=== PATIENT | female | born 1945 | race Caucasian/White ===

== ENCOUNTER → 2017-10-19 09:49 | Outpatient (CLI) | payer MEDICARE, OTHER, SELFPAY ==
[2017-10-19 11:45] LABS: COMMENT (LAB VIEW ONLY) 196.26 mg/dL; Microalb ug/mg Crea 8.5 ug/mg Cr
[2017-10-19 11:48] LABS: Hemoglobin A1C 5.9 % (4.5-6.2)
[2017-10-19 11:54] LABS: ALT 26 U/L (12-78); AST 19 U/L (15-37); Albumin 3.5 g/dL (3.4-5.0); Alkaline Phosphatase 117 U/L (46-116); Anion Gap 9.9 mmol/L (3-11); BUN 23 mg/dL (7-18); Bilirubin, Total 0.4 mg/dL (0.2-1.0); CO2 26.1 mmol/L (21.0-32.0); CREATININE 1.14 mg/dL (0.55-1.02); Calcium 9.2 mg/dL (8.5-10.1); Chloride 104 mmol/L (98-107); Estimated GFR 46.99 (mL/min/1.73m2); Glucose 94 mg/dL (70-100); Potassium 4.2 mmol/L (3.5-5.1); Sodium 140 mmol/L (136-145); TSH (W/Ref FT4) 2.23 uIU/mL (0.358-3.74); Uric Acid 4.9 mg/dL (2.6-6.0)
[2017-10-19 12:07] LABS: Cholesterol 174 mg/dL (50-200); HDL Cholesterol 64 mg/dL (40-60); LDL CHOLESTEROL 94 mg/dL (<100); Triglyceride 137 mg/dL (30-150)
== END ==
PROVIDERS: PCP Family Medicine; Visit Provider Family Medicine
DX: E11.9 Type 2 diabetes mellitus without complications (principal); E78.5 Hyperlipidemia, unspecified; I10 Essential (primary) hypertension; R73.09 Other abnormal glucose; G47.30 Sleep apnea, unspecified; R94.6 Abnormal results of thyroid function studies
CPT/HCPCS: 36415; 80053; 80061; 83721; 82043; 82570; 83036; 84443; 84550

== ENCOUNTER → 2017-10-20 01:53 | Outpatient (CLI) | payer MEDICARE, OTHER, SELFPAY ==
--- NOTE | 2017-10-20 12:43 | DI.REPORT_ITS ---
SYMPTOM/DIAGNOSIS: ABNORMAL CAROTID ON CT, R93.9, ABNORMAL CAROTID US, COUGH, FEELING OF UNABLE TO CLEAR THROAT CAROTID ULTRASOUND: Comparison is made with CT of the neck dated 09/07/17. The internal carotid arteries are quite tortuous. Foci of calcific plaque are seen in the common carotid bulbs and proximal internal carotid arteries. The velocities measurements obtained were within the normal range. No significant stenosis is visualized. There is shadowing in the proximal left internal carotid artery which is suboptimally evaluated. Both vertebral arteries show antegrade flow. IMPRESSION: Mild calcific plaque. No significant internal carotid artery stenosis. Tortuous internal carotid arteries.
== END ==
PROVIDERS: PCP Family Medicine; Visit Provider Family Medicine
DX: R93.8 Abnormal findings on diagnostic imaging of other specified body structures (principal); I65.23 Occlusion and stenosis of bilateral carotid arteries; I77.1 Stricture of artery; R05 Cough
CPT/HCPCS: 93880

== ENCOUNTER 2017-12-26 17:24 | Emergency (ER) | payer MEDICARE, OTHER, SELFPAY ==
[2017-12-26 17:31] VITALS: BP 167/94; PULSE 107; RESP 20; TEMP 36.4; O2SAT 94
--- NOTE | 2017-12-26 18:18 | DI.RAD_ITS ---
SYMPTOM/DIAGNOSIS: COUGH,SOB, H/O BRONCHIECTASIS PA AND LATERAL CHEST: Comparison is made with 04/07/16. Heart size and pulmonary vasculature are stable and within normal limits. There is plate atelectasis in the left lung base. The lungs are otherwise clear. No effusions or pneumothoraces are identified. The bones are intact. IMPRESSION: Plate atelectasis in the left lung base.
[2017-12-26 18:31] LABS: BE (Venous) 0.5 mmol/L (-3-3); HCO3 (Venous) 25 mmol/L (22-28); O2 Sat (Venous) 91 % (70-80); TCO2 (Venous) 22 mmol/L (22-29); pCO2 (Venous) 35 mm/Hg (34-47); pH (Venous) 7.45 (7.32-7.43); pO2 (Venous) 56 mm/Hg (28-44)
[2017-12-26] MEDS: Albuterol/Ipratropium 3 ML UPD VIAL UPD (18:39)
[2017-12-26 18:41] LABS: Abs Immature Grans 0.02 k/cumm (0.0-0.09); Absolute Eosinophil Count 0.25 k/cumm (0.0-0.7); Absolute Lymphocyte Count 1.42 k/cumm (1.2-3.4); Absolute Monocyte Count 1.15 k/cumm (0.11-0.7); Basophils % 0.3; Eosinophils % 2.1; HCT 42.4 % (36.0-46.0); HGB 13.7 g/dL (12.0-15.5); Immature Grans % 0.2; Mean Corp. HGB Concentration 32.3 g/dL (32.0-36.0); Mean Corpuscular Hemoglobin 28.2 pg (27.0-33.0); Mean Corpuscular Volume 87.2 fL (80-95); Mean Platelet Volume 10.6 fL (8.0-11.0); Monocytes % 9.7; Neutrophils % 75.7; Platelet Count 292 x1000/uL (130-400); RBC 4.86 m/cumm (4.00-5.20); RBC Distribution Width 15.2 % (11.7-14.6); White Blood Cell Count 11.85 k/cumm (4.4-10.8)
[2017-12-26 18:46] LABS: Absolute Basophil Count 0.04 k/cumm (0.0-0.2); Absolute Neutrophil Count 8.97 k/cumm (1.2-6.7)
[2017-12-26 18:53] LABS: ALT 32 U/L (12-78); AST 20 U/L (15-37); Albumin 3.2 g/dL (3.4-5.0); Alkaline Phosphatase 122 U/L (46-116); Anion Gap 13.3 mmol/L (3-11); BUN 15 mg/dL (7-18); Bilirubin, Total 0.5 mg/dL (0.2-1.0); CO2 23.7 mmol/L (21.0-32.0); CREATININE 1.05 mg/dL (0.55-1.02); Calcium 9.4 mg/dL (8.5-10.1); Chloride 99 mmol/L (98-107); Estimated GFR 51.66 (mL/min/1.73m2); Glucose 120 mg/dL (70-100); Potassium 3.8 mmol/L (3.5-5.1); Sodium 136 mmol/L (136-145); Total Protein 7.7 g/dL (6.4-8.2)
[2017-12-26 18:54] LABS: Troponin I < 0.02 ng/mL (0.00-0.06)
--- NOTE | 2017-12-26 19:24 | W.ED.GENAD ---
Discharge Plan Disposition Patient Disposition: HOME Condition: Good Discharge Details Chief Complaint: RespSymp Clinical Impression: Pneumonia Primary Care Provider: Khalida Cole ED Provider: Danilo Garcia Home Meds and New Rx's Prescriptions: New azithromycin 250 mg tablet 250 mg PO DAILY 4 Days Qty: 4 RF: 0 prednisone 50 MG tablet 50 mg PO DAILY Qty: 5 RF: 0 ipratropium-albuterol 0.5 mg-3 mg(2.5 mg base)/3 mL solution for nebulization 3 ml IH Q6H Qty: 90 RF: 0 No Action adjuvant AS01B (PF)vial 1 of 2 [Shingrix Adjuvant Component-PF] suspension 0.5 ml IM ONCE Qty: 0.5 RF: 1 lysine [L-Lysine] 500 MG capsule 500 mg PO DAILY RF: 0 ascorbic acid (vitamin C) [Vitamin C] 500 MG tablet 1,000 mg PO DAILY RF: 0 cholecalciferol (vitamin D3) 1,000 UNIT capsule 2 cap PO DAILY RF: 0 calcium-vitamin D3-vitamin K [Viactiv] 1 EACH tablet,chewable 1 ea PO DAILY RF: 0 inhaler,assist devices,access [EasiVent Mask Large] 1 EACH device 1 ea Miscellaneous DIRECTED RF: 0 CENTRUM TABLET 1 EACH tablet 1 tab PO DAILY RF: 0 magnesium oxide 400 MG tablet 400 mg PO BID Qty: 180 RF: 12 albuterol sulfate [ProAir HFA] 8.5 GM HFA aerosol inhaler 2 puff Inhalation Q4H PRN Qty: 3 RF: 4 triamcinolone acetonide 80 GM ointment 5 gm Topical BID PRNQty: 80 RF: 2 simvastatin [Zocor] 20 MG tablet 20 mg PO HS Qty: 90 RF: 4 fluticasone furoate [Flonase Sensimist] 9.9 ML spray,suspension 9.9 ml NS BID RF: 0 esomeprazole magnesium [Nexium] 40 MG capsule,delayed release(DR/EC) 40 mg PO BID Qty: 180 RF: 4 fluticasone-salmeterol [Advair Diskus] 1 EACH blister with device 1 puff Inhalation BID Qty: 3 RF: 11 hydroxyzine pamoate [Vistaril] 25 MG capsule 25 mg PO TID PRNQty: 270 RF: 4 duloxetine [Cymbalta] 30 MG capsule,delayed release(DR/EC) 1 cap PO DAILY Qty: 90 RF: 4 duloxetine [Cymbalta] 60 MG capsule,delayed release(DR/EC) 60 mg PO DAILY Qty: 90 RF: 12 tiotropium bromide [Spiriva with HandiHaler] 18 MCG capsule, w/inhalation device 1 puff Inhalation DAILY Qty: 3 RF: 11 levothyroxine 25 MCG tablet 25 mcg PO DAILY Qty: 90 RF: 11 meloxicam 15 MG tablet 15 mg PO DAILY Qty: 90 RF: 12 losartan 25 MG tablet 25 mg PO DAILY Qty: 90 RF: 12 Varicella-Zoster Ge/As01b/Pf [Shingrix Vial Kit] 50 MCG INJ 50 mcg IM ONCE Qty: 1 RF: 1 acyclovir 15 GM ointment 1 gm Topical TID Qty: 1 RF: 11 mirabegron [Myrbetriq] 25 MG tablet extended release 24 hr 25 mg PO DAILY Qty: 90 RF: 11 metoprolol succinate 100 mg Tablet Extended Release 24 Hr 100 mg PO DAILY RF: 0 cetirizine 10 mg Tablet,Chewable 1 tab PO BID RF: 0 Discharge Instructions Instructions: Pneumonia (ED) Additional Instructions: Please take the antibiotic, steroid, and breathing treatments as directed. If you notice any worsening of your symptoms, or any new symptoms such as vomiting, diarrhea, fever, chills, shortness of breath, chest pain, numbness, weakness, or fainting , please return immediately to the emergency department for reevaluation. Please follow up with your primary care provider as soon as possible for reassessment and reevaluation. As always, it was a pleasure participating in your medical care today. Referrals: Khalida Cole MD, [place] [Primary Care Provider] - Medical Decision Making This is a pleasant 72-year-old female with past medical history of bronchiectasis, COPD, hypertension and high cholesterol. She presents today for 4 days of cough with productive green sputum, subjective temperature at home which she states was roughly 100, some mild shortness of breath. She denies any red flags for pulmonary embolism. Physical exam demonstrates notable wheezes and mild crackles in her lung bases. With a productive green sputum, I am concerned for pneumonia versus bronchitis. We will get a chest x-ray, perform a cardiac workup secondary to the mild chest pain that she has. I feel that it is most likely secondary to a cough and potential bronchitis versus pneumonia, and less likely cardiac in etiology. EKG 18: 33 Rate 92, intervals normal, normal sinus rhythm, no ST elevations or depressions, questionable Q waves in lead III, inverted T wave in V1. No other significant abnormalities. 8 PM Patient's laboratory workup demonstrates mildly elevated white count at 11.8, no bandemia. VBG demonstrates no signs of CO2 retention. Renal function is at her baseline, no other significant abnormalities, troponin is normal. EKG is benign. The patient has notable improvement of her symptoms after her updraft treatment. Chest x-ray is negative for any acute process however I do feel that the patient is certainly suffering from clinical pneumonia with fever, reductive cough, and breath sounds. We will give the patient a first dose of azithromycin here, steroids for home use, and duo nebs for home use with her home nebulizer. We discussed red flags which to return the patient understands. I have extensively reviewed the treatment plan and discharge instructions with the patient and their family. I have addressed all patient concerns at this time. The patient and family was made aware of what symptoms to monitor for that would warrant a return to the emergency department. Discussed the plan with the patient and family, they demonstrate verbal understanding and agreement with our assessment and plan at this time. HPI General Date/Time Provider Initiated Documentation: 12/26/17 18:17. HPI Narrative: This is a 72-year-old female with a past medical history of COPD, bronchiectasis, hypertension, high cholesterol, and 5 weeks of a hoarse throat for which she is getting GI follow-up for evaluation. She and her both present today for symptoms of cough with productive sputum. They state that 4 days ago there exposed to a family member who had symptoms of an upper respiratory infection cough, since then they have had symptoms of cough, with productive sputum. The patient states that she has had a very mild chest pain, but only associated with cough, nonpleuritic, no heavy weight on her chest, no arm or neck pain. She denies any history of cardiac disease. Her sputum has been green in color. She had a temperature at home of 100 ?F today. She was previously on 5 days of steroids by her PCP for her hoarse throat, and had a prescription for azithromycin but threw it away, and is requesting a new one. The patient denies any severe shortness of breath, significant wheeze. She does take her breathing treatments at home and she states that these significantly improve her symptoms. Denies PE risk factors such as recent long car rides, immobilization, recent surgery, prior history of DVT or PE, family history of PE or DVT, morbid obesity, exogenous estrogen and smoking, hemoptysis, history of cancer. Patient denies any other complaints, or any other modifying factors at this time. She denies any recent surgeries, she denies any pertinent family history Related Data Home Medications Medication Instructions Recorded Confirmed Centrum Tablet 1 tab PO DAILY 05/14/12 11/19/17 ascorbic acid (vitamin C) [Vitamin 1,000 mg PO DAILY 05/14/12 12/26/17 C] calcium-vitamin D3-vitamin K 1 ea PO DAILY tab.chew 05/14/12 12/26/17 [Viactiv] cholecalciferol (vitamin D3) 2 cap PO DAILY 05/14/12 12/26/17 inhaler,assist devices,access ea 05/14/12 11/19/17 [EasiVent Mask Large] lysine [L-Lysine] 500 mg PO DAILY 05/14/12 12/26/17 albuterol sulfate [ProAir HFA] 2 puff INHALATION Q4H PRN #3 06/06/13 12/26/17 inhaler magnesium oxide 400 mg PO BID #180 tab 06/06/13 12/26/17 triamcinolone acetonide 5 gm TOPICAL BID PRN #80 ml 06/02/16 12/26/17 simvastatin [Zocor] 20 mg PO HS #90 tab 04/06/17 12/26/17 duloxetine [Cymbalta] 1 cap PO DAILY #90 cap 04/23/17 12/26/17 duloxetine [Cymbalta] 60 mg PO DAILY #90 tab-cap 04/23/17 12/26/17 esomeprazole magnesium [Nexium] 40 mg PO BID #180 tab-cap 04/23/17 12/26/17 fluticasone furoate [Flonase 9.9 ml NS BID 04/23/17 12/26/17 Sensimist] fluticasone-salmeterol [Advair 1 puff INHALATION BID #3 disk 04/23/17 12/26/17 500/50 Diskus] hydroxyzine pamoate [Vistaril] 25 mg PO TID PRN #270 cap 04/23/17 12/26/17 tiotropium bromide [Spiriva 1 puff INHALATION DAILY #3 canister 04/23/17 12/26/17 Handihaler] levothyroxine 25 mcg PO DAILY #90 tab-cap 05/26/17 12/26/17 losartan 25 mg PO DAILY #90 tab-cap 07/20/17 12/26/17 meloxicam 15 mg PO DAILY #90 tab-cap 07/20/17 12/26/17 acyclovir 1 gm TOPICAL TID #1 tube 08/01/17 12/26/17 mirabegron [Myrbetriq] 25 mg PO DAILY #90 tab-cap 10/19/17 12/26/17 adjuvant AS01B (PF), component 0.5 ml IM ONCE #0.5 ml 11/19/17 12/26/17 vial 1 of 2 intramuscular suspension azithromycin 250 mg PO DAILY 4 Days #4 tab 12/26/17 cetirizine 1 tab PO BID 12/26/17 12/26/17 ipratropium-albuterol 3 ml IH Q6H #90 ml 12/26/17 metoprolol succinate 100 mg PO DAILY 12/26/17 12/26/17 prednisone 50 mg PO DAILY #5 tab 12/26/17 Previous Rx's Medication Instructions Recorded simvastatin [Zocor] 20 mg PO HS #90 tab 04/06/17 duloxetine [Cymbalta] 1 cap PO DAILY #90 cap 04/23/17 duloxetine [Cymbalta] 60 mg PO DAILY #90 tab-cap 04/23/17 esomeprazole magnesium [Nexium] 40 mg PO BID #180 tab-cap 04/23/17 fluticasone-salmeterol [Advair 1 puff INHALATION BID #3 disk 04/23/17 500/50 Diskus] tiotropium bromide [Spiriva 1 puff INHALATION DAILY #3 canister 04/23/17 Handihaler] levothyroxine 25 mcg PO DAILY #90 tab-cap 05/26/17 losartan 25 mg PO DAILY #90 tab-cap 07/20/17 meloxicam 15 mg PO DAILY #90 tab-cap 07/20/17 acyclovir 1 gm TOPICAL TID #1 tube 08/01/17 mirabegron [Myrbetriq] 25 mg PO DAILY #90 tab-cap 10/19/17 adjuvant AS01B (PF), component 0.5 ml IM ONCE #0.5 ml 11/19/17 vial 1 of 2 intramuscular suspension azithromycin 250 mg PO DAILY 4 Days #4 tab 12/26/17 ipratropium-albuterol 3 ml IH Q6H #90 ml 12/26/17 prednisone 50 mg PO DAILY #5 tab 12/26/17 Allergies Allergy/AdvReac Type Severity Reaction Status Date / Time enalapril Allergy Unknown SKIN RASH Unverified 12/26/17 17:37 hydrochlorothiazide Allergy Unknown Unverified 12/26/17 17:37 pneumococcal vaccine Allergy Unknown Unverified 12/26/17 17:37 nitrofurantoin Allergy SKIN RASH Unverified 12/26/17 17:37 Sulfa (Sulfonamide Allergy RASH Unverified 12/26/17 17:37 Antibiotics) oxycodone AdvReac Intermediate VOMITING Unverified 12/26/17 17:37 General Stated Complaint: RespSymp CARLOS: 3 Review of Systems Review of Systems All systems reviewed & are unremarkable except as noted in HPI and below PFSH Family History Mother Heart disease Father Substance abuse Alcohol abuse Heart disease Neoplasm Asthma Sister Diabetes Alcohol abuse Heart disease Grandfather No problems noted. Grandfather No problems noted. Grandmother Diabetes Grandmother Heart disease Sister Diabetes Son Substance abuse Alcohol abuse Essential hypertension Asthma Daughter Depression Social History household members: other details: 2 current occupational status: retired frequency: 3-4 times per week duration: < 15 minutes/day Smoking/Tobacco Use Status: Former Tobacco Use alcohol intake: current alcohol intake frequency: a few times a month substance use type: does not use sera/jew: c agree to transfusion: No Surgical History Bladder Surgery Cholecystectomy (~1994) Colonoscopy - MAC (~2003) Extraction of cataract (09/07/12) Ligation of fallopian tube (~1976) Reduction mammoplasty (~2013) Rotator Cuff Repair back surgery (~04/2006) Exam Narrative Exam Narrative: 1.Const: Well-nourished, Well-developed, appearing stated age 2.Eyes: PERRL, no conjunctival injection, and symmetrical lids. 3.ENT: Atraumatic external nose and ears. Moist MM. Neck: Symmetric, trachea midline, No thyromegaly. 4.CVS: +S1/S2, No murmurs or gallops. Peripheral pulses 2+ and equal in all extremities. Brisk capillary refill in all extremities. 5.RESP: Unlabored respiratory effort. Mild wheezes, minimal crackles. No rhonchi. 6.GI: Soft, Nontender/Nondistended, No hepatosplenomegaly. No guarding or rebound. 7.MSK: Normocephalic/Atraumatic, Extremities w/o deformity or ttp No cyanosis or clubbing, Normal movement of all extremities. No calf tenderness. Negative Homans sign. 8.Skin: Warm, Dry. No rashes or lesions. 9.Neuro: bat person II-XII grossly intact. Sensation grossly intact, no focal neurologic deficits. 10.Psych: (AAO) x3. Appropriate mood and affect Course Vital Signs Temperature 36.4 C L 12/26/17 17:31 Pulse 107 H 12/26/17 17:31 Respiratory Rate 20 12/26/17 17:31 Blood Pressure 167/94 H 12/26/17 17:31 Pulse Oximetry 94 L 12/26/17 17:31 Temperature 36.4 C L 12/26/17 17:31 Pulse 107 H 12/26/17 17:31 Respiratory Rate 20 12/26/17 17:31 Respiratory Effort 12/26/17 17:55 Blood Pressure 167/94 H 12/26/17 17:31 Pulse Oximetry 94 L 12/26/17 17:31 Pain Level 8 12/26/17 17:31 Lab/Test Results Lab/Test Results: Laboratory Tests Range/Units 12/26/17 12/26/17 12/26/17 18:22 18:22 18:22 WBC (4.4-10.8) k/cumm 11.85 H RBC (4.00-5.20) m/cumm 4.86 Hgb (12.0-15.5) g/dL 13.7 Hct (36.0-46.0) % 42.4 MCV (80-95) fL 87.2 MCH (27.0-33.0) pg 28.2 MCHC (32.0-36.0) g/dL 32.3 RDW (11.7-14.6) % 15.2 H Plt Count (130-400) x1000/uL 292 MPV (8.0-11.0) fL 10.6 Immature Gran % 0.2 Neutrophils % 75.7 Lymphocytes % 12.0 Monocytes % 9.7 Eosinophils % 2.1 Basophils % 0.3 Absolute Neutrophils (1.2-6.7) k/cumm 8.97 H Absolute Lymphocytes (1.2-3.4) k/cumm 1.42 Absolute Monocytes (0.11-0.7) k/cumm 1.15 H Absolute Eosinophils (0.0-0.7) k/cumm 0.25 Absolute Basophils (0.0-0.2) k/cumm 0.04 VBG pH (7.32-7.43) 7.45 H VBG pCO2 (34-47) mm/Hg 35 VBG pO2 (28-44) mm/Hg 56 H VBG HCO3 (22-28) mmol/L 25 VBG Total CO2 (22-29) mmol/L 22 VBG O2 Saturation (70-80) % 91 H VBG Base Excess (-3-3) mmol/L 0.5 Sodium (136-145) mmol/L 136 Potassium (3.5-5.1) mmol/L 3.8 Chloride (98-107) mmol/L 99 Carbon Dioxide (21.0-32.0) mmol/L 23.7 Anion Gap (3-11) mmol/L 13.3 H BUN (7-18) mg/dL 15 Creatinine (0.55-1.02) mg/dL 1.05 H Estimated GFR/1.73 m2 (mL/min/1.73m2) 51.66 Glucose (70-100) mg/dL 120 H Calcium (8.5-10.1) mg/dL 9.4 Total Bilirubin (0.2-1.0) mg/dL 0.5 AST (15-37) U/L 20 ALT (12-78) U/L 32 Alkaline Phosphatase (46-116) U/L 122 H Troponin I (0.00-0.06) ng/mL < 0.02 Total Protein (6.4-8.2) g/dL 7.7 Albumin (3.4-5.0) g/dL 3.2 L
--- NOTE | 2017-12-26 19:34 | DI.VRAD_ITS ---
EXAM: XR Chest, 2 Views CLINICAL HISTORY: 72 years old, female; Signs and symptoms; Cough TECHNIQUE: Frontal and lateral views of the chest. COMPARISON: CR CHEST 2 VIEWS PA,LAT 04/07/2016 10:55 AM FINDINGS: Lungs: The base atelectasis no acute pulmonary infiltrate. No consolidation. Pleural space: Unremarkable. No pneumothorax. Heart: Unremarkable. No cardiomegaly. Mediastinum: Possible hiatal hernia. Bones/joints: Degenerative change of the spine. Vasculature: Uncoiled aorta. IMPRESSION: No acute findings. Dictated and Authenticated by: Heath Calvillo MD. Ordering:IRA DAWN MD
[2017-12-26] MEDS: Azithromycin 250 MG TAB 500 MG PO (19:50)
[2017-12-26 20:19] VITALS: BP 123/65; PULSE 110; RESP 18; TEMP 37.2; O2SAT 95
== END 2017-12-26 20:34 | disposition home or self-care (01) ==
PROVIDERS: Emergency Provider Student in an Organized Health Care Education/Training Program; PCP Family Medicine
DX: J18.9 Pneumonia, unspecified organism (principal); I12.9 Hypertensive chronic kidney disease with stage 1 through stage 4 chronic kidney disease, or unspecified chronic kidney disease; N18.9 Chronic kidney disease, unspecified; J44.9 Chronic obstructive pulmonary disease, unspecified; Z87.891 Personal history of nicotine dependence
CPT/HCPCS: 36415; 80053; 82805; 93005; 99285; 71046; 84484; 85025; 93010; J7620

== ENCOUNTER 2018-01-22 14:43 | Outpatient (REF) | payer MEDICARE, OTHER, SELFPAY | END 2018-01-22 15:03 | LOC: LBN 14:43 | PROVIDERS: PCP Family Medicine; Visit Provider Nurse Practitioner | DX: J47.9 Bronchiectasis, uncomplicated (principal) | CPT/HCPCS: 87077; 87070; 87205 ==

== ENCOUNTER 2018-06-04 16:41 | Outpatient (REF) | payer MEDICARE, OTHER, SELFPAY | END 2018-06-04 17:01 | LOC: LBN 16:41 | PROVIDERS: PCP Family Medicine; Visit Provider Family Medicine | DX: N39.0 Urinary tract infection, site not specified (principal) | CPT/HCPCS: 87077; 87086; 87186 ==

== ENCOUNTER 2018-07-06 13:12 | Outpatient (REF) | payer MEDICARE, OTHER, SELFPAY ==
[2018-07-06 13:58] LABS: Bilirubin Negative (Negative); Blood Moderate (Negative); Clarity Cloudy; Glucose Negative (Negative); Ketones Negative (Negative); Leukocyte Esterase Small (Negative); Nitrite Negative (Negative); Specific Gravity 1.025 (1.005-1.025); Urobilinogen 0.2 EU/dL (Up TO 0.2)
[2018-07-06 14:10] LABS: WBC 20-50 HPF (0-5)
[2018-07-06 14:11] LABS: Bacteria Few HPF (Negative); C & S Indicated? Yes; Casts Negative LPF (Negative); Crystals Negative HPF (Negative); Epithelial Cells Few HPF (Negative); Mucus Negative (Negative); RBC >50 (0-2)
== END 2018-07-06 13:32 ==
LOC: LBN 13:12
PROVIDERS: PCP Family Medicine; Visit Provider Family Medicine
DX: R35.0 Frequency of micturition (principal)
CPT/HCPCS: 81003; 81015; 87086

== ENCOUNTER 2018-07-10 10:43 | Outpatient (REF) | payer MEDICARE, OTHER, SELFPAY ==
[2018-07-10 11:44] LABS: Bilirubin Negative (Negative); Blood Negative (Negative); Clarity Clear; Glucose Negative (Negative); Ketones Negative (Negative); Leukocyte Esterase Trace (Negative); Nitrite Negative (Negative); Urobilinogen 0.2 EU/dL (Up TO 0.2)
[2018-07-10 11:55] LABS: C & S Indicated? C&S Done As Ordered
== END 2018-07-10 11:03 ==
LOC: LBN 10:43
PROVIDERS: PCP Family Medicine; Visit Provider Family Medicine
DX: R35.0 Frequency of micturition (principal)
CPT/HCPCS: 81003; 81015; 87086

== ENCOUNTER 2018-08-26 00:46 | Outpatient (CLI) | payer MEDICARE, OTHER, SELFPAY ==
--- NOTE | 2018-08-26 12:02 | DI.MAMMO_ITS ---
SYMPTOM/DIAGNOSIS: SCREENING Z12.31 MAMMOGRAM: 08/26 Mammograms were interpreted according to the usual protocol including computer analysis with CAD system, tomosynthesis and C view imaging. The breasts are of moderate density with fairly symmetrical distribution of fibroglandular tissue. The patient has reportedly had previous reduction mammoplasty and there are apparent bilateral oil cysts of the breasts unchanged in appearance in comparison with examination of July 2016, No new mass or clumped microcalcification seen. CONCLUSION: No specific evidence of malignancy at this time. Routine screening examinations are suggested at yearly intervals in this age group according to the ACS/ACR guidelines. Category 1, breast density category B MQSA ASSESSMENT OF FINDINGS: Negative. Category 1. Patient will receive a letter notifying them of these results. BI-RADS category B. There are scattered areas of fibroglandular density.
== END 2018-08-26 01:06 ==
PROVIDERS: PCP Family Medicine; Visit Provider Family Medicine
DX: Z12.31 Encounter for screening mammogram for malignant neoplasm of breast (principal)
CPT/HCPCS: 77063; 77067

== ENCOUNTER 2018-09-03 13:54 | Outpatient (REF) | payer MEDICARE, OTHER, SELFPAY | END 2018-09-03 14:14 | LOC: LBN 13:54 | PROVIDERS: PCP Family Medicine; Visit Provider Internal Medicine | DX: J47.9 Bronchiectasis, uncomplicated (principal) | CPT/HCPCS: 87077; 87070; 87205 ==

== ENCOUNTER 2018-10-21 02:25 | Outpatient (CLI) | payer MEDICARE, OTHER, SELFPAY ==
[2018-10-21 12:14] LABS: ALT 23 U/L (12-78); AST 18 U/L (15-37); Albumin 3.3 g/dL (3.4-5.0); Alkaline Phosphatase 124 U/L (46-116); Anion Gap 11.7 mmol/L (3-11); BUN 18 mg/dL (7-18); Bilirubin, Total 0.4 mg/dL (0.2-1.0); CO2 23.3 mmol/L (21.0-32.0); CREATININE 1.04 mg/dL (0.55-1.02); Calcium 9.1 mg/dL (8.5-10.1); Calculated LDL 93 mg/dL; Chloride 106 mmol/L (98-107); Cholesterol 177 mg/dL (50-200); Estimated GFR 52.09 (mL/min/1.73m2); Glucose 125 mg/dL (70-100); HDL Cholesterol 59 mg/dL (40-60); Potassium 3.9 mmol/L (3.5-5.1); Sodium 141 mmol/L (136-145); TSH (W/Ref FT4) 6.62 uIU/mL (0.36-3.74); Total Protein 6.5 g/dL (6.4-8.2); Triglyceride 125 mg/dL (30-150)
[2018-10-21 12:38] LABS: FREE T4 0.98 ng/dL (0.76-1.46)
== END 2018-10-21 02:45 ==
PROVIDERS: PCP Family Medicine; Visit Provider Family Medicine
DX: E03.9 Hypothyroidism, unspecified (principal); I10 Essential (primary) hypertension; E78.5 Hyperlipidemia, unspecified; J47.9 Bronchiectasis, uncomplicated; E11.9 Type 2 diabetes mellitus without complications
CPT/HCPCS: 36415; 80053; 80061; 83721; 83036; 84439; 84443

== ENCOUNTER 2018-10-28 23:00 | Outpatient (REF) | payer MEDICARE, OTHER, SELFPAY ==
[2018-10-28 19:16] LABS: Bilirubin Negative (Negative); Blood Trace-intact (Negative); Clarity Cloudy (Clear); Glucose Negative (Negative); Ketones Negative (Negative); Leukocyte Esterase Large (Negative); Nitrite Negative (Negative); Urobilinogen 0.2 EU/dL (Up TO 0.2)
[2018-10-28 19:50] LABS: Bacteria Packed HPF (Negative); C & S Indicated? Yes; WBC >50 HPF (0-5)
== END 2018-10-28 23:20 ==
LOC: LBN 23:00
PROVIDERS: PCP Family Medicine; Visit Provider Family Medicine
DX: N39.0 Urinary tract infection, site not specified (principal)
CPT/HCPCS: 87077; 81003; 81015; 87086; 87186

== ENCOUNTER 2018-10-29 00:25 | Outpatient (CLI) | payer MEDICARE, OTHER, SELFPAY ==
--- NOTE | 2018-10-29 10:14 | DI.RAD_ITS ---
SYMPTOM/DIAGNOSIS: LEFT SHOULDER PAIN M25.512, G89.29 LEFT SHOULDER: There is some spurring at the AC joint undersurface of the acromion. Spurring is also noted at the glenoid and inferior humeral head. The humeral head is normally positioned. The glenohumeral joint is well maintained. No tendon or joint space calcifications are seen. IMPRESSION: Mild to moderate degenerative changes.
== END 2018-10-29 00:45 ==
PROVIDERS: PCP Family Medicine; Visit Provider Family Medicine
DX: G89.29 Other chronic pain (principal); M25.512 Pain in left shoulder; M19.012 Primary osteoarthritis, left shoulder
CPT/HCPCS: 73030

== ENCOUNTER 2018-12-09 08:24 | Emergency (ER) | payer MEDICARE, OTHER, SELFPAY ==
[2018-12-09 08:28] VITALS: BP 168/89; PULSE 75; RESP 20; TEMP 36.1; O2SAT 96
--- NOTE | 2018-12-09 08:39 | ED.GENADUL_ITS ---
Discharge Plan Disposition Patient Disposition: HOME Condition: Stable Discharge Details Chief Complaint: Abd Prob Clinical Impression: Complex ovarian cyst, Abdominal pain Primary Care Provider: Khalida Cole ED Provider: Mary Fritz Home Meds and New Rx's Prescriptions: New hydrocodone-acetaminophen [Supply] 5-325 mg tablet 1 tab PO Q6H PRN (Reason: pain) Qty: 7 RF: 0 ondansetron 4 mg tablet,disintegrating 4 mg PO Q6H PRN (Reason: nausea and vomiting) Qty: 10 RF: 0 Continued Dexilant 60 mg capsule,biphase delayed releas 60 mg PO DAILY Qty: 90 RF: 5 Flonase Sensimist 27.5 mcg/actuation spray,suspension 1 spray NS BID Qty: 47.4 RF: 5 nystatin 100,000 unit/mL suspension 2 ml PO QID Qty: 250 RF: 3 albuterol sulfate [Proventil HFA] 90 mcg/actuation HFA aerosol inhaler 2 puff IH Q6H PRN (Reason: shortness of breath or wheezing) Qty: 18 RF: 4 meloxicam 15 mg tablet 15 mg PO DAILY Qty: 90 RF: 12 levothyroxine 25 mcg tablet 25 mcg PO DAILY RF: 0 Shingrix Adjuvant Component-PF suspension 1 ml IM ONCE Qty: 0.5 RF: 1 L-Lysine 500 MG capsule 500 mg PO DAILY RF: 0 cholecalciferol (vitamin D3) 1,000 UNIT capsule 2 cap PO DAILY RF: 0 calcium-vitamin D3-vitamin K [Viactiv] 1 EACH tablet,chewable 1 ea PO DAILY RF: 0 (DME) EasiVent Mask Large 1 EACH device 1 ea Miscellaneous DIRECTED RF: 0 CENTRUM TABLET 1 EACH tablet 1 tab PO DAILY RF: 0 magnesium oxide 400 MG tablet 400 mg PO BID Qty: 180 RF: 12 triamcinolone acetonide 80 GM ointment 5 gm Topical BID PRNQty: 80 RF: 2 acyclovir 15 GM ointment 1 gm Topical TID Qty: 1 RF: 11 duloxetine [Cymbalta] 60 mg capsule,delayed release(DR/EC) 60 mg PO DAILY Qty: 90 RF: 12 duloxetine [Cymbalta] 30 mg capsule,delayed release(DR/EC) 30 mg PO DAILY Qty: 90 RF: 4 fluticasone propion-salmeterol [Advair Diskus] 500-50 mcg/dose blister with device 1 inh Inhalation BID Qty: 3 RF: 11 metoprolol succinate 100 mg tablet extended release 24 hr 100 mg PO DAILY Qty: 90 RF: 4 Spiriva with HandiHaler 18 mcg capsule, w/inhalation device 1 cap Inhalation DAILY Qty: 90 RF: 11 simvastatin [Zocor] 20 mg tablet 20 mg PO HS Qty: 90 RF: 4 losartan 25 mg tablet 25 mg PO DAILY Qty: 90 RF: 12 hydroxyzine pamoate [Vistaril] 25 mg capsule 25 mg PO TID PRN (Reason: nausea and vomiting) Qty: 270 RF: 0 metoclopramide HCl 5 mg tablet 5 mg PO BID Qty: 180 RF: 4 cetirizine 10 mg Tablet,Chewable 1 tab PO BID RF: 0 ipratropium-albuterol 0.5 mg-3 mg(2.5 mg base)/3 mL solution for nebulization 3 ml IH Q6H Qty: 90 RF: 0 Discharge Instructions Instructions: Ovarian Cyst (ED) Additional Instructions: Encourage hydration. Please begin a stool softener such as MiraLAX to help prevent constipation while you are taking the opiate pain medications. You have a large 18 cm ovarian mass that will need further evaluation with gynecology. You have an appointment tomorrow at 3:[address] Siddiqi and women's wellness. You may use the hydrocodone as prescribed to help with discomfort. Take care of that this artery contains 325 mg of Tylenol and you should not exceed your daily total of Tylenol by 3000 mg. You may use the Zofran as prescribed if your nausea vomiting recurs. If you develop new or worsening symptoms please seek care urgently once again. Referrals: Sandra Siddiqi [ [facility] STAFF PHYSICIAN] - 12/10/18 3:20 pm Discharge Data Discharge Date/Time-TO BE ENTERED AT DEPARTURE: 12/09/18 13:27 Medical Decision Making Patient 73-year-old female presenting today accompanied by her , with chief complaint of abdominal pain. She reports that she is been having some diffuse abdominal pain for the past several weeks. Has been seen by her primary care for this. Patient was assisting with some mild constipation. She reports that she continues to have bowel movements daily but they have been more firm and she has had to strain more than typical. Denies any blood in her stool. States that she has increased fiber. Has minimal water intake throughout the course the day at her report. She reports that yesterday, she noted new onset of severe discomfort in the left flank. States this pain radiates down towards the left lower quadrant. She denies any dysuria, hematuria, increased frequency urgency. No vaginal discharge. States she also has some discomfort in the low central abdomen. Past surgical history pertinent for tubal ligation, lap scopic cholecystectomy. Patient has history of anxiety, PTSD, gastritis, diabetes, nephropathy, hemorrhoids, Giardia, hypokalemia, irritable colon, fibromyalgia, reflux esophagitis, hyperlipidemia, hypothyroidism, hypertension. Her last colonoscopy was in 2015. At that time, no acute abnormalities were noted on the colonoscopy. Patient also underwent an EGD at that time. She reports that with the new onset of left flank pain yesterday, she also had nausea and dry heaves. At that point, had not been expensing any nausea has no change in her appetite.. Is not currently nauseated. Was able to have ruth tea this morning with no increase or change in his symptoms. Had 3 bowel movements last night which is atypical for her. States that they were softer than her typical. No blood in her stool. No vaginal symptoms. On exam, patient is an obese 73-year-old female. She is resting comfortably. She does seem to have pain particular with movement and laying supine. She reports laying supine or on her sides because the pain to increase. She has no CVA tenderness but does indicate this area is area of maximal discomfort. No rashes noted over this area. Abdomen is significant for tenderness in the left upper and left lower quadrant with no guarding, rebound tenderness or peritoneal findings. Hypoactive bowel sounds noted. She does report that she had multiple bowel movements last night, states that the stools were slightly softer last night. Passing flatus today. Labs reviewed. Patient has no leukocytosis, she is not anemic. Mild anion gap of 13. constulted with Dr. Siddiqi who will see the patient as soon as possible in clinic. I do not feel that hte patient has an emergent issue with this as her pain has been increasing over several weeks and that she has no peritoneal findings. I did advise that with her pain she should be evaluated sooner than later, Dr. Siddiqi hoping to get her in for evaluation within the next 24 hours. Requested transvaginal US. Will obtain prior to discharge. Transvaginal ultrasound was obtained and reviewed by radiologist: FINDINGS: Pelvic ultrasound was performed transabdominally and transvaginally. There is a large pelvic abdominal mass as identified on CT. Uterus is retroflexed and unremarkable in appearance with 1-2 millimeter thick homogeneous endometrial stripe. The ovaries are not specifically visualized. The mass measures 17 cm in greatest diameter and is for dominantly cyst cystic with some thickened septations and thickened wall as identified CT. No gross abnormality identified on Doppler evaluation. IMPRESSION: Large probable abdominal mass, presumably ovarian origin, but not specifically identified as originating from right or left ovary. Findings highly suspicious for ovarian carcinoma in this age group. Patient is an appointment tomorrow with gynecology. She will be prescribed a short of Supply to help with her discomfort was found. She has no recurrent nausea. She is given strict return precautions. All other questions and concer ns were addressed and she is in agreement this plan. [facility] General Mode of arrival: ambulatory . Date/Time Provider Initiated Documentation: 12/09/18 08:39 . Limitations to Documentation: no limitations . Information obtained by: patient, family () and RN notes reviewed . History of Present Illness 73 year old F presents to the emergency department with the chief complaint of abdominal pain, described as severe, with intensity rated at 10. Quality is described as aching, and is localized to the abdomen. Patient reports radiation to back (indicates left flank as area of maximal tenderness). Patient started experiencing this week(s) (generalized pain began several weeks ago, left flank pain began yesterday) and it has been constant. other things that improve symptom(s), (upright position) Other factors that worsen symptoms (laying supine) . Patient notes denies chest pain, cough, diaphoresis, fever/chills, headaches, loss of appetite, malaise, nausea/vomiting, rash, shortness of breath and weakness. Patient did receive the following treatments prior to arrival, none Related Data Home Medications Medication Instructions Recorded Confirmed Centrum Tablet 1 tab PO DAILY 05/14/12 12/10/18 EasiVent Mask Large ea 05/14/12 12/10/18 L-Lysine 500 mg PO DAILY 05/14/12 12/10/18 calcium-vitamin D3-vitamin K 1 ea PO DAILY tab.chew 05/14/12 12/10/18 [Viactiv] cholecalciferol (vitamin D3) 2 cap PO DAILY 05/14/12 12/10/18 magnesium oxide 400 mg PO BID #180 tab 06/06/13 12/10/18 triamcinolone acetonide 5 gm TOPICAL BID PRN #80 ml 06/02/16 12/10/18 acyclovir 1 gm TOPICAL TID #1 tube 08/01/17 12/10/18 cetirizine 1 tab PO BID 12/26/17 12/10/18 ipratropium-albuterol 3 ml IH Q6H #90 ml 12/26/17 12/10/18 dexlansoprazole 60 mg 60 mg PO DAILY #90 cap 01/26/18 12/10/18 capsule,biphase delayed release fluticasone furoate 27.5 1 spray NS BID #47.4 ml 01/26/18 12/10/18 mcg/actuation nasal spray,suspension nystatin 100,000 unit/mL oral 2 ml PO QID #250 ml 01/26/18 12/10/18 suspension duloxetine 30 mg capsule,delayed 30 mg PO DAILY #90 cap 05/04/18 12/10/18 release duloxetine 60 mg capsule,delayed 60 mg PO DAILY #90 tab-cap 05/04/18 12/10/18 release fluticasone 500 mcg-salmeterol 50 1 inh INHALATION BID #3 each 05/04/18 12/09/18 mcg/dose blistr powdr for inhalation metoprolol succinate 100 mg 100 mg PO DAILY #90 tab 05/04/18 12/10/18 tablet,extended release 24 hr tiotropium bromide 18 mcg capsule 1 cap INHALATION DAILY #90 inh 05/04/18 12/10/18 with inhalation device simvastatin 20 mg tablet 20 mg PO HS #90 tab 07/05/18 12/10/18 losartan 25 mg tablet 25 mg PO DAILY #90 tab-cap 08/23/18 12/10/18 adjuvant AS01B (PF)vial 1 of 2 1 ml IM ONCE #0.5 ml 08/26/18 12/09/18 levothyroxine 25 mcg tablet 25 mcg PO DAILY tab-cap 08/26/18 12/10/18 hydroxyzine pamoate 25 mg capsule 25 mg PO TID PRN #270 cap 09/22/18 12/10/18 metoclopramide HCl 5 mg tablet 5 mg PO BID #180 tab 09/26/18 12/10/18 albuterol sulfate 90 mcg/actuation 2 puff IH Q6H PRN #18 gm 10/26/18 12/10/18 aerosol inhaler meloxicam 15 mg tablet 15 mg PO DAILY #90 tab-cap 10/26/18 12/10/18 hydrocodone-acetaminophen [Supply] 1 tab PO Q6H PRN #7 tab 12/09/18 12/10/18 ondansetron 4 mg PO Q6H PRN #10 tab 12/09/18 12/10/18 Previous Rx's Medication Instructions Recorded acyclovir 1 gm TOPICAL TID #1 tube 08/01/17 ipratropium-albuterol 3 ml IH Q6H #90 ml 12/26/17 dexlansoprazole 60 mg 60 mg PO DAILY #90 cap 01/26/18 capsule,biphase delayed release fluticasone furoate 27.5 1 spray NS BID #47.4 ml 01/26/18 mcg/actuation nasal spray,suspension nystatin 100,000 unit/mL oral 2 ml PO QID #250 ml 01/26/18 suspension duloxetine 30 mg capsule,delayed 30 mg PO DAILY #90 cap 05/04/18 release duloxetine 60 mg capsule,delayed 60 mg PO DAILY #90 tab-cap 05/04/18 release fluticasone 500 mcg-salmeterol 50 1 inh INHALATION BID #3 each 05/04/18 mcg/dose blistr powdr for inhalation metoprolol succinate 100 mg 100 mg PO DAILY #90 tab 05/04/18 tablet,extended release 24 hr tiotropium bromide 18 mcg capsule 1 cap INHALATION DAILY #90 inh 05/04/18 with inhalation device simvastatin 20 mg tablet 20 mg PO HS #90 tab 07/05/18 losartan 25 mg tablet 25 mg PO DAILY #90 tab-cap 08/23/18 adjuvant AS01B (PF)vial 1 of 2 1 ml IM ONCE #0.5 ml 08/26/18 hydroxyzine pamoate 25 mg capsule 25 mg PO TID PRN #270 cap 09/22/18 metoclopramide HCl 5 mg tablet 5 mg PO BID #180 tab 09/26/18 albuterol sulfate 90 mcg/actuation 2 puff IH Q6H PRN #18 gm 10/26/18 aerosol inhaler meloxicam 15 mg tablet 15 mg PO DAILY #90 tab-cap 10/26/18 hydrocodone-acetaminophen [Supply] 1 tab PO Q6H PRN #7 tab 12/09/18 ondansetron 4 mg PO Q6H PRN #10 tab 12/09/18 Allergies Allergy/AdvReac Type Severity Reaction Status Date / Time enalapril Allergy Unknown SKIN RASH Verified 12/10/18 15:33 hydrochlorothiazide Allergy Unknown Verified 12/10/18 15:33 pneumococcal vaccine Allergy Unknown Verified 12/10/18 15:33 nitrofurantoin Allergy SKIN RASH Verified 12/10/18 15:33 Sulfa (Sulfonamide Allergy RASH Verified 12/10/18 15:33 Antibiotics) oxycodone AdvReac Intermediate VOMITING Verified 12/10/18 15:33 General Stated Complaint: Abd Prob CARLOS: 3 Review of Systems Constitutional Constitutional: Reports as per HPI, Denies chills, Denies fatigue, Denies fever(s) and Denies headache(s) ENT Ears, Nose, Mouth, and Throat: Denies headache(s) Cardiovascular Cardiovascular: Reports as per HPI, Denies chest pain and Denies dyspnea Respiratory Respiratory: Reports as per HPI, Denies cough and Denies dyspnea Gastrointestinal Gastrointestinal: Reports as per HPI Genitourinary Genitourinary: Reports as per HPI, Denies abnormal vaginal bleeding, Denies hematuria, Denies dysuria, Reports flank pain, Denies urinary incontinence, Denies urinary urgency and Denies vaginal discharge Musculoskeletal Musculoskeletal: Reports as per HPI and Denies back pain Integumentary/Breasts Skin/Breast: Reports as per HPI and Denies rash Neurologic Neurologic: Reports as per HPI and Denies headache(s) Endocrine Endocrine: Denies fatigue [facility] Medical History Acute gastritis without mention of hemorrhage (Resolved) 10/31/09 Asthma (Resolved) 05/17/12 Balance problem (Resolved 01/02/15) Bronchiolectasis (Acute) Chronic cough (Chronic 11/20/16) Cortical senile cataract (Chronic 05/11/12) 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 (Resolved) 03/28/14 DM (diabetes mellitus) (Resolved) 05/11/12 A1C 6.6 03/16 Edema (Resolved) 06/29/06 left leg; neg u/s Esophageal reflux (Chronic) GERD/gastritis/HH Essential hypertension (Chronic 11/30/12) First degree hemorrhoids (Resolved) 01/02/15 Giardiasis (Resolved) Gout (Resolved) secondary to HCTZ Hyperlipidemia (Chronic) Hypokalemia (Resolved) secondary to HCTZ Hypothyroid (Chronic) Impaired renal function disorder (Resolved) 01/29/03 Incontinence in female (Chronic 10/19/17) Increased body mass index (Chronic) Irritable colon (Resolved) 01/29/97 w/lactose intolerance Left anterior knee pain (Resolved 10/01/15) Low back pain (Resolved 11/29/05) 1 cm. ant. and lat. mass ? disc/synovial cyst; marked compression of nerve root; 07/06-Post surgery MRI=scarring left; multi level DJD/ sm. extended disc L2-3; L4-5 Multinodular goiter (Chronic 10/22/16) Neck pain (Resolved) bilateral foraminal narrowing at C5-C6; C4-C-5 s/p back surgery Nuclear sclerosis (Resolved) 05/11/12 Organic sleep apnea, unspecified (Chronic) Osteoarthritis (Resolved) 05/30/06 right thumb Primary fibromyalgia syndrome (Resolved) Rash and nonspecific skin eruption (Resolved) 02/01/15 Reflux esophagitis (Chronic 03/20/15) Shoulder pain (Resolved) MRI 05/05 NEG ROTATOR CUFF TEAR. MILD BRUSITIS-?DEGENERATION OF LABRUM S/P OPERATION rotator cuff repair x 2 Smoker (Resolved) quit 1982 Strain of gastrocnemius muscle of left lower extremity (Resolved) 12/10/15 subsequent encounter Synovial cyst of left knee (Chronic 10/23/15) 4 by 3 cm Vaginal atrophy (Chronic 01/02/15) Wheezing (Chronic 02/01/15) Surgical History back surgery (~04/2006) EXCIS SPINAL CORD LESION Bladder Surgery laparoscopic Bladder suspension Cholecystectomy (~1994) 1994 Colonoscopy - MAC (~2003) Extraction of cataract (09/07/12) DR. GARCIA; RIGHT EYE/LEFT EYE H/O bilateral breast reduction surgery (Resolved) 01/09/14 difficult healing History of back surgery (Resolved) 04/30/06 excision of spinal cord lesion History of bilateral tubal ligation (Resolved) History of bladder suspension procedure (Resolved) laproscopic History of reduction mammoplasty (Chronic 02/07/14) Ligation of fallopian tube (~1976) Reduction mammoplasty (~2013) Rotator Cuff Repair x 2 S/P cataract extraction and insertion of intraocular lens (Resolved) 08/30/12 Dr. Garcia; OD S/P cholecystectomy (Resolved) 03/02/94 Family History Mother Heart disease Father Substance abuse Alcohol abuse Heart disease Neoplasm THROAT Asthma Sister Diabetes Alcohol abuse Heart disease Grandfather No problems noted. Grandfather No problems noted. Grandmother Diabetes Grandmother Heart disease Sister Diabetes Son Substance abuse Alcohol abuse Essential hypertension Asthma Daughter Depression Social History Smoking/Tobacco Use Status: Former Tobacco Use Alcohol Intake: current Alcohol Intake frequency: a few times a month Drug use: Never Substance use type: does not use Household members: other Details: 2 Pets and animals: No What is your relationship status?: Panel score (0-1 are the most socially isolated patients): 1 Duration: < 15 minutes/day Frequency: 3-4 times per week Subha/Jehovah'S Witness: c Agree to transfusion: No Seatbelt use: always Drive intox 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 Working smoke detector in home: No Carbon monox detector in home: No Firearms in home: Yes Firearms unloaded and locked: Yes Exam Const General: cooperative, healthy appearing, comfortable, no acute distress and well developed Nutritional Appearance: well nourished and obese Orientation: alert and awake [facility] Head: normal to inspection Mouth: moist mucous membranes Resp Effort & Inspection: normal respiratory effort, able to speak in complete sentences and no respiratory distress Auscultation: clear to auscultation bilaterally, no rales, no rhonchi and no wheezes Cardio Rate: regular rate Rhythm: regular rhythm Heart Sounds: S1 normal and S2 normal GI Inspection: non-distended, obesity, scar (well healed consistent with history), no visible herniation and no visible pulsation Palpation: soft, no hepatosplenomegaly, no aortic enlargement, not firm, no guarding, no hepatosplenomegaly, no hernias, no masses, no pulsatile masses, not rigid and tender in the LLQ and in the LUQ; obturator sign negative, psoas sign negative and with no rebound tenderness Percussion: normal to percussion Auscultation: hypoactive bowel sounds Back/Spine/Pelvis Back: no CVA tenderness Skin General skin exam: no rashes or lesions noted Trauma: no lacerations or abrasions Neuro General: alert and awake Cognition: normal cognition Speech: speech normal Gait: normal gait Psych Appearance: grossly normal and well kempt Mental Status: mental status grossly normal Speech and Movement: speech and movement normal Course Vital Signs Vital signs: Vital Signs Temperature 36.1 C L 12/09/18 08:28 Pulse 75 12/09/18 08:28 Respiratory Rate 20 12/09/18 08:28 Blood Pressure 168/89 H 12/09/18 08:28 Pulse Oximetry 96 12/09/18 08:28 Temperature 36.1 C L 12/09/18 08:28 Temperature Source Tympanic 12/09/18 08:28 Pulse 75 12/09/18 08:28 Respiratory Rate 20 12/09/18 08:28 Respiratory Effort Non-Labored 12/09/18 08:32 Blood Pressure 168/89 H 12/09/18 08:28 Pulse Oximetry 96 12/09/18 08:28 Oxygen Delivery Method Room Air 12/09/18 08:28 Oxygen Flow Rate 0 12/09/18 08:28 Pain Level 10 12/09/18 08:32
[2018-12-09] MEDS: Normal Saline 1,000 ML 125 ML IV (09:10)
[2018-12-09] MEDS: Normal Saline Flush 10 ML SYR IVP (09:10)
[2018-12-09 09:22] LABS: Abs Immature Grans 0.02 k/cumm (0.0-0.09); Absolute Basophil Count 0.02 k/cumm (0.0-0.2); Absolute Eosinophil Count 0.27 k/cumm (0.0-0.7); Absolute Lymphocyte Count 1.34 k/cumm (1.2-3.4); Absolute Monocyte Count 0.69 k/cumm (0.11-0.7); Absolute Neutrophil Count 7.16 k/cumm (1.2-6.7); Basophils % 0.2; Eosinophils % 2.8; HCT 41.6 % (36.0-46.0); HGB 13.6 g/dL (12.0-15.5); Immature Grans % 0.2; Lymphocytes % 14.1; Mean Corp. HGB Concentration 32.7 g/dL (32.0-36.0); Mean Corpuscular Hemoglobin 28.6 pg (27.0-33.0); Mean Corpuscular Volume 87.6 fL (80-95); Mean Platelet Volume 10.5 fL (8.0-11.0); Monocytes % 7.3; Neutrophils % 75.4; Platelet Count 275 x1000/uL (130-400); RBC 4.75 m/cumm (4.00-5.20); RBC Distribution Width 14.9 % (11.7-14.6)
[2018-12-09] MEDS: Ondansetron 4 MG/2 ML VIAL IVP (09:22)
[2018-12-09] MEDS: MORPHine 10 MG/ML VIAL 2 MG IVP (09:23)
[2018-12-09 09:42] LABS: ALT 24 U/L (14-59); AST 22 U/L (15-37); Albumin 3.4 g/dL (3.4-5.0); Alkaline Phosphatase 130 U/L (46-116); BUN 15 mg/dL (7-18); Bilirubin, Total 0.4 mg/dL (0.2-1.0); CREATININE 1.06 mg/dL (0.55-1.02); Calcium 9.1 mg/dL (8.5-10.1); Chloride 104 mmol/L (98-107); Estimated GFR 50.96 (mL/min/1.73m2); Glucose 116 mg/dL (70-100); Lipase 137 U/L (73-393); Potassium 3.8 mmol/L (3.5-5.1); Sodium 140 mmol/L (136-145); Total Protein 7.2 g/dL (6.4-8.2)
[2018-12-09] MEDS: HYDROmorphone 2 MG/ML VIAL 1 MG IVP (10:30)
--- NOTE | 2018-12-09 10:46 | DI.CT_ITS ---
EXAM: CT ABDOMEN PELVIS W CLINICAL HISTORY: LUQ and LLQ pain. TECHNIQUE: COMPARISON: ABD PELVIS WITH CONTRAST from 07/17/2008 FINDINGS: CT examination of the pelvis was performed bolus infusion of 100 cc of Omnipaque 350 and ingestion di lute barium. There is a large retrocardiac hiatus hernia containing significant portion the stomach. Images obtained through the lung bases show areas of predominantly linear scarring or atelectasis. There are marked degenerative changes of lumbar spine. Gallbladder has been surgically removed. Co mmon bile duct mildly dilated at about 15 millimeters. No definite stone but the possibility of dist al obstruction is not excluded and correlation with MRCP is suggested. Pancreas appears intact as does the spleen. No focal hepatic abnormality seen. Abdominal aorta is o f normal diameter and no major vascular abnormality is seen. Adrenals and kidneys are unremarkable w ith the tiny bilateral renal cortical cysts noted. No gross abdominal or pelvic adenopathy seen. No significant abdominal wall hernia seen. Appendix is normal. No evidence of diverticulitis or bowel obstruction. There is a predominantly water attenuation mass of the pelvis 0 abdominal region measuring up to abou t 18 cm in diameter. This contains thick septae and nodular wall excrescences. This may arise eithe r from right or left ovary. Uterus grossly unremarkable. No free fluid identified. IMPRESSION: Large pelvic/abdominal mass presumably of ovarian origin, the findings as described are highly sugges tive of ovarian carcinoma. Biopsy suggested. Question mild extrahepatic biliary obstruction, correlation with MRCP should be considered.
[2018-12-09 11:10] LABS: Bilirubin Negative (Negative); Blood Trace-intact (Negative); Clarity Clear (Clear); Glucose Negative (Negative); Ketones Negative (Negative); Leukocyte Esterase Negative (Negative); Nitrite Negative (Negative); Urobilinogen 0.2 EU/dL (Up TO 0.2)
[2018-12-09 11:30] LABS: Bacteria Negative HPF (Negative); C & S Indicated? No; Casts Negative LPF (Negative); Crystals Negative HPF (Negative); Epithelial Cells Few HPF (Negative); Mucus Negative (Negative); WBC 0-2 HPF (0-5)
--- NOTE | 2018-12-09 11:34 | DI.US_ITS ---
EXAM: US PELVIS TRANSVAGINAL CLINICAL HISTORY: 18cm right ovarian cyst. TECHNIQUE: Ultrasound performed using standard protocol. COMPARISON: CAROTID ULTRASOUND from 10/20/2017 FINDINGS: Pelvic ultrasound was performed transabdominally and transvaginally. There is a large pelvic abdomin al mass as identified on CT. Uterus is retroflexed and unremarkable in appearance with 1-2 millimete r thick homogeneous endometrial stripe. The ovaries are not specifically visualized. The mass measu res 17 cm in greatest diameter and is for dominantly cyst cystic with some thickened septations and t hickened wall as identified CT. No gross abnormality identified on Doppler evaluation. IMPRESSION: Large probable abdominal mass, presumably ovarian origin, but not specifically identified as originat ing from right or left ovary. Findings highly suspicious for ovarian carcinoma in this age group.
--- NOTE | 2018-12-09 12:20 | NUR.NOTE ---
Nursing Note: pt returned from us, vitals obtained, denies any needs at this time. continue to monitor.
[2018-12-09 12:22] VITALS: BP 159/86; PULSE 72; RESP 16; O2SAT 98
== END 2018-12-09 13:27 | disposition home or self-care (01) ==
PROVIDERS: Emergency Provider Physician Assistant; PCP Family Medicine
DX: N83.201 Unspecified ovarian cyst, right side (principal); R10.9 Unspecified abdominal pain; E11.22 Type 2 diabetes mellitus with diabetic chronic kidney disease; I10 Essential (primary) hypertension
CPT/HCPCS: 36415; 80053; 83690; 96361; 96374; 96375; 99285; 74177; 76830; 76856; 81003; 81015; 85025; 99284; J2270; J2405

== ENCOUNTER 2019-01-26 15:23 | Emergency (ER) | payer MEDICARE, OTHER, SELFPAY ==
[2019-01-26] VITALS (21 sets, daily range): BP systolic 125–175; BP diastolic 50–80; PULSE 76–82; RESP 16; TEMP 37; O2SAT 90–99
[2019-01-26 16:00] LABS: Abs Immature Grans 0.01 k/cumm (0.0-0.09); Absolute Basophil Count 0.03 k/cumm (0.0-0.2); Absolute Eosinophil Count 0.89 k/cumm (0.0-0.7); Absolute Lymphocyte Count 1.57 k/cumm (1.2-3.4); Absolute Monocyte Count 0.89 k/cumm (0.11-0.7); Absolute Neutrophil Count 6.77 k/cumm (1.2-6.7); Basophils % 0.3; Eosinophils % 8.8; HCT 40.4 % (36.0-46.0); HGB 12.8 g/dL (12.0-15.5); Immature Grans % 0.1; Lymphocytes % 15.5; Mean Corp. HGB Concentration 31.7 g/dL (32.0-36.0); Mean Corpuscular Hemoglobin 27.6 pg (27.0-33.0); Mean Corpuscular Volume 87.3 fL (80-95); Mean Platelet Volume 10.9 fL (8.0-11.0); Monocytes % 8.8; Neutrophils % 66.5; Platelet Count 321 x1000/uL (130-400); RBC 4.63 m/cumm (4.00-5.20); RBC Distribution Width 15.9 % (11.7-14.6); White Blood Cell Count 10.16 k/cumm (4.4-10.8)
[2019-01-26 16:08] LABS: Prothrombin Time 10.5 sec (9.3-11.0)
--- NOTE | 2019-01-26 16:08 | ED.GENADUL_ITS ---
Discharge Plan Disposition Patient Disposition: [facility] Condition: Serious Discharge Details Chief Complaint: Abd Prob Clinical Impression: Dehiscence of incision Primary Care Provider: Khalida Cole ED Provider: Mary Fritz Home Meds and New Rx's Prescriptions: No Action docusate sodium 100 mg capsule 100 mg PO DAILY RF: 0 ibuprofen 600 mg tablet 600 mg PO Q8H PRNRF: 0 Dexilant 60 mg capsule,biphase delayed releas 60 mg PO DAILY Qty: 90 RF: 5 Flonase Sensimist 27.5 mcg/actuation spray,suspension 1 spray NS BID Qty: 47.4 RF: 5 albuterol sulfate [Proventil HFA] 90 mcg/actuation HFA aerosol inhaler 2 puff IH Q6H PRN (Reason: shortness of breath or wheezing) Qty: 18 RF: 4 meloxicam 15 mg tablet 15 mg PO DAILY Qty: 90 RF: 12 levothyroxine 25 mcg tablet 25 mcg PO DAILY RF: 0 Shingrix Adjuvant Component-PF suspension 1 ml IM ONCE Qty: 0.5 RF: 1 L-Lysine 500 MG capsule 500 mg PO DAILY RF: 0 cholecalciferol (vitamin D3) 1,000 UNIT capsule 2 cap PO DAILY RF: 0 calcium-vitamin D3-vitamin K [Viactiv] 1 EACH tablet,chewable 1 ea PO DAILY RF: 0 (DME) EasiVent Mask Large 1 EACH device 1 ea Miscellaneous DIRECTED RF: 0 CENTRUM TABLET 1 EACH tablet 1 tab PO DAILY RF: 0 magnesium oxide 400 MG tablet 400 mg PO BID Qty: 180 RF: 12 triamcinolone acetonide 80 GM ointment 5 gm Topical BID PRNQty: 80 RF: 2 acyclovir 15 GM ointment 1 gm Topical TID Qty: 1 RF: 11 duloxetine [Cymbalta] 60 mg capsule,delayed release(DR/EC) 60 mg PO DAILY Qty: 90 RF: 12 duloxetine [Cymbalta] 30 mg capsule,delayed release(DR/EC) 30 mg PO DAILY Qty: 90 RF: 4 fluticasone propion-salmeterol [Advair Diskus] 500-50 mcg/dose blister with device 1 inh Inhalation BID Qty: 3 RF: 11 metoprolol succinate 100 mg tablet extended release 24 hr 100 mg PO DAILY Qty: 90 RF: 4 Spiriva with HandiHaler 18 mcg capsule, w/inhalation device 1 cap Inhalation DAILY Qty: 90 RF: 11 simvastatin [Zocor] 20 mg tablet 20 mg PO HS Qty: 90 RF: 4 losartan 25 mg tablet 25 mg PO DAILY Qty: 90 RF: 12 hydroxyzine pamoate [Vistaril] 25 mg capsule 25 mg PO TID PRN (Reason: nausea and vomiting) Qty: 270 RF: 0 metoclopramide HCl 5 mg tablet 5 mg PO BID Qty: 180 RF: 4 Myrbetriq 25 mg tablet extended release 24 hr 25 mg PO DAILY Qty: 90 RF: 11 cetirizine 10 mg Tablet,Chewable 1 tab PO BID RF: 0 ipratropium-albuterol 0.5 mg-3 mg(2.5 mg base)/3 mL solution for nebulization 3 ml IH Q6H Qty: 90 RF: 0 hydrocodone-acetaminophen [Broct[place]] 5-325 mg tablet 1 tab PO Q6H PRN (Reason: pain) Qty: 7 RF: 0 ondansetron 4 mg tablet,disintegrating 4 mg PO Q6H PRN (Reason: nausea and vomiting) Qty: 10 RF: 0 Medical Decision Making Patient is a pleasant 73-year-old female presents today with chief complaint of dehisced wound to her abdomen. Patient underwent a total hysterectomy on 12/28/2018. Uneventful postoperative course. Reports her abdomen feels improved. Preoperatively. However, she notes some blood in her underwear today and has been related to wound noting dehiscence. On exam, patient has an obese abdomen with a 2 inch dehiscence of her surgical incision at the end aspect under her pannus with bowel protruding. Bowel is pink and appears to be healthy. Abdominal exam is otherwise benign. Patient denies any pain. She is afebrile. Does endorse some nausea vomiting this morning but is not actively nauseated. Is a food or fluid intake since this morning. Has been n.p.o. since being here. Consulted with Dr. Chen, patient surgeon [facility], who advised transfer of the patient from ED to ED for operative intervention of her dehisced wound. Is requested IV Zosyn given. Discussed this plan with the patient who is in agreement. All other questions and concerns were addressed. Labs reviewed. No leukocytosis. H&H is normal. Normal PT, PTT. Patient has a slight anion gap of 12.9. Creatinine is 1.2. Patient typically is around 1.04 range. Magnesium is low 1.3. Alk phos is elevated 128 over the patient. Patient transferred via EMS to [facility] for definitive care of her wound dehiscence. HPI General Mode of arrival: ambulatory . Date/Time Provider Initiated Documentation: 01/26/19 15:30 . Limitations to Documentation: no limitations . Information obtained by: patient, family () and RN notes reviewed . HPI Narrative: Patient is a 73-year-old female, accompanied by her , with chief complaint of dehiscence of abdominal wound. She reports that she underwent a total hysterectomy for a mass in her ovary on 12/28/2017. Had a uneventful postoperative. Initially. Was seen by her surgeon at [facility], Dr. Chen, 2 days ago at which time she was begun on Keflex for erythema and irritation to the inferior most aspect of the incision. Secondary to the patient's body habitus, she is not been able to evaluate this area well but has checked it today with a mirror. States today she used the restroom and noted a small drop of blood on her underwear. Denies abdominal pain. Had nausea and vomited x 1 this morning. This occurred after taking her Keflex on an empty stomach. She then evaluated this further this afternoon, noted protruding bowel prompting them to come to the ED. Denies abdominal pain. Last bowel movement was Thursday. No change in urinary habits. Denies any fevers or chills. Related Data Home Medications Medication Instructions Recorded Confirmed Centrum Tablet 1 tab PO DAILY 05/14/12 01/26/19 EasiVent Mask Large ea 05/14/12 01/26/19 L-Lysine 500 mg PO DAILY 05/14/12 01/26/19 calcium-vitamin D3-vitamin K 1 ea PO DAILY tab.chew 05/14/12 01/26/19 [Viactiv] cholecalciferol (vitamin D3) 2 cap PO DAILY 05/14/12 01/26/19 magnesium oxide 400 mg PO BID #180 tab 06/06/13 01/26/19 triamcinolone acetonide 5 gm TOPICAL BID PRN #80 ml 06/02/16 01/26/19 acyclovir 1 gm TOPICAL TID #1 tube 08/01/17 01/26/19 cetirizine 1 tab PO BID 12/26/17 01/26/19 ipratropium-albuterol 3 ml IH Q6H #90 ml 12/26/17 01/26/19 dexlansoprazole 60 mg 60 mg PO DAILY #90 cap 01/26/18 01/26/19 capsule,biphase delayed release fluticasone furoate 27.5 1 spray NS BID #47.4 ml 01/26/18 01/26/19 mcg/actuation nasal spray,suspension duloxetine 30 mg capsule,delayed 30 mg PO DAILY #90 cap 05/04/18 01/26/19 release duloxetine 60 mg capsule,delayed 60 mg PO DAILY #90 tab-cap 05/04/18 01/26/19 release fluticasone 500 mcg-salmeterol 50 1 inh INHALATION BID #3 each 05/04/18 01/26/19 mcg/dose blistr powdr for inhalation metoprolol succinate 100 mg 100 mg PO DAILY #90 tab 05/04/18 01/26/19 tablet,extended release 24 hr tiotropium bromide 18 mcg capsule 1 cap INHALATION DAILY #90 inh 05/04/18 01/26/19 with inhalation device simvastatin 20 mg tablet 20 mg PO HS #90 tab 07/05/18 01/26/19 losartan 25 mg tablet 25 mg PO DAILY #90 tab-cap 08/23/18 01/26/19 adjuvant AS01B (PF)vial 1 of 2 1 ml IM ONCE #0.5 ml 08/26/18 01/11/19 levothyroxine 25 mcg tablet 25 mcg PO DAILY tab-cap 08/26/18 01/26/19 hydroxyzine pamoate 25 mg capsule 25 mg PO TID PRN #270 cap 09/22/18 01/26/19 metoclopramide HCl 5 mg tablet 5 mg PO BID #180 tab 09/26/18 01/26/19 albuterol sulfate 90 mcg/actuation 2 puff IH Q6H PRN #18 gm 10/26/18 01/26/19 aerosol inhaler meloxicam 15 mg tablet 15 mg PO DAILY #90 tab-cap 10/26/18 01/26/19 hydrocodone-acetaminophen [Broct[place]] 1 tab PO Q6H PRN #7 tab 12/09/18 01/26/19 ondansetron 4 mg PO Q6H PRN #10 tab 12/09/18 01/26/19 docusate sodium 100 mg capsule 100 mg PO DAILY 01/11/19 01/26/19 ibuprofen 600 mg tablet 600 mg PO Q8H PRN 01/11/19 01/26/19 mirabegron 25 mg tablet,extended 25 mg PO DAILY #90 tab-cap 01/13/19 01/26/19 release 24 hr Previous Rx's Medication Instructions Recorded acyclovir 1 gm TOPICAL TID #1 tube 08/01/17 ipratropium-albuterol 3 ml IH Q6H #90 ml 12/26/17 dexlansoprazole 60 mg 60 mg PO DAILY #90 cap 01/26/18 capsule,biphase delayed release fluticasone furoate 27.5 1 spray NS BID #47.4 ml 01/26/18 mcg/actuation nasal spray,suspension duloxetine 30 mg capsule,delayed 30 mg PO DAILY #90 cap 05/04/18 release duloxetine 60 mg capsule,delayed 60 mg PO DAILY #90 tab-cap 05/04/18 release fluticasone 500 mcg-salmeterol 50 1 inh INHALATION BID #3 each 05/04/18 mcg/dose blistr powdr for inhalation metoprolol succinate 100 mg 100 mg PO DAILY #90 tab 05/04/18 tablet,extended release 24 hr tiotropium bromide 18 mcg capsule 1 cap INHALATION DAILY #90 inh 05/04/18 with inhalation device simvastatin 20 mg tablet 20 mg PO HS #90 tab 07/05/18 losartan 25 mg tablet 25 mg PO DAILY #90 tab-cap 08/23/18 adjuvant AS01B (PF)vial 1 of 2 1 ml IM ONCE #0.5 ml 08/26/18 hydroxyzine pamoate 25 mg capsule 25 mg PO TID PRN #270 cap 09/22/18 metoclopramide HCl 5 mg tablet 5 mg PO BID #180 tab 09/26/18 albuterol sulfate 90 mcg/actuation 2 puff IH Q6H PRN #18 gm 10/26/18 aerosol inhaler meloxicam 15 mg tablet 15 mg PO DAILY #90 tab-cap 10/26/18 hydrocodone-acetaminophen [[place]ct[place]] 1 tab PO Q6H PRN #7 tab 12/09/18 ondansetron 4 mg PO Q6H PRN #10 tab 12/09/18 mirabegron 25 mg tablet,extended 25 mg PO DAILY #90 tab-cap 01/13/19 release 24 hr Allergies Allergy/AdvReac Type Severity Reaction Status Date / Time enalapril Allergy Unknown SKIN RASH Verified 01/26/19 16:08 hydrochlorothiazide Allergy Unknown Verified 01/26/19 16:08 pneumococcal vaccine Allergy Unknown Verified 01/26/19 16:08 nitrofurantoin Allergy SKIN RASH Verified 01/26/19 16:08 Sulfa (Sulfonamide Allergy RASH Verified 01/26/19 16:08 Antibiotics) oxycodone AdvReac Intermediate VOMITING Verified 01/26/19 16:08 General Stated Complaint: Abd Prob CARLOS: 3 Review of Systems Constitutional Constitutional: Reports as per HPI, Denies chills, Denies fatigue, Denies fever(s) and Denies headache(s) ENT Ears, Nose, Mouth, and Throat: Denies headache(s) Cardiovascular Cardiovascular: Reports as per HPI, Denies chest pain and Denies dyspnea Respiratory Respiratory: Reports as per HPI, Denies cough and Denies dyspnea Gastrointestinal Gastrointestinal: Reports as per HPI Musculoskeletal Musculoskeletal: Reports as per HPI and Denies back pain Integumentary/Breasts Skin/Breast: Reports as per HPI and Denies rash Neurologic Neurologic: Reports as per HPI and Denies headache(s) Endocrine Endocrine: Denies fatigue PFSH Family History Mother Heart disease Father Substance abuse Alcohol abuse Heart disease Neoplasm THROAT Asthma Sister Diabetes Alcohol abuse Heart disease Grandfather No problems noted. Grandfather No problems noted. Grandmother Diabetes Grandmother Heart disease Sister Diabetes Son Substance abuse Alcohol abuse Essential hypertension Asthma Daughter Depression Social History Smoking/Tobacco Use Status: Former Tobacco Use Alcohol Intake: current Alcohol Intake frequency: a few times a month Drug use: Never Substance use type: does not use Household members: other Details: 2 Pets and animals: No What is your relationship status?: Panel score (0-1 are the most socially isolated patients): 1 Duration: < 15 minutes/day Frequency: 3-4 times per week Subha/Adventist: c Agree to transfusion: No Seatbelt use: always Drive intox or ride w/intox fuel truck driver: No Working smoke detector in home: No Carbon monox detector in home: No Firearms in home: Yes Firearms unloaded and locked: Yes Do you feel safe at home: Yes Do you feel safe in your relationship?: Yes Exam Const General: cooperative, healthy appearing, comfortable, no acute distress and well developed Nutritional Appearance: well nourished and overweight Orientation: alert and awake [facility] Head: normal to inspection Mouth: moist mucous membranes Resp Effort & Inspection: normal respiratory effort, able to speak in complete sentences and no respiratory distress Auscultation: clear to auscultation bilaterally, no rales, no rhonchi and no wheezes Cardio Rate: regular rate Rhythm: regular rhythm Heart Sounds: S1 normal and S2 normal GI Inspection: incision (Patient has a midline incision from umbilicus to pelvis. ) and other (Inferior 2 inches of incision is dehisced with bowel protruding) Palpation: soft, no hepatosplenomegaly, not firm, no guarding, not rigid and nontender Auscultation: normal bowel sounds Skin General skin exam: no rashes or lesions noted Trauma: no lacerations or abrasions Neuro General: alert and awake Cognition: normal cognition Speech: speech normal Gait: normal gait Psych Appearance: grossly normal and well kempt Mental Status: mental status grossly normal Speech and Movement: speech and movement normal Course Vital Signs Vital signs: Vital Signs Temperature 37.0 C 01/26/19 15:26 Pulse 76 01/26/19 15:26 Respiratory Rate 16 01/26/19 15:26 Blood Pressure 175/80 H 01/26/19 15:26 Pulse Oximetry 99 01/26/19 15:26 Temperature 37.0 C 01/26/19 15:26 Temperature Source Temporal Artery Scan 01/26/19 15:26 Pulse 76 01/26/19 15:26 Respiratory Rate 16 01/26/19 15:26 Respiratory Effort Non-Labored 01/26/19 15:29 Blood Pressure 175/80 H 01/26/19 15:26 Blood Pressure Position Sitting 01/26/19 15:26 Pulse Oximetry 99 01/26/19 15:26 Oxygen Delivery Method Room Air 01/26/19 15:26 Oxygen Flow Rate 0 01/26/19 15:26 Pain Level 0 01/26/19 15:26 Lab/Test Results Lab/Test Results: Laboratory Tests Range/Units 01/26/19 15:40 WBC (4.4-10.8) k/cumm 10.16 RBC (4.00-5.20) m/cumm 4.63 Hgb (12.0-15.5) g/dL 12.8 Hct (36.0-46.0) % 40.4 MCV (80-95) fL 87.3 MCH (27.0-33.0) pg 27.6 MCHC (32.0-36.0) g/dL 31.7 L RDW (11.7-14.6) % 15.9 H Plt Count (130-400) x1000/uL 321 MPV (8.0-11.0) fL 10.9 Immature Gran % 0.1 Neutrophils % 66.5 Lymphocytes % 15.5 Monocytes % 8.8 Eosinophils % 8.8 Basophils % 0.3 Absolute Neutrophils (1.2-6.7) k/cumm 6.77 H Absolute Lymphocytes (1.2-3.4) k/cumm 1.57 Absolute Monocytes (0.11-0.7) k/cumm 0.89 H Absolute Eosinophils (0.0-0.7) k/cumm 0.89 H Absolute Basophils (0.0-0.2) k/cumm 0.03
[2019-01-26 16:16] LABS: ALT 22 U/L (14-59); AST 17 U/L (15-37); Albumin 3.3 g/dL (3.4-5.0); Alkaline Phosphatase 128 U/L (46-116); Anion Gap 12.9 mmol/L (3-11); BUN 17 mg/dL (7-18); Bilirubin, Total 0.3 mg/dL (0.2-1.0); CO2 23.1 mmol/L (21.0-32.0); CREATININE 1.28 mg/dL (0.55-1.02); Chloride 107 mmol/L (98-107); Estimated GFR 40.99 (mL/min/1.73m2); Glucose 103 mg/dL (74-106); Lipase 123 U/L (73-393); Magnesium 1.3 mg/dL (1.8-2.4); Potassium 3.8 mmol/L (3.5-5.1); Sodium 143 mmol/L (136-145); Total Protein 7.3 g/dL (6.4-8.2)
[2019-01-26] MEDS: PIPERACILLIN/TAZO 3.375 GM in Normal Saline 50 ML IVPB (16:48)
[2019-01-26] MEDS: Lactated Ringers 1,000 ML 150 ML IV (17:10)
== END 2019-01-26 19:30 | disposition short-term general hospital (02) ==
PROVIDERS: Emergency Medicine; Emergency Provider Physician Assistant; PCP Family Medicine
DX: T81.32XA Disruption of internal operation (surgical) wound, not elsewhere classified, initial encounter (principal); Z98.890 Other specified postprocedural states
CPT/HCPCS: 36415; 80053; 83690; 96365; 99284; 83735; 85025; 85610; 85730; J2543

== ENCOUNTER → 2019-06-27 10:40 | Outpatient (BNVA) | payer MEDICARE, OTHER, SELFPAY | PROVIDERS: PCP Family Medicine; Referring Provider Family Medicine; Visit Provider Student in an Organized Health Care Education/Training Program | DX: M25.512 Pain in left shoulder (principal); G89.29 Other chronic pain; E11.40 Type 2 diabetes mellitus with diabetic neuropathy, unspecified; I10 Essential (primary) hypertension | CPT/HCPCS: 99203; 99214 ==

== ENCOUNTER 2019-06-28 00:18 | Outpatient (CLI) | payer MEDICARE, OTHER, SELFPAY ==
--- NOTE | 2019-06-28 07:41 | DI.MRI_ITS ---
EXAM: MR UPPER JOINT LT WO CLINICAL HISTORY: CHRONIC LT SHOULDER PAIN, M25.512, G89.29. TECHNIQUE: Multiplanar multisequence MRI was performed. MR of the left shoulder was performed accor ding to the usual protocol. COMPARISON: No exams were available for comparison FINDINGS: Bones and cartilage: There is marked loss of the articular cartilage of the glenohumeral joint. Ther e are very prominent hypertrophic marginal osteophytes of the glenoid and the humerus. There is arvind ed hypertrophic degenerative change of the acromioclavicular joint. The humeral head abuts the inferior surface of the acromion. Rotator cuff: There is marked loss of muscle mass of the supraspinatus muscle, with the remaining mus kennedi belly occupying less than half of the volume expected. Similarly, there is loss of muscle volume of the superior aspects of both infraspinatus and supraspinatus. There is also increased fat signal in superior portions of infraspinatus and to a lesser degree subscapularis. Supraspinatus shows min imally increased fat signal. There is a massive rotator cuff tear, which involves the entire supraspinatus tendon as well as the m ajority of the infraspinatus and subscapularis tendons. There is retraction of the supraspinatus by at least 4 cm. Significant retraction of subscapularis and infraspinatus tear is noted as well. Biceps tendon is nonvisualized and may be torn. IMPRESSION: Massive retracted rotator cuff tear involving supraspinatus and major portions of infraspinatus and s ubscapularis, retraction by 4 cm. Severe degenerative changes of acromioclavicular and glenohumeral joints. Significant loss of muscle volume of supraspinatus, infraspinatus, and subscapularis; although there is less than 50 percent fatty replacement of muscle, the degree of muscle wasting would be the equiva lent of a Goutallier classification grade 3. DATA REPOSITORY:
== END 2019-06-28 00:38 ==
PROVIDERS: PCP Family Medicine; Visit Provider Student in an Organized Health Care Education/Training Program
DX: M25.512 Pain in left shoulder (principal); G89.29 Other chronic pain; M75.122 Complete rotator cuff tear or rupture of left shoulder, not specified as traumatic; M19.012 Primary osteoarthritis, left shoulder
CPT/HCPCS: 73221

== ENCOUNTER → 2019-07-19 10:28 | Outpatient (BNVA) | payer MEDICARE, OTHER, SELFPAY | PROVIDERS: PCP Family Medicine; Referring Provider Family Medicine; Visit Provider Student in an Organized Health Care Education/Training Program | DX: M75.102 Unspecified rotator cuff tear or rupture of left shoulder, not specified as traumatic (principal); M75.52 Bursitis of left shoulder; M75.42 Impingement syndrome of left shoulder; S46.112D Strain of muscle, fascia and tendon of long head of biceps, left arm, subsequent encounter; X58.XXXD Exposure to other specified factors, subsequent encounter | CPT/HCPCS: 99204; 99215 ==

== ENCOUNTER 2019-08-01 02:03 | Outpatient (CLI) | payer MEDICARE, OTHER, SELFPAY ==
[2019-08-01 09:38] LABS: HCT 34.9 % (36.0-46.0); HGB 10.7 g/dL (12.0-15.5); Mean Corp. HGB Concentration 30.7 g/dL (32.0-36.0); Mean Corpuscular Hemoglobin 23.9 pg (27.0-33.0); Mean Corpuscular Volume 78.1 fL (80-95); Platelet Count 358 x1000/uL (130-400); RBC 4.47 m/cumm (4.00-5.20); RBC Distribution Width 18.1 % (11.7-14.6); White Blood Cell Count 8.74 k/cumm (4.4-10.8)
[2019-08-01 09:56] LABS: COMMENT (LAB VIEW ONLY) 197.31 mg/dL; Microalb ug/mg Crea 24.6 ug/mg Cr
[2019-08-01 10:00] LABS: ALT 27 U/L (14-59); AST 18 U/L (15-37); Albumin 3.1 g/dL (3.4-5.0); Alkaline Phosphatase 147 U/L (46-116); Anion Gap 9.7 mmol/L (3-11); BUN 16 mg/dL (7-18); Bilirubin, Total 0.3 mg/dL (0.2-1.0); CO2 26.3 mmol/L (21.0-32.0); CREATININE 1.14 mg/dL (0.55-1.02); Calculated LDL 85 mg/dL (<100); Chloride 102 mmol/L (98-107); Cholesterol 168 mg/dL (<200); Estimated GFR 46.72 (mL/min/1.73m2); Glucose 101 mg/dL (74-106); HDL Cholesterol 47 mg/dL (40-60); Potassium 3.8 mmol/L (3.5-5.1); Sodium 138 mmol/L (136-145); TSH (W/Ref FT4) 2.72 uIU/mL (0.36-3.74); Total Protein 7.1 g/dL (6.4-8.2); Triglyceride 184 mg/dL (<150)
[2019-08-01 10:02] LABS: Hemoglobin A1C 6.1 % (3.8-5.6)
--- NOTE | 2019-08-01 10:40 | DI.CT_ITS ---
EXAM: CT ABDOMEN PELVIS W CLINICAL HISTORY: ABD MASS,ABD WALL ABSCESS,L02.211 TECHNIQUE COMPARISON: CT CT ABDOMEN PELVIS W from 12/09/2018 FINDINGS: CT examination of the abdomen and pelvis was performed with a bolus infusion of 100 cc of Omnipaque 3 50 and ingestion of dilute barium. There is a large bilobed ventral hernia with widely patent appearance, multiple loops of small and la rge bowel are herniated with no evidence of obstruction or strangulation. There is an area of wall thickening with apparent small fluid collection associated with the superior lobe of the ventral hernia, this finding is associated with the right inferior aspect of the hernia, the fluid collection measures roughly 4 by 1 x 2 cm in diameter. There is reportedly a question of an abdominal wall abscess and this finding is consistent with an abscess. No intraperitoneal abnorma lity seen. No additional fluid collection identified. Images obtained through the lung bases are unremarkable. There is a large hiatal hernia containing t he gastric fundus. The liver and spleen appear normal. Pancreas appears normal. Mild biliary ductal dilatation, unchan ged from prior study of November 2018, likely post surgical in a patient with prior cholecystectomy. Adrenals and kidneys are unremarkable except for tiny presumed bilateral renal cysts. A previously noted large pelvo- abdominal mass seen on prior study of November 2018 is no longer visib le and has presumably been resected. No gross pelvic adenopathy seen. No retroperitoneal adenopathy seen. Appendix is normal. No evidence of bowel obstruction or other focal bowel pathology. IMPRESSION: Large bilobed ventral hernia, there may be a small focal abscess, 4 x 2 x 1 cm, associated with the r ight inferior portion of the wall of the superior lobe of the hernia. No other significant acute fin dings.
[2019-08-01] MEDS: Normal Saline - Diluent 50 ML VIAL IV (10:43)
[2019-08-01] MEDS: Omnipaque 350 MG/ML 100 ML BTL IJ (10:43)
[2019-08-01] MEDS: Omnipaque 350 MG/ML 50 ML BTL IJ ×2 (10:45→11:16)
[2019-08-01] MEDS: Normal Saline Flush 10 ML SYR IVP (10:46)
[2019-08-01] MEDS: Breeza Beverage 473 ML BTL PO ×2 (11:15→11:17)
== END 2019-08-01 02:23 ==
PROVIDERS: PCP Family Medicine; Visit Provider Family Medicine
DX: K43.9 Ventral hernia without obstruction or gangrene (principal); L02.211 Cutaneous abscess of abdominal wall; E11.21 Type 2 diabetes mellitus with diabetic nephropathy; I10 Essential (primary) hypertension; E03.9 Hypothyroidism, unspecified; F32.9 Major depressive disorder, single episode, unspecified; J44.9 Chronic obstructive pulmonary disease, unspecified
CPT/HCPCS: 36415; 80053; 80061; 85027; 74177; 82043; 82570; 83036; 84443; J3490; Q9967

== ENCOUNTER → 2019-08-03 13:57 | Outpatient (BNVA) | payer MEDICARE, OTHER, SELFPAY | PROVIDERS: PCP Family Medicine; Referring Provider Family Medicine; Visit Provider Surgery | DX: K43.9 Ventral hernia without obstruction or gangrene (principal); T81.41XA Infection following a procedure, superficial incisional surgical site, initial encounter; J44.9 Chronic obstructive pulmonary disease, unspecified; T81.30XA Disruption of wound, unspecified, initial encounter; E11.21 Type 2 diabetes mellitus with diabetic nephropathy; I10 Essential (primary) hypertension | CPT/HCPCS: 99203; 99214 ==

== ENCOUNTER 2019-09-05 00:49 | Outpatient (CLI) | payer MEDICARE, OTHER, SELFPAY ==
--- NOTE | 2019-09-05 07:30 | DI.MAMMO_ITS ---
EXAM: MAMMO SCREENING CLINICAL HISTORY: screening, Z12.39 TECHNIQUE: Mammograms were interpreted according to the usual protocol including computer analysis w [employer] CAD system, tomosynthesis and C-view imaging. COMPARISON: 2010 through 2018 FINDINGS: The breasts are composed of mainly fatty density , Breast Density category A. Patient is again noted be status post bilateral breast reduction. There are peripherally calcified o il cysts or fat necrosis bilaterally. No suspicious masses or suspicious microcalcifications are see n. No skin thickening or abnormal axillary lymph nodes are seen. There has been no significant change from prior exams. IMPRESSION: BI-RADS Cat 2 - Benign Findings. Breast Density Category A, fatty density.
== END 2019-09-05 01:09 ==
PROVIDERS: PCP Family Medicine; Visit Provider Family Medicine
DX: Z12.31 Encounter for screening mammogram for malignant neoplasm of breast (principal); N64.59 Other signs and symptoms in breast; Z98.890 Other specified postprocedural states
CPT/HCPCS: 77063; 77067

== ENCOUNTER 2019-09-13 11:03 | Outpatient (CLI) | payer MEDICARE, OTHER, SELFPAY ==
--- NOTE | 2019-09-13 10:30 | DI.RAD_ITS ---
EXAM: XR SHOULDER LT COMPLETE 2+V CLINICAL HISTORY: fu left shoulder TECHNIQUE: COMPARISON: CR XR shoulder LT complete 2+V from 10/29/2018 FINDINGS: Two views were obtained. There is narrowing of the cartilaginous joint space of the glenohumeral mark nt. There are prominent marginal osteophytes of the acromioclavicular joint and the glenohumeral mark nt. There is probable subchondral cyst formation of the humeral head most marked at the greater tube rosity. No other significant bony abnormality seen. 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
== END 2019-09-13 11:23 ==
PROVIDERS: PCP Family Medicine; Referring Provider Family Medicine; Visit Provider Student in an Organized Health Care Education/Training Program
DX: M25.512 Pain in left shoulder (principal); M19.012 Primary osteoarthritis, left shoulder; S46.112D Strain of muscle, fascia and tendon of long head of biceps, left arm, subsequent encounter; X58.XXXD Exposure to other specified factors, subsequent encounter; M75.42 Impingement syndrome of left shoulder; M75.52 Bursitis of left shoulder
CPT/HCPCS: 99213; 73030

== ENCOUNTER → 2019-11-02 13:55 | Outpatient (BNVA) | payer MEDICARE, OTHER, SELFPAY | PROVIDERS: PCP Family Medicine; Referring Provider Family Medicine; Visit Provider Surgery | DX: K43.2 Incisional hernia without obstruction or gangrene (principal); D64.9 Anemia, unspecified; E88.09 Other disorders of plasma-protein metabolism, not elsewhere classified; J44.9 Chronic obstructive pulmonary disease, unspecified; E11.21 Type 2 diabetes mellitus with diabetic nephropathy | CPT/HCPCS: 99213 ==

== ENCOUNTER 2019-11-03 04:04 | Outpatient (CLI) | payer MEDICARE, OTHER, SELFPAY ==
[2019-11-03 12:01] LABS: Estimated GFR 54.35 (mL/min/1.73m2)
[2019-11-03 12:02] LABS: HCT 40.3 % (36.0-46.0); HGB 12.5 g/dL (11.2-15.7); MCH 25.4 pg (27.0-33.0); MCV 81.7 fL (80-95); MPV 10.7 fL (8.0-11.0); Platelet Count 322 10^3/uL (130-400); RBC 4.93 10^6/uL (3.93-5.22); RDW 18.7 % (11.7-14.6); RDW-SD 55.1 fL; WBC 8.72 10^3/uL (4.4-10.8)
[2019-11-03 13:04] LABS: Iron 37 ug/dL (50-170); Total Iron Binding Capacity 391 ug/dL (250-450); Transferrin Sat 9 % (15-50)
[2019-11-03 13:15] LABS: ALT 23 U/L (14-59); AST 14 U/L (15-37); Albumin 3.6 g/dL (3.4-5.0); Alkaline Phosphatase 154 U/L (46-116); Anion Gap 9.6 mmol/L (3-11); BUN 17 mg/dL (7-18); Bilirubin, Total 0.4 mg/dL (0.2-1.0); CO2 24.4 mmol/L (21.0-32.0); CREATININE 0.96 mg/dL (0.55-1.02); Calcium 9.5 mg/dL (8.5-10.1); Chloride 106 mmol/L (98-107); Estimated GFR 56.97 (mL/min/1.73m2); Ferritin 20 ng/mL (8-252); Glucose 98 mg/dL (74-106); Potassium 4.4 mmol/L (3.5-5.1); Sodium 140 mmol/L (136-145); Total Protein 6.9 g/dL (6.4-8.2)
== END 2019-11-03 04:24 ==
PROVIDERS: PCP Family Medicine; Visit Provider Surgery
DX: E11.21 Type 2 diabetes mellitus with diabetic nephropathy (principal); D64.9 Anemia, unspecified; R63.8 Other symptoms and signs concerning food and fluid intake; J44.9 Chronic obstructive pulmonary disease, unspecified; E88.09 Other disorders of plasma-protein metabolism, not elsewhere classified; K46.9 Unspecified abdominal hernia without obstruction or gangrene; R05 Cough
CPT/HCPCS: 36415; 80053; 85027; 82565; 82728; 83036; 83540; 83550

== ENCOUNTER → 2019-12-13 13:56 | Outpatient (CLI) | payer MEDICARE, OTHER, SELFPAY ==
--- NOTE | 2019-12-13 11:30 | DI.RAD_ITS ---
EXAM: XR SHOULDER RT COMPLETE 2+V CLINICAL HISTORY: right shoulder pain. TECHNIQUE: 2D digital imaging was performed. COMPARISON: CR CHEST 2 VIEWS PA,LAT from 05/02/2013 CR XR SHOULDER LT COMPLETE 2+V from 09/13/2019 FINDINGS: BONES: No acute fracture is present. No bony destructive lesion is seen. There has been a previous di stal clavicular resection. A small spur is noted at the tip of the acromion, projecting superiorly. JOINTS: No dislocation present. There is spurring at the glenohumeral joint but no significant joint space narrowing. There is spurring at the greater and lesser tuberosities. No tendon or joint space calcifications are seen. IMPRESSION: Postsurgical and degenerative changes. DATA REPOSITORY: RADIATION DOSE DELIVERED:
== END ==
PROVIDERS: PCP Family Medicine; Referring Provider Family Medicine; Visit Provider Student in an Organized Health Care Education/Training Program
DX: M25.511 Pain in right shoulder (principal); M77.8 Other enthesopathies, not elsewhere classified; M19.011 Primary osteoarthritis, right shoulder; S46.112D Strain of muscle, fascia and tendon of long head of biceps, left arm, subsequent encounter; S46.012D Strain of muscle(s) and tendon(s) of the rotator cuff of left shoulder, subsequent encounter; X58.XXXD Exposure to other specified factors, subsequent encounter; M75.42 Impingement syndrome of left shoulder; M75.52 Bursitis of left shoulder
CPT/HCPCS: 99214; 73030

== ENCOUNTER → 2020-03-12 14:51 | Outpatient (BNVA) | payer MEDICARE, OTHER, SELFPAY | PROVIDERS: PCP Family Medicine; Referring Provider Family Medicine; Visit Provider Surgery | DX: K42.9 Umbilical hernia without obstruction or gangrene (principal); E11.9 Type 2 diabetes mellitus without complications; J44.9 Chronic obstructive pulmonary disease, unspecified; Z87.891 Personal history of nicotine dependence | CPT/HCPCS: 99214 ==

== ENCOUNTER 2020-05-11 01:33 | Outpatient (CLI) | payer MEDICARE, OTHER, SELFPAY ==
[2020-05-11 13:21] LABS: Hemoglobin A1C 5.9 % (<5.7)
== END 2020-05-11 01:34 | disposition home or self-care (01) ==
LOC: LOS 01:33
PROVIDERS: PCP Family Medicine; Visit Provider Family Medicine
DX: E11.9 Type 2 diabetes mellitus without complications (principal)
CPT/HCPCS: 36415; 83036

== ENCOUNTER 2020-08-10 10:50 | Outpatient (CLI) | payer MEDICARE, OTHER, SELFPAY ==
[2020-08-10 12:00] LABS: Hemoglobin A1C 5.9 % (<5.7)
== END 2020-08-10 10:51 | disposition home or self-care (01) ==
LOC: LBO 08-12 04:40
PROVIDERS: PCP Family Medicine; Visit Provider Family Medicine
DX: E11.9 Type 2 diabetes mellitus without complications (principal)
CPT/HCPCS: 36415; 83036

== ENCOUNTER 2020-09-21 04:39 | Outpatient (CLI) | payer MEDICARE, OTHER, SELFPAY ==
--- NOTE | 2020-09-21 11:14 | DI.RAD_ITS ---
Exam(s) XR KNEE RT 3V AP,LAT,CHADWICK EXAM: XR KNEE RT 3V AP,LAT,CHADWICK CLINICAL HISTORY: knee pain,m25.569. TECHNIQUE: 2D digital imaging was performed. COMPARISON: No exams were available for comparison FINDINGS: BONES: No acute fracture is present. No bony destructive lesion is seen. JOINTS: Moderate narrowing of the lateral femoral tibial joint space and periarticular spurring. Min imal spurring at the articular aspect of the patella. Small bony density seen near the tibial spines . No joint effusion is seen. SOFT TISSUE: Normal. IMPRESSION: Degenerative changes, greatest of the lateral femoral tibial joint. DATA REPOSITORY: RADIATION DOSE DELIVERED:
== END 2020-09-21 04:59 ==
PROVIDERS: PCP Family Medicine; Visit Provider Family Medicine
DX: M17.11 Unilateral primary osteoarthritis, right knee (principal)
CPT/HCPCS: 73562

== ENCOUNTER 2020-10-25 03:32 | Outpatient (CLI) | payer MEDICARE, OTHER, SELFPAY ==
[2020-10-25 13:23] LABS: COMMENT (LAB VIEW ONLY) 99.32 mg/dL; Microalb ug/mg Crea 10.4 ug/mg Cr
[2020-10-25 13:38] LABS: Hemoglobin A1C 5.8 % (<5.7)
== END 2020-10-25 03:33 | disposition home or self-care (01) ==
LOC: LOS 03:33
PROVIDERS: PCP Family Medicine; Visit Provider Family Medicine
DX: E11.9 Type 2 diabetes mellitus without complications (principal)
CPT/HCPCS: 36415; 82043; 82570; 83036

== ENCOUNTER → 2021-01-04 09:04 | Outpatient (BNVA) | payer MEDICARE, OTHER, SELFPAY | PROVIDERS: PCP Family Medicine; Referring Provider Family Medicine; Visit Provider Student in an Organized Health Care Education/Training Program | DX: M25.561 Pain in right knee (principal); M17.11 Unilateral primary osteoarthritis, right knee; X50.9XXA Other and unspecified overexertion or strenuous movements or postures, initial encounter | CPT/HCPCS: 20610; 99213; J1040 ==

== ENCOUNTER 2021-02-15 11:32 | Outpatient (CLI) | payer MEDICARE, OTHER, SELFPAY ==
--- NOTE | 2021-02-15 11:50 | DI.RAD_ITS ---
Exam(s) XR HIP RT COMPLETE AP PELVIS EXAM: XR HIP RT COMPLETE AP PELVIS CLINICAL HISTORY: right hip pain. TECHNIQUE: 2D digital imaging was performed of the right hip. Two images were obtained. AP pelvis a nd lateral right hip views were obtained. COMPARISON: CR LUMBAR SPINE COMPLETE from 06/17/2016 CR RT HIP COMPLETE AP PELVIS from 06/17/2016 CR THORACIC SPINE from 06/17/2016 CR RT HIP COMPLETE AP PELVIS from 06/17/2016 CR LUMBAR SPINE COMPLETE from 06/17/2016 CR THORACIC SPINE from 06/17/2016 FINDINGS: BONES: No acute fracture is present. No bony destructive lesion is seen. JOINTS: No dislocation present. Mild degenerative changes are seen in the right hip with joint space narrowing. Enthesophytes are seen at the greater trochanter. SOFT TISSUE: Normal. IMPRESSION: Mild degenerative changes of the right hip. DATA REPOSITORY: RADIATION DOSE DELIVERED:
== END 2021-02-15 11:33 | disposition home or self-care (01) ==
LOC: DIORS 11:33
PROVIDERS: PCP Family Medicine; Referring Provider Family Medicine; Visit Provider Student in an Organized Health Care Education/Training Program
DX: M25.551 Pain in right hip (principal); M70.61 Trochanteric bursitis, right hip; M16.11 Unilateral primary osteoarthritis, right hip
CPT/HCPCS: 20610; 73502; J1040

== ENCOUNTER → 2021-04-12 10:27 | Outpatient (BNVA) | payer MEDICARE, SELFPAY | PROVIDERS: PCP Family Medicine; Visit Provider Student in an Organized Health Care Education/Training Program | DX: M70.61 Trochanteric bursitis, right hip (principal); M16.11 Unilateral primary osteoarthritis, right hip; G57.01 Lesion of sciatic nerve, right lower limb; M54.50 Low back pain, unspecified | CPT/HCPCS: 99213 ==

== ENCOUNTER 2021-05-01 00:57 | Outpatient (CLI) | payer MEDICARE, SELFPAY ==
--- NOTE | 2021-05-01 09:10 | DI.MRI_ITS ---
Exam(s) MR LUMBAR SPINE WO EXAM: MR LUMBAR SPINE WO CLINICAL HISTORY: LOW BACK PAIN,m54.5. TECHNIQUE: Multiplanar multisequence MRI was performed. FINDINGS: MR examination lumbosacral spine was performed according to the usual protocol. Examination is hima red with prior examination of June 2013. There is a mild biconvex lumbar scoliosis. There are prominent a Louise discal vertebral signal change s at L1-2, L2-3, and L3-4. No other significant bony signal abnormality seen. 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 There is an apparent prior low er lumbar laminectomy. No significant findings apart from a mild disc bulge at the T11-T12 level. At T12-L1, there are no significant findings. Conus medullaris appears intact. At L1-2 there is prominence of the disc osteophyte complex. There is no significant central canal sp inal stenosis. There is severe bilateral neural foraminal stenosis. At L 2 3, there is prominence of the disc osteophyte complex and facet hypertrophy. There is severe bilateral neural foraminal stenosis. No focal disc herniation. No significant central canal spinal stenosis. At L3-4, there is prominence of the disc osteophyte complex. No gross central canal spinal stenosis. Very prominent facet hypertrophic changes. Severe bilateral neural foraminal stenosis. At L4-5, there is mild disc bulge. There is moderate prominence of the facets. There is moderate to severe bilateral neural foraminal stenosis without evidence of a central canal stenosis. At L5-S1, there is moderate disc bulge. There is slight bilateral neural foraminal narrowing. IMPRESSION: Multilevel neural foraminal narrowing as described above secondary to prominent facet and endplate hy pertrophic degenerative changes. Little interval change comparison with prior MRI of 2013. No acute disc herniation. DATA REPOSITORY:
== END 2021-05-01 01:17 ==
LOC: DI 00:58
PROVIDERS: PCP Family Medicine; Visit Provider Student in an Organized Health Care Education/Training Program
DX: M54.59 Other low back pain (principal); M47.816 Spondylosis without myelopathy or radiculopathy, lumbar region; M48.061 Spinal stenosis, lumbar region without neurogenic claudication
CPT/HCPCS: 72148

== ENCOUNTER 2021-05-31 02:46 | Outpatient (CLI) | payer MEDICARE, SELFPAY ==
[2021-05-31 15:13] LABS: Hemoglobin A1C 6.2 % (<5.7)
[2021-05-31 16:16] LABS: ALT 27 U/L (14-59); AST 14 U/L (15-37); Albumin 3.4 g/dL (3.4-5.0); Alkaline Phosphatase 143 U/L (46-116); BUN 24 mg/dL (7-18); Bilirubin, Total 0.3 mg/dL (0.2-1.0); Calcium 8.8 mg/dL (8.5-10.1); Calculated LDL 89 mg/dL (<100); Chloride 107 mmol/L (98-107); Cholesterol 186 mg/dL (<200); Glucose 134 mg/dL (74-106); HDL Cholesterol 47 mg/dL (40-60); Potassium 4.3 mmol/L (3.5-5.1); Sodium 139 mmol/L (136-145); TSH (W/Ref FT4) 2.34 uIU/mL (0.36-3.74); Total Protein 6.5 g/dL (6.4-8.2); Triglyceride 252 mg/dL (<150)
== END 2021-05-31 02:47 | disposition home or self-care (01) ==
LOC: LBO 02:49
PROVIDERS: PCP Family Medicine; Visit Provider Family Medicine
DX: E03.9 Hypothyroidism, unspecified (principal); E04.2 Nontoxic multinodular goiter; E11.21 Type 2 diabetes mellitus with diabetic nephropathy; E78.5 Hyperlipidemia, unspecified; I10 Essential (primary) hypertension; N25.9 Disorder resulting from impaired renal tubular function, unspecified
CPT/HCPCS: 36415; 80053; 80061; 83036; 84443

== ENCOUNTER → 2021-07-25 02:24 | Outpatient (CLI) | payer MEDICARE, SELFPAY ==
--- NOTE | 2021-07-25 08:45 | DI.DEXA_ITS ---
Exam(s) XR DEXA BONE DENSITY W/WO PEACE EXAM: XR DEXA BONE DENSITY W/WO PEACE CLINICAL HISTORY: osteoporosis, M81.0 TECHNIQUE: COMPARISON: Comparison examination is a 12/11/2003. FINDINGS: Lateral Spine Image: Unremarkable. No compression deformities identified. Left hip: Total T-Score: -0.3. This compares with the T-score of -0.5 on the prior examination. Total Z-Score: 1.5 T- and Z-scores: Within normal limits. Lumbar Spine: Total T-Score: 2.7. This compares to 0.0 on the prior examination. Total Z-Score: 5.1 T- and Z-scores: Within normal limits. IMPRESSION: No evidence of osteoporosis.
--- NOTE | 2021-07-25 08:45 | DI.MAMMO_ITS ---
Exam(s) MAMMO SCREENING EXAM: MAMMO SCREENING CLINICAL HISTORY: screening, Z12.39 TECHNIQUE: Bilateral full field digital CC and MLO mammographic images were obtained with 3D tomosyn thesis and utilizing computer aided detection (CAD). COMPARISON: Available for comparison. FINDINGS: Masses/Architectural Distortion: None seen. Microcalcifications: No suspicious pleomorphic-type are seen. Skin Thickening/Nipple Retraction: None. IMPRESSION: 1. No significant interval change with no specific features of malignancy noted. 2. Unless there is more urgent need, screening mammography is recommended, as per [employer] [place] [employer] guidelines. BI-RADS Category 1 - Negative Breast Density - Category A - Almost entirely fatty Breast density category C or D implies that the patient has dense breast tissue. Dense breast tissue is very common and is not abnormal but dense breast tissue can make it harder to find cancer on a ma mmogram. Also, dense breast tissue may increase their breast cancer risk. This information about the result of the mammogram report was provided to the patient to raise their awareness. Use this report when you speak with the patient about their risks for breast cancer, which includes their family hist ory. At that time, you may recommend for more screening tests (Ultrasound or MRI) as they might be us eful based on their risk. A negative radiographic report should not delay biopsy if a dominant or clinically suspicious mass is present. Up to ten percent of cancers are not identified on mammography. A negative report may reinforce clinical impression. Adenosis and dense breasts may obscure an underlying neoplasm. False positive reports average 6 to 10%. Patient will receive a letter notifying them of these results.
== END ==
PROVIDERS: PCP Family Medicine; Visit Provider Family Medicine
DX: Z12.31 Encounter for screening mammogram for malignant neoplasm of breast (principal); M81.0 Age-related osteoporosis without current pathological fracture
CPT/HCPCS: 77063; 77067; 77080

== ENCOUNTER 2021-11-21 04:03 | Outpatient (CLI) | payer MEDICARE, SELFPAY ==
[2021-11-21] MEDS: Inhaler, Assist Device 1 EACH MC (16:07)
[2021-11-21] MEDS: Albuterol HFA 18 GM 200 PUFF INH IH (16:07)
--- NOTE | 2021-11-22 15:50 | W.PFT ---
Date of service: 11/21/21 Time of Service: 15:00 Pulmonary Function Test Result Requesting Provider Khalida Cole Indications: [place] Interpretation Spirometry: There is no airflow limitation. There is no significant bronchodilator response. Lung Volumes: Lung volumes are normal. Diffusion Capacity: Diffusion is normal. Airway Pressure: Normal airways resistance. Impression Normal pulmonary function testing. Note: As compared to 09/27/10, there has been age related declines in lung function. Clinical Correlation therefore is recommended.
== END 2021-11-21 04:04 | disposition home or self-care (01) ==
LOC: RT 04:03
PROVIDERS: PCP Family Medicine; Visit Provider Family Medicine
DX: J44.9 Chronic obstructive pulmonary disease, unspecified (principal); R06.09 Other forms of dyspnea; J47.9 Bronchiectasis, uncomplicated; Z87.891 Personal history of nicotine dependence
CPT/HCPCS: 94060; 94726; 94729

== ENCOUNTER 2022-01-08 10:23 | Outpatient (CLI) | payer MEDICARE, SELFPAY ==
--- NOTE | 2022-01-08 09:30 | DI.RAD_ITS ---
Exam(s) XR PAIN CLINIC SACRIOILIAC 2V EXAM: XR PAIN CLINIC SACRIOILIAC 2V CLINICAL HISTORY: DX: sacroiliac dysfunction TECHNIQUE: 2D and realtime digital imaging was performed. CONTRAST MATERIAL: Refer to procedure report. COMPARISON: No exams were available for comparison FINDINGS: Fluoroscopy was provided for Dr. Garcia during the performance of a right SI joint injection. Please refer to the procedure report for complete details. Ka,r=10.6 mGy IMPRESSION:
[2022-01-08 10:33] VITALS: BP 122/78; PULSE 74; RESP 20; TEMP 36.9; O2SAT 97
[2022-01-08 11:20] VITALS: BP 157/93; PULSE 83; RESP 16; O2SAT 97
[2022-01-08] MEDS: methylPREDNISolone ACETATE 80 MG/ML VIAL IM (11:24)
[2022-01-08] MEDS: Omnipaque 240 MG/ML 50 ML BTL IJ (11:24)
--- NOTE | 2022-01-08 12:53 | PDOC.PAIN_ITS ---
Date of service: 01/08/22 Time of Service: 11:30 Pain Clinic Procedure Note Procedure Note Procedure Note: INTRA-ARTICULAR SI JOINT INJECTION Kaycee Miles has been referred to the [facility] for intra- articular SI joint injection. COMMENTS: Pre-procedure pain VAS was 5/10. Dx: Sacroiliac joint dysfunction Patient was interviewed and the medical record reviewed. There were no medical, pharmacologic, radiographic or other structural contraindications to attempting fluoroscopically guided intra-articular SI joint injection. Risks and expected side effects as well as potential benefit of the procedure were reviewed and voiced concerns addressed. The printed consent form was signed and witnessed. Standard time-out procedure was performed. Patient was placed in the prone position on the fluoroscopy table and automated blood pressure cuff and pulse oximeter applied. The skin entry point for approaching the right SI joint was identified under the most advantageous fluoroscopic view and marked. Following thorough Chlorhexadine preparation of the skin and draping and 1% lidocaine infiltration of the skin entry point and subcutaneous tissues, a 22 gauge 3.5 spinal needle was placed under fl uoroscopic guidance into the right SI joint was identified under the most advantageous fluoroscopic view and marked. Intra-articular placement was confirmed by a clear arthrogram resulting from the injection of 0.25ml Omnipaque 240, 1ml 1% lidocaine, and 80mg Depomedrol were injected intra-articularily with an initial reproduction of a significant component of the usual pain. Vital signs were stable throughout the procedure and were as recorded in the docflowsheet by the nursing staff. If given, dosages of intravenous drugs for anxiolysis and analgesia were documented in MAR. Follow up plans and appointments were discussed with the patient. Post procedure instruction was given as documented in nursing documentation and having met discharge criteria, and was discharged from the [facility] Management [facility]. COMMENTS: Post-procedure pain VAS was 1/10. Javier Garcia DO, MPH [facility]-Pain Management [facility]-Center for [facility] Management CC: Khalida Cole MD, DC
== END 2022-01-08 10:24 | disposition home or self-care (01) ==
LOC: PC 10:24
PROVIDERS: PCP Family Medicine; Visit Provider Preventive Medicine Occupational Medicine
DX: M54.50 Low back pain, unspecified (principal); M53.3 Sacrococcygeal disorders, not elsewhere classified
CPT/HCPCS: G0260; 72200; J1040; Q9967

== ENCOUNTER 2022-01-09 04:42 | Outpatient (CLI) | payer MEDICARE, SELFPAY ==
[2022-01-09 12:54] LABS: HCT 46.6 % (36.0-46.0); HGB 15.1 g/dL (11.2-15.7); MCH 30.9 pg (27.0-33.0); MCHC 32.4 % (32.0-36.0); MCV 95 fL (80-95); MPV 11.4 fL (8.0-11.0); Platelet Count 253 10^3/uL (130-400); RBC 4.89 10^6/uL (3.93-5.22); RDW 14.2 % (11.7-14.6); RDW-SD 49.8 fL; WBC 8.69 10^3/uL (4.4-10.8)
[2022-01-09 13:07] LABS: Hemoglobin A1C 5.6 % (<5.7)
[2022-01-09 13:27] LABS: COMMENT (LAB VIEW ONLY) 255.31 mg/dL
[2022-01-09 13:30] LABS: Microalb ug/mg Crea 77.9 ug/mg Cr
[2022-01-09 13:30] LABS: ALT 34 U/L (14-59); AST 21 U/L (15-37); Albumin 3.8 g/dL (3.4-5.0); Alkaline Phosphatase 115 U/L (46-116); Anion Gap 13.5 mmol/L (3-11); BUN 18 mg/dL (7-18); Bilirubin, Total 0.4 mg/dL (0.2-1.0); CO2 22.5 mmol/L (21.0-32.0); CREATININE 1.2 mg/dL (0.55-1.02); Calcium 9.6 mg/dL (8.5-10.1); Chloride 103 mmol/L (98-107); Estimated GFR 47.21 (mL/min/1.73m2); Glucose 114 mg/dL (74-106); Potassium 3.7 mmol/L (3.5-5.1); Sodium 139 mmol/L (136-145); TSH (W/Ref FT4) 1.53 uIU/mL (0.36-3.74); Total Protein 7.5 g/dL (6.4-8.2); Vitamin B12 578 pg/mL (193-986)
== END 2022-01-09 04:43 | disposition home or self-care (01) ==
LOC: LOS 04:42
PROVIDERS: PCP Family Medicine; Visit Provider Family Medicine
DX: J44.9 Chronic obstructive pulmonary disease, unspecified (principal); R25.1 Tremor, unspecified; E11.21 Type 2 diabetes mellitus with diabetic nephropathy; D64.9 Anemia, unspecified
CPT/HCPCS: 80053; 85027; 82043; 82570; 82607; 83036; 84443

== ENCOUNTER 2022-04-04 13:21 | Outpatient (REF) | payer MEDICARE, SELFPAY | END 2022-04-04 13:22 | disposition home or self-care (01) | LOC: LBN 13:21 | PROVIDERS: PCP Family Medicine; Visit Provider Nurse Practitioner Family | DX: N76.0 Acute vaginitis (principal); R30.0 Dysuria | CPT/HCPCS: 87086; 87480; 87510; 87660 ==

== ENCOUNTER 2022-04-08 16:05 | Outpatient (REF) | payer MEDICARE, SELFPAY | END 2022-04-08 16:06 | disposition home or self-care (01) | LOC: LBN 16:05 | PROVIDERS: PCP Family Medicine; Visit Provider Family Medicine | DX: N76.0 Acute vaginitis (principal) | CPT/HCPCS: 87480; 87510; 87660 ==

== ENCOUNTER 2022-04-25 13:17 | Outpatient (CLI) | payer MEDICARE, SELFPAY ==
--- NOTE | 2022-04-25 09:15 | DI.RAD_ITS ---
Exam(s) XR KNEE LT 3V AP,LAT,CHADWICK EXAM: XR KNEE LT 3V AP,LAT,CHADWICK CLINICAL HISTORY: left knee pain, M25.562. TECHNIQUE: 2D digital imaging was performed. Three views. COMPARISON: CR LEFT KNEE 4+ VIEWS from 10/01/2015 CR XR KNEE RT 3V AP,LAT,CHADWICK from 09/21/2020 FINDINGS: BONES: No acute fracture is present. No bony destructive lesion is seen. JOINTS: Moderate narrowing of the lateral femoral tibial joint space with periarticular spurring, wor sening compared with prior. Medial femoral tibial joint space is maintained. no joint effusion is seen. SOFT TISSUE: Normal. IMPRESSION: Degenerative changes lateral femoral tibial joint. DATA REPOSITORY: RADIATION DOSE DELIVERED:
== END 2022-04-25 13:37 ==
LOC: DI 13:18
PROVIDERS: PCP Family Medicine; Visit Provider Family Medicine
DX: M17.12 Unilateral primary osteoarthritis, left knee (principal)
CPT/HCPCS: 73562

== ENCOUNTER 2022-06-23 01:34 | Outpatient (CLI) | payer MEDICARE, SELFPAY ==
[2022-06-23 13:21] LABS: ALT 22 U/L (14-59); AST 20 U/L (15-37); Albumin 3.6 g/dL (3.4-5.0); Alkaline Phosphatase 127 U/L (46-116); Anion Gap 10.6 mmol/L (3-11); BUN 18 mg/dL (7-18); Bilirubin, Total 0.4 mg/dL (0.2-1.0); CO2 23.4 mmol/L (21.0-32.0); CREATININE 1.1 mg/dL (0.55-1.02); Calcium 9.6 mg/dL (8.5-10.1); Chloride 105 mmol/L (98-107); Estimated GFR 52.08 (mL/min/1.73m2); Glucose 116 mg/dL (74-106); Potassium 3.8 mmol/L (3.5-5.1); Sodium 139 mmol/L (136-145); TSH (W/Ref FT4) 2.68 uIU/mL (0.36-3.74); Total Protein 7.3 g/dL (6.4-8.2)
[2022-06-23 13:26] LABS: Hemoglobin A1C 5.3 % (<5.7)
== END 2022-06-23 01:35 | disposition home or self-care (01) ==
LOC: LOS 01:34
PROVIDERS: PCP Family Medicine; Visit Provider Family Medicine
DX: E11.9 Type 2 diabetes mellitus without complications (principal); E03.9 Hypothyroidism, unspecified; I10 Essential (primary) hypertension; F41.8 Other specified anxiety disorders
CPT/HCPCS: 36415; 80053; 83036; 84443

== ENCOUNTER 2022-07-24 02:08 | Outpatient (CLI) | payer MEDICARE, SELFPAY ==
--- NOTE | 2022-07-24 14:15 | DI.MAMMO_ITS ---
Exam(s) US BREAST LT LIMITED MG MAMMO DIAGNOSTIC BI EXAM: MAMMO DIAGNOSTIC BI and U/S breast LT limited CLINICAL HISTORY: new lt breast lump, diagnostic,mastodynia,n63.0,N64.4. TECHNIQUE: Craniocaudal and mediolateral oblique Full Field Digital Mammography views with Computer Aided Diagnosis followed by Tomosynthesis and left breast ultrasound. COMPARISON: Comparison is made with prior examinations. FINDINGS: Mammography/Tomosynthesis: Masses/Architectural Distortion: The patient has a history of bilateral breast reduction surgery. Th ere again seen areas of fat necrosis or oral cysts in the retroareolar regions of both breasts, left greater than right. No suspicious masses or areas of architectural distortion are seen. Microcalcifictions: No suspicious pleomorphic-type are seen. Skin Thickening/Nipple Retraction: None. Limited left breast US: Echotexture: Normal appearance of the glandular tissue. Shadowing: No suspicious foci. Cyst: Multiple cystic lesions are seen in the retroareolar region corresponding to the areas of fat n ecrosis/oil cysts on the mammogram. Solid lesions: None seen. Ductal dilation: None. IMPRESSION: 1. No evidence of malignancy is noted. 2. Unless there is more urgent need, follow-up screening mammography is recommended, as per [place] [employer] guidelines. 3. The findings were discussed with the patient on the date of the examination. BI-RADS Category 2 - Benign Findings Breast Density - Category A - Almost entirely fatty Breast density Category C or D implies that the patient has dense breast tissue. Dense breast tissue can make it harder to find cancer on a mammogram. Dense breast tissue is also associated with an incr eased risk of breast cancer. This information about the result of the mammogram report was provided to the patient to raise their awareness. Use this report when you speak with the patient about their risks for breast cancer, which includes their family history. At that time, you may recommend additional screening tests (Ultrasoun d or MRI) as these tests may add significant information. A negative radiographic report should not delay biopsy if a dominant or clinically suspicious mass is present. Up to ten percent of cancers are not identified on mammography. A negative report may reinforce clinical impression. Adenosis and dense breasts may obscure an underlying neoplasm. False positive reports average 6 to 10%. Patient will receive a letter notifying them of these results.
== END 2022-07-24 02:28 ==
LOC: DI 02:08
PROVIDERS: PCP Family Medicine; Visit Provider Family Medicine
DX: R92.8 Other abnormal and inconclusive findings on diagnostic imaging of breast (principal); Z12.31 Encounter for screening mammogram for malignant neoplasm of breast
CPT/HCPCS: 76642; 77062; 77066; G0279

== ENCOUNTER 2022-12-18 04:47 | Outpatient (CLI) | payer MEDICARE, SELFPAY ==
[2022-12-18 12:41] LABS: Hemoglobin A1C 5.2 % (<5.7)
[2022-12-18 13:00] LABS: ALT 22 U/L (14-59); AST 20 U/L (15-37); Albumin 3.5 g/dL (3.4-5.0); Alkaline Phosphatase 122 U/L (46-116); Anion Gap 14.1 mmol/L (3-11); BUN 19 mg/dL (7-18); Bilirubin, Total 0.4 mg/dL (0.2-1.0); CO2 20.9 mmol/L (21.0-32.0); CREATININE 0.9 mg/dL (0.55-1.02); Calcium 9.6 mg/dL (8.5-10.1); Chloride 106 mmol/L (98-107); Estimated GFR 66.26 (mL/min/1.73m2); Glucose 104 mg/dL (74-106); Potassium 3.9 mmol/L (3.5-5.1); Sodium 141 mmol/L (136-145); TSH (W/Ref FT4) 3.24 uIU/mL (0.36-3.74); Total Protein 7.1 g/dL (6.4-8.2); Vitamin B12 1011 pg/mL (193-986)
== END 2022-12-18 04:48 | disposition home or self-care (01) ==
LOC: LOS 04:47
PROVIDERS: PCP Family Medicine; Visit Provider Family Medicine
DX: E03.9 Hypothyroidism, unspecified (principal); E11.21 Type 2 diabetes mellitus with diabetic nephropathy; E66.01 Morbid (severe) obesity due to excess calories; I10 Essential (primary) hypertension; E11.9 Type 2 diabetes mellitus without complications
CPT/HCPCS: 36415; 80053; 82607; 83036; 84443

== ENCOUNTER 2023-01-13 15:05 | Outpatient (REF) | payer MEDICARE, SELFPAY ==
[2023-01-13 21:29] LABS: Bilirubin Negative (Negative); Blood Negative (Negative); Clarity Clear (Clear); Glucose Negative (Negative); Ketones Trace mg/dL (Negative); Leukocyte Esterase Negative (Negative); Nitrite Negative (Negative); Specific Gravity 1.015 (1.005-1.025); Urobilinogen 0.2 mg/dL (Up to 0.2)
== END 2023-01-13 15:06 | disposition home or self-care (01) ==
LOC: LBN 15:05
PROVIDERS: PCP Family Medicine; Visit Provider Family Medicine
DX: R35.0 Frequency of micturition (principal)
CPT/HCPCS: 81003

== ENCOUNTER 2023-01-15 13:21 | Outpatient (REF) | payer MEDICARE, SELFPAY | END 2023-01-15 13:22 | disposition home or self-care (01) | LOC: LBN 13:21 | PROVIDERS: PCP Family Medicine; Visit Provider Family Medicine | DX: N76.0 Acute vaginitis (principal) | CPT/HCPCS: 87480; 87510; 87660 ==

== ENCOUNTER 2023-01-26 14:49 | Outpatient (REF) | payer MEDICARE, SELFPAY | END 2023-01-26 14:50 | disposition home or self-care (01) | LOC: LBN 14:49 | PROVIDERS: PCP Family Medicine; Visit Provider Family Medicine | DX: N89.8 Other specified noninflammatory disorders of vagina (principal) | CPT/HCPCS: 87480; 87510; 87660 ==

== ENCOUNTER → 2023-03-10 11:28 | Outpatient (BNVA) | payer MEDICARE, SELFPAY | PROVIDERS: PCP Family Medicine; Referring Provider Family Medicine; Visit Provider Student in an Organized Health Care Education/Training Program | DX: J47.9 Bronchiectasis, uncomplicated (principal); J45.909 Unspecified asthma, uncomplicated | CPT/HCPCS: 94618; 99215 ==

== ENCOUNTER 2023-04-01 14:00 | Outpatient (RCR) | payer MEDICARE, SELFPAY | END 2023-04-01 23:59 | disposition home or self-care (01) | LOC: PRC 14:00 | PROVIDERS: PCP Family Medicine; Visit Provider Student in an Organized Health Care Education/Training Program | DX: J47.1 Bronchiectasis with (acute) exacerbation (principal) | CPT/HCPCS: 94626 ==

== ENCOUNTER 2023-04-27 14:00 | Outpatient (RCR) | payer MEDICARE, SELFPAY | END 2023-04-30 23:59 | disposition home or self-care (01) | LOC: PRC 14:00 | PROVIDERS: PCP Family Medicine; Visit Provider Student in an Organized Health Care Education/Training Program | DX: J47.9 Bronchiectasis, uncomplicated (principal) | CPT/HCPCS: 94626 ==

== ENCOUNTER 2023-05-13 14:25 | Outpatient (RCR) | payer MEDICARE, SELFPAY ==
[2023-05-19 09:00] VITALS: BP 113/67; PULSE 65
--- NOTE | 2023-05-26 09:44 | W.PFT ---
Date of service: 05/26/23 Time of Service: 08:42 Pulmonary Function Test Result Indications: Pulmonary Rehab Interpretation Spirometry: There is no airflow limitation. Impression Normal spirometry Clinical Correlation therefore is recommended.
== END 2023-05-31 23:59 | disposition home or self-care (01) ==
LOC: PRC 14:25
PROVIDERS: PCP Family Medicine; Visit Provider Student in an Organized Health Care Education/Training Program
DX: J47.9 Bronchiectasis, uncomplicated (principal)
CPT/HCPCS: 94626

== ENCOUNTER 2023-06-26 00:57 | Outpatient (CLI) | payer MEDICARE, SELFPAY ==
[2023-06-26 12:56] LABS: ALT 21 U/L (14-59); AST 13 U/L (15-37); Albumin 3.7 g/dL (3.4-5.0); Alkaline Phosphatase 108 U/L (46-116); Anion Gap 12.2 mmol/L (3-11); BUN 25 mg/dL (7-18); Bilirubin, Total 0.5 mg/dL (0.2-1.0); CO2 23.8 mmol/L (21.0-32.0); CREATININE 1.1 mg/dL (0.55-1.02); Calcium 9.5 mg/dL (8.5-10.1); Calculated LDL 189 mg/dL (<100); Chloride 105 mmol/L (98-107); Cholesterol 288 mg/dL (<200); Estimated GFR 51.75 (mL/min/1.73m2); Glucose 92 mg/dL (74-106); HDL Cholesterol 55 mg/dL (40-60); Potassium 4.3 mmol/L (3.5-5.1); Sodium 141 mmol/L (136-145); TSH (W/Ref FT4) 3.04 uIU/mL (0.36-3.74); Total Protein 6.9 g/dL (6.4-8.2); Triglyceride 220 mg/dL (<150)
[2023-06-26 12:57] LABS: Hemoglobin A1C 5.2 % (<5.7)
== END 2023-06-26 00:58 | disposition home or self-care (01) ==
LOC: LOS 00:57
PROVIDERS: PCP Family Medicine; Visit Provider Family Medicine
DX: E03.9 Hypothyroidism, unspecified (principal); I10 Essential (primary) hypertension; E11.9 Type 2 diabetes mellitus without complications
CPT/HCPCS: 36415; 80053; 80061; 83036; 84443

== ENCOUNTER 2023-06-30 08:48 | Outpatient (RCR) | payer SELFPAY ==
[2023-06-02 10:21] VITALS: BP 146/74; PULSE 65
[2023-06-09 09:10] VITALS: BP 138/70; PULSE 64
[2023-06-11 08:51] VITALS: BP 146/63; PULSE 66
[2023-06-16 08:58] VITALS: BP 150/77; PULSE 63
[2023-06-18 08:56] VITALS: BP 146/66; PULSE 66
[2023-06-23 09:00] VITALS: BP 145/69; PULSE 63
[2023-06-25 09:13] VITALS: BP 157/72; PULSE 67
[2023-06-30 08:55] VITALS: BP 129/70; PULSE 71
== END 2023-06-30 23:59 | disposition home or self-care (01) ==
LOC: CR 08:48
PROVIDERS: PCP Family Medicine; Visit Provider Internal Medicine Cardiovascular Disease
DX: R69 Illness, unspecified (principal)

== ENCOUNTER → 2023-07-07 10:54 | Outpatient (BNVA) | payer MEDICARE, SELFPAY | PROVIDERS: PCP Family Medicine; Referring Provider Family Medicine; Visit Provider Student in an Organized Health Care Education/Training Program | DX: J45.909 Unspecified asthma, uncomplicated (principal); J47.9 Bronchiectasis, uncomplicated | CPT/HCPCS: 99214 ==

== ENCOUNTER 2023-07-30 09:20 | Outpatient (RCR) | payer SELFPAY ==
[2023-07-01 00:13] VITALS: BP 129/70; PULSE 71
[2023-07-02 08:59] VITALS: BP 136/63; PULSE 65; O2SAT 98
[2023-07-30 09:18] VITALS: BP 149/77; PULSE 66
== END 2023-07-31 23:59 | disposition home or self-care (01) ==
LOC: CR 09:20
PROVIDERS: PCP Family Medicine; Visit Provider Internal Medicine Cardiovascular Disease
DX: R69 Illness, unspecified (principal)

== ENCOUNTER → 2023-08-05 13:03 | Outpatient (CLI) | payer MEDICARE, SELFPAY ==
--- NOTE | 2023-08-05 10:45 | DI.RAD_ITS ---
Exam(s) XR THORACIC SPINE COMPLETE EXAM: XR THORACIC SPINE COMPLETE CLINICAL HISTORY: thoracic pain, M54.6. TECHNIQUE: 2D digital imaging was performed of the thoracic spine. Two views were obtained. AP and lateral views were obtained. COMPARISON: CR XR CHEST 2V PA LATERAL from 12/26/2017 FINDINGS: There are moderate degenerative changes seen throughout the thoracic spine characterized by disc spac e narrowing and osteophytes. The findings have progressed since the prior examination. No acute fra ctures or subluxations are seen. The paraspinal lines are intact. There is a mild right convex curv ature of the thoracic spine. The visualized lungs are clear. There is atherosclerotic calcification noted. IMPRESSION: Moderate degenerative changes seen in the thoracic spine which have progressed since the prior examin ation from 2018. DATA REPOSITORY: RADIATION DOSE DELIVERED:
--- NOTE | 2023-08-05 10:45 | DI.RAD_ITS ---
Exam(s) XR LUMBAR SPINE COMPLETE EXAM: XR LUMBAR SPINE COMPLETE CLINICAL HISTORY: LBP, M54.50. TECHNIQUE: 2D digital imaging was performed of the lumbar spine. Five images were obtained. AP, la teral, right oblique, left oblique and L5-S1 spot views were obtained. COMPARISON: MR MR LUMBAR SPINE WO from 05/01/2021 CR XR DEXA BONE DENSITY W/WO PEACE from 07/25/2021 FINDINGS: BONES: No fracture or destructive lesion. There are endplate osteophytes in the lower thoracic spine through the lumbar spine to L3-L4. There are degenerative changes of the facets particularly at L4-5 and L5-S1. DISKS: There is disc space narrowing at L1-L2 through L3-L4. ALIGNMENT: Grade 1 anterolisthesis of L5 on S1 is present. There is L5 spondylolysis. SOFT TISSUE: Atherosclerotic calcification is present. Surgical clips are seen in the right upper qu adrant of the abdomen most consistent with prior cholecystectomy. IMPRESSION: Marked degenerative changes seen throughout the lumbar spine as described above. DATA REPOSITORY: RADIATION DOSE DELIVERED:
--- NOTE | 2023-08-05 10:45 | DI.RAD_ITS ---
Exam(s) XR CERVICAL SPINE COMP 4-5V EXAM: XR CERVICAL SPINE COMP 4-5V CLINICAL HISTORY: neck pain, M54.2-cervicalgia. TECHNIQUE: 2D digital imaging was performed. Seven images were obtained. AP, odontoid, lateral and b ilateral oblique images were obtained. COMPARISON: CR,RF BARIUM SWALLOW W PA LAT CXR from 11/07/2008 FINDINGS: The odontoid is intact. The lateral masses are well aligned. There is normal alignment of the cervi nisha spine. There is disc space narrowing at C4-5 and C6-C7. Endplate osteophytes are seen at multipl e levels of the cervical spine. 1-2 mm anterolisthesis of C6 on C7 is noted. Facet arthropathy is p resent throughout the cervical spine. No acute fracture or subluxation is present. There is mild blanche ral foraminal narrowing on the right at C4-5 and C5-C6 and on the left at C5-C6. The cervical thoraci c junction is well maintained. The prevertebral soft tissues are unremarkable. Lung apices are clear . IMPRESSION: Moderate degenerative changes in the cervical spine which have progressed since the prior examination dated 11/07/2008. DATA REPOSITORY: RADIATION DOSE DELIVERED:
== END ==
PROVIDERS: PCP Family Medicine; Visit Provider Family Medicine
DX: M54.59 Other low back pain (principal); M47.817 Spondylosis without myelopathy or radiculopathy, lumbosacral region; M51.36 Other intervertebral disc degeneration, lumbar region; M51.34 Other intervertebral disc degeneration, thoracic region; M50.321 Other cervical disc degeneration at C4-C5 level
CPT/HCPCS: 72050; 72072; 72110

== ENCOUNTER 2023-08-20 14:18 | Emergency (ER) | payer MEDICARE, SELFPAY ==
[2023-08-20 14:21] VITALS: BP 130/102; PULSE 90; RESP 18; TEMP 36.9; O2SAT 96
--- NOTE | 2023-08-20 14:30 | DI.RAD_ITS ---
Exam(s) XR CHEST 2V PA LATERAL EXAM: XR CHEST 2V PA LATERAL CLINICAL HISTORY: cough TECHNIQUE: 2D digital imaging was performed. Two views. COMPARISON: CR XR CHEST 2V PA LATERAL from 12/26/[address] ABDOMEN PELVIS W from 12/09/2018 CR XR THORACIC SPINE COMPLETE from 08/05/2023 FINDINGS: A small to moderate size hiatal hernia is again noted. HEART: Normal size. Aorta: Not dilated. PULMONARY VASCULATURE: Normal. LUNGS: Densities at the left lung base, likely scarring, similar to prior. PLEURAL SPACE: No pleural effusion or pneumothorax. BONE:Degenerative changes, greatest at the thoracolumbar junction. Soft tissues: Unremarkable. IMPRESSION: No acute abnormality. DATA REPOSITORY: RADIATION DOSE DELIVERED:
--- NOTE | 2023-08-20 14:37 | ED.GENADUL_ITS ---
Discharge Plan Disposition Patient Disposition: Home Condition: Improving Discharge Details Clinical Impression: Cough Primary Care Provider: Khalida Cole ED Provider: Jak Strong Home Meds and New Rx's Prescriptions: New amoxicillin-pot clavulanate 875-125 mg tablet 1 tab PO BID 7 Days Qty: 14 0RF azithromycin 250 mg tablet See Rx Instructions .ROUTE .COMPLEX Qty: 6 0RF Rx Instructions: For 250 mg dose pack: take 500 mg today (day 1), then 250 mg for 4 days (days 2-5) No Action ibuprofen 600 mg tablet 600 mg PO Q8H PRN docusate sodium 100 mg capsule 100 mg PO .2x/week nystatin 100,000 unit/gram cream 1 applic topical BID PRN albuterol sulfate [Proventil HFA] 90 mcg/actuation HFA aerosol inhaler 2 puff IH Q6H PRN (Reason: shortness of breath or wheezing) Qty: 18 4RF triamcinolone acetonide 0.1 % cream 1 applic topical BID PRN (Reason: rash) Qty: 80 0RF atorvastatin 40 mg tablet 40 mg PO QPM Qty: 90 4RF Estring 2 mg (7.5 mcg /24 hour) ring 1 vag ring vaginal [id number] Qty: 1 4RF magnesium oxide 500 mg capsule 1,000 mg PO DAILY cholecalciferol (vitamin D3) 1,000 UNIT capsule 2 cap PO DAILY calcium-vitamin D3-vitamin K [Viactiv] 1 EACH tablet,chewable 1 ea PO DAILY CENTRUM TABLET 1 EACH tablet 1 tab PO DAILY Rx Instructions: CENTRUM W/ IRON acyclovir 15 GM ointment 1 gm Topical TID Qty: 1 11RF Trelegy Ellipta 100-62.5-25 mcg blister with device 1 inh IH Q24H Qty: 120 6RF dexlansoprazole 60 mg capsule,biphase delayed releas 60 mg PO DAILY Qty: 90 4RF levothyroxine 25 mcg tablet 25 mcg PO DAILY Qty: 90 4RF clonazepam 0.5 mg tablet 0.5 mg PO DAILY PRN (Reason: anxiety) Qty: 60 0RF Flonase Sensimist 27.5 mcg/actuation spray,suspension 1 spray NS BID Qty: 47.4 5RF losartan 25 mg tablet 25 mg PO DAILY Qty: 90 12RF metoprolol succinate 100 mg tablet extended release 24 hr 100 mg PO DAILY Qty: 90 4RF mirabegron 50 mg tablet extended release 24 hr 50 mg PO DAILY Qty: 90 11RF sertraline 100 mg tablet 100 mg PO DAILY Qty: 90 4RF Rx Instructions: start with 1/2 tab per day for 1 week, then go to full tab tirzepatide 5 mg/0.5 mL pen injector 5 mg subcut QWEEK Qty: 6 12RF oxybutynin chloride 10 mg tablet extended release 24hr 10 mg PO DAILY Qty: 90 4RF cetirizine 10 mg tablet,chewable 10 mg PO DAILY Discharge Instructions Instructions: Cough, Adult ED HPI General Date/Time Provider Initiated Documentation: 08/20/23 14:22 . HPI Narrative: 78-year-old female history of bronchiectasis presents with productive cough over the last several days, has had 2 weeks of upper respiratory symptoms cough runny nose sore throat sneezing similar to symptomatology Related Data Home Medications Medication Instructions Recorded Confirmed Centrum Tablet 1 tab PO DAILY 05/14/12 08/20/23 calcium-vitamin D3-vitamin K 500 1 ea PO DAILY 05/14/12 08/20/23 mg-500 unit-40 mcg chewable tablet (Viactiv) cholecalciferol (vitamin D3) 25 2 cap PO DAILY 05/14/12 08/20/23 mcg (1,000 unit) capsule acyclovir 5 % topical ointment 1 gm topical TID #1 tube 08/01/17 08/20/23 ibuprofen 600 mg tablet 600 mg PO Q8H PRN 01/11/19 08/20/23 docusate sodium 100 mg capsule 100 mg PO .2x/week 05/14/20 08/20/23 cetirizine 10 mg chewable tablet 10 mg PO DAILY 11/19/21 08/20/23 magnesium oxide 500 mg capsule 1,000 mg PO DAILY 11/19/21 08/20/23 nystatin 100,000 unit/gram topical 1 applic topical BID PRN 03/27/22 08/20/23 cream albuterol sulfate 90 mcg/actuation 2 puff inhalation Q6H PRN 10/06/22 08/20/23 aerosol inhaler (Proventil HFA) shortness of breath or wheezing #18 grams fluticasone fur. 100 mcg-umeclid 1 inh inhalation Q24H #120 ea 01/16/23 08/20/23 62.5 mcg-vilant 25 mcg inhalat.powder (Trelegy Ellipta) dexlansoprazole 60 mg 60 mg PO DAILY #90 caps 02/11/23 08/20/23 capsule,biphase delayed release levothyroxine 25 mcg tablet 25 mcg PO DAILY #90 tab-caps 02/11/23 08/20/23 clonazepam 0.5 mg tablet 0.5 mg PO DAILY PRN anxiety #60 03/19/23 08/20/23 tabs estradiol 2 mg (7.5 mcg/24 hour) 1 vag ring vaginal [id number] #1 ea 04/16/23 08/20/23 vaginal ring (Estring) fluticasone furoate 27.5 1 spray NS BID #47.4 mL 06/19/23 08/20/23 mcg/actuation nasal spray,suspension (Flonase Sensimist) losartan 25 mg tablet 25 mg PO DAILY #90 tab-caps 06/29/23 08/20/23 metoprolol succinate 100 mg 100 mg PO DAILY #90 tabs 06/29/23 08/20/23 tablet,extended release 24 hr mirabegron 50 mg tablet,extended 50 mg PO DAILY #90 tab-caps 06/29/23 08/20/23 release 24 hr sertraline 100 mg tablet 100 mg PO DAILY #90 tabs 06/29/23 08/20/23 tirzepatide 5 mg/0.5 mL 5 mg (0.5 mL) subcut QWEEK #6 mL 06/29/23 08/20/23 subcutaneous pen injector oxybutynin chloride 10 mg 10 mg PO DAILY #90 tabs 07/03/23 08/20/23 tablet,extended release 24 hr atorvastatin 40 mg tablet 40 mg PO QPM #90 tabs 08/04/23 08/20/23 triamcinolone acetonide 0.1 % 1 applic topical BID PRN rash #80 08/04/23 08/20/23 topical cream grams amoxicillin 875 mg-potassium 1 tab PO BID 7 days #14 tabs 08/20/23 clavulanate 125 mg tablet azithromycin 250 mg tablet See Rx Instructions PO .COMPLEX #6 08/20/23 tabs Previous Rx's Medication Instructions Recorded acyclovir 5 % topical ointment 1 gm topical TID #1 tube 08/01/17 albuterol sulfate 90 mcg/actuation 2 puff inhalation Q6H PRN 10/06/22 aerosol inhaler (Proventil HFA) shortness of breath or wheezing #18 grams fluticasone fur. 100 mcg-umeclid 1 inh inhalation Q24H #120 ea 01/16/23 62.5 mcg-vilant 25 mcg inhalat.powder (Trelegy Ellipta) dexlansoprazole 60 mg 60 mg PO DAILY #90 caps 02/11/23 capsule,biphase delayed release levothyroxine 25 mcg tablet 25 mcg PO DAILY #90 tab-caps 02/11/23 clonazepam 0.5 mg tablet 0.5 mg PO DAILY PRN anxiety #60 03/19/23 tabs estradiol 2 mg (7.5 mcg/24 hour) 1 vag ring vaginal [id number] #1 ea 04/16/23 vaginal ring (Estring) fluticasone furoate 27.5 1 spray NS BID #47.4 mL 06/19/23 mcg/actuation nasal spray,suspension (Flonase Sensimist) losartan 25 mg tablet 25 mg PO DAILY #90 tab-caps 06/29/23 metoprolol succinate 100 mg 100 mg PO DAILY #90 tabs 06/29/23 tablet,extended release 24 hr mirabegron 50 mg tablet,extended 50 mg PO DAILY #90 tab-caps 06/29/23 release 24 hr sertraline 100 mg tablet 100 mg PO DAILY #90 tabs 06/29/23 tirzepatide 5 mg/0.5 mL 5 mg (0.5 mL) subcut QWEEK #6 mL 06/29/23 subcutaneous pen injector oxybutynin chloride 10 mg 10 mg PO DAILY #90 tabs 07/03/23 tablet,extended release 24 hr atorvastatin 40 mg tablet 40 mg PO QPM #90 tabs 08/04/23 triamcinolone acetonide 0.1 % 1 applic topical BID PRN rash #80 08/04/23 topical cream grams amoxicillin 875 mg-potassium 1 tab PO BID 7 days #14 tabs 08/20/23 clavulanate 125 mg tablet azithromycin 250 mg tablet See Rx Instructions PO .COMPLEX #6 08/20/23 tabs Allergies Allergy/AdvReac Type Severity Reaction Status Date / Time pneumococcal vaccine Allergy Intermediate red & itchy Verified 08/20/23 14:26 enalapril Allergy Unknown SKIN RASH Verified 08/20/23 14:26 hydrochlorothiazide Allergy Unknown Unknown Verified 08/20/23 14:26 nitrofurantoin Allergy SKIN RASH Verified 08/20/23 14:26 Sulfa (Sulfonamide Allergy RASH Verified 08/20/23 14:26 Antibiotics) oxycodone AdvReac Intermediate VOMITING Verified 08/20/23 14:26 General Stated Complaint: RespSymp CARLOS: 4 Review of Systems Narrative: Review of Systems Constitutional: negative Eyes: negative ENT: negative Cardiovascular: negative Respiratory: Productive cough Gastrointestinal: negative : negative Musculoskeletal: negative Skin: negative Neurologic: negative Psych: negative Exam Narrative Exam Narrative: Physical Examination General: alert, awake, cooperative, resting comfortably, no acute distress HEENT: normocephalic, atraumatic; PERRL, EOM intact, conjunctiva normal; no nasal discharge; moist mucous membranes, oral and pharyngeal mucosa normal, tolerating secretions Neck: supple, trachea midline; full ROM Chest: normal to inspection Respiratory: normal respiratory effort, speaking in full sentences, rhonchi anterior lung byrd bilaterally Cardiac: regular rate, regular rhythm, S1S2 intact, no murmurs rubs or gallops GI: abdomen soft, non-tender, non-distended; no palpable mass or hepatosplenomegaly Skin: no lesions, rashes or trauma appreciated Neuro: AAOx3, normal speech, moving all extremities Extremities: No peripheral edema Psych: Appropriate mood and affect Course Vital Signs Vital signs: Vital Signs Temperature 36.9 C 08/20/23 14:21 Pulse 90 08/20/23 14:21 Respiratory Rate 18 08/20/23 14:21 Blood Pressure 130/102 H 08/20/23 14:21 Pulse Oximetry 96 08/20/23 14:21 Temperature 36.9 C 08/20/23 14:21 Temperature Source Temporal Artery Scan 08/20/23 14:21 Pulse 90 08/20/23 14:21 Respiratory Rate 18 08/20/23 14:21 Respiratory Effort Normal, Non-Labored 08/20/23 14:25 Blood Pressure 130/102 H 08/20/23 14:21 Blood Pressure Position Sitting 08/20/23 14:21 Pulse Oximetry 96 08/20/23 14:21 Oxygen Delivery Method Room Air 08/20/23 14:21 Oxygen Flow Rate 0 08/20/23 14:21 Pain Level 7 08/20/23 14:21 Medical Decision Making 78-year-old female presents with productive cough for the last couple of days, 2 weeks of upper respiratory symptoms runny nose cough sneezing, speaking full sentences afebrile nontoxic not hypoxic, rhonchi noted on anterior lung byrd bilaterally, concern for viral upper respiratory illness versus bacterial pneumonia lower suspicion for cardiac etiology or PE or aortic pathology. Trial of dexamethasone albuterol, screening x-ray COVID flu RSV and strep swab. Likely home with close follow-up 16: 10 patient feeling better after albuterol and dexamethasone. X-ray read as negative. Given length of symptomatology and productive cough will provide patient with prescription for azithromycin and Augmentin to be filled only if her symptoms are worsening over the next couple of days. Home care instructions and return precautions given Quality:SDOH Health Related Social Needs: No Data to Display PFSH All Active Problems (Updated 08/20/23 @ 16:10 by Jak Strong MD) Cough (Acute) Thoracic back pain (Acute) Decreased hearing (Acute) Low back pain (Acute) Bronchiectasis (Acute) Vaginal discharge (Acute) Lumbosacral spondylosis without myelopathy (Acute) Breast lump in female (Acute) URI (upper respiratory infection) (Acute) Left knee pain (Acute) Atrophy of vagina (Acute) Obesity, morbid (more than 100 lbs over ideal weight or BMI > 40) (Acute) Anxiety (Chronic) Balance problems (Acute 01/02/15) Diabetes mellitus with diabetic nephropathy (Acute 03/28/14) Gout (Acute) Hiatal hernia (Chronic) 10cm by egd 01/17 Bronchiolectasis (Acute) Synovial cyst of left knee (Chronic 10/23/15) 4 by 3 cm Organic sleep apnea, unspecified (Chronic) Multinodular goiter (Chronic 10/22/16) Hypothyroid (Chronic) Hyperlipidemia (Chronic) Essential hypertension (Chronic 11/30/12) Esophageal reflux (Chronic) GERD/gastritis/HH Depressive disorder (Chronic) recurrent pervasive Medical History Abdominal abscess Abdominal wall abscess Acute gastritis without mention of hemorrhage 10/31/09 Anemia Multifactorial in nature. Partially from chronic disease. Partially from iron deficiency anemia. Partially from renal issues Arthritis of right shoulder region Asthma 05/17/12 Asthma (05/17/12) Balance problem (01/02/15) Bronchitis (04/07/16) Bursitis of left shoulder Chronic cough (11/20/16) Chronic left shoulder pain Degenerative joint disease of right hip Mild Degenerative joint disease of right knee Depo-medrol injection: 01/04/21 Diabetes mellitus with nephropathy 03/28/14 DJD (degenerative joint disease), lumbar DM (diabetes mellitus) 05/11/12 A1C 6.6 03/16 Ear lesion Edema 06/29/06 left leg; neg u/s First degree hemorrhoids 01/02/15 First degree hemorrhoids (01/02/15) Giardiasis Giardiasis Gout secondary to HCTZ Hypoalbuminemia Due to multiple recent surgeries and having open chronic wound Hypokalemia secondary to HCTZ Hypokalemia Iliotibial band syndrome, right leg Impaired renal function disorder 01/29/03 Impaired renal function disorder (01/29/03) Impingement syndrome of left shoulder Incontinence in female (10/19/17) Increased body mass index Irritable 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 ant. and lat. mass ? disc/synovial cyst; marked compression of nerve root; 07/06-Post surgery MRI=scarring left; multi level DJD/ sm. extended disc L2-3; L4-5 Low back pain Neck pain bilateral foraminal narrowing at C5-C6; C4-C-5 s/p back surgery Nuclear sclerosis 05/11/12 Osteoarthritis 05/30/06 right thumb Osteoarthritis (05/30/06) Ovarian mass, right Pelvic floor dysfunction Piriformis syndrome Postoperative stitch abscess Primary fibromyalgia syndrome Primary fibromyalgia syndrome Rash and nonspecific skin eruption 02/01/15 Rupture of left long head biceps tendon Sacroiliac joint dysfunction of right side Shoulder pain MRI 05/05 NEG ROTATOR CUFF TEAR. MILD BRUSITIS-?DEGENERATION OF LABRUM S/P OPERATION rotator cuff repair x 2 Shoulder pain Smoker quit 1982 Smoker SOB (shortness of breath) Social anxiety disorder Strain of gastrocnemius muscle of left lower extremity 12/10/15 subsequent encounter Strain of gastrocnemius muscle of left lower extremity (12/10/15) Tremor Trochanteric bursitis, right hip Depo-Medrol injection: 02/15/2021 Urinary incontinence Vaginal atrophy (01/02/15) Ventral hernia Wound dehiscence Surgical History back surgery (~04/2006) EXCIS SPINAL CORD LESION Bladder Surgery laparoscopic Bladder suspension Cholecystectomy (~1994) 1994 Colonoscopy - MAC (~2003) Extraction of cataract (09/07/12) DR. GARCIA; RIGHT EYE/LEFT EYE H/O bilateral breast reduction surgery 01/09/14 difficult healing History of back surgery 04/30/06 excision of spinal cord lesion History of bilateral breast reduction surgery (01/09/14) History of bilateral ligation of fallopian tubes History of bilateral tubal ligation History of bladder suspension procedure laproscopic History of bladder suspension procedure History of reduction mammoplasty (02/07/14) History of spinal surgery Ligation of fallopian tube (~1976) Reduction mammoplasty (~2013) Rotator Cuff Repair x 2 S/P cataract extraction and insertion of intraocular lens 08/30/12 Dr. Garcia; OD S/P cholecystectomy 03/02/94 Status post cataract extraction and insertion of intraocular lens Status post cholecystectomy Status post rotator cuff repair Family History Mother , age 62 Heart disease Father , age 68 Substance abuse Alcohol abuse Heart disease Asthma Throat cancer Sister Diabetes Alcohol abuse Heart disease Maternal Grandfather No problems noted. Paternal Grandfather No problems noted. Maternal Grandmother , age 78 Diabetes Paternal Grandmother , age 72 Heart disease Sister Diabetes Son Substance abuse Alcohol abuse Essential hypertension Asthma Daughter Depression Social History (Updated 08/19/23 @ 13:56 by La Fernández) Smoking/Tobacco Use Status: Former Tobacco Use tobacco type: cigarettes Quit Date: 12/31/82 Tobacco: How many years used: 20 Quit status: has quit before Second Hand Exposure: Yes Smoking risk assessment performed?: Yes Alcohol Intake: current Alcohol Intake frequency: a few times a month Alcohol type: wine Drug use: Never Substance use type: does not use Adopted: No Caregiver/Support person: No Household members: spouse Housing: house Number of Children: 2 number of grandchildren: 3 Communication Needs: Corrective Lenses Do you need help understanding health information?: Rarely current occupation: Retired Pets and animals: No Sexually active: No Do you think of yourself as: straight/heterosexual Current gender identity: female What is your relationship status?: How often do you talk on the phone with friends or family?: three or more times per week How often do you get together with friends or relatives?: three or more times per week How often do you attend denominational or shinto services?: 4 or more times per year Do you belong to any clubs or organized social groups?: no Panel score (0-1 are the most socially isolated patients): 3 What type of physical activity do you participate in: none and other Details: Pulmonary Rehab Duration: 45-60 minutes/day Frequency: 1-2 times per week Subha/Orthodoxy: Temple Special subha needs: No Agree to transfusion: No Seatbelt use: always Helmet use: No Drive intox or ride w/intox pick up driver: No Working smoke detector in home: No Carbon monox detector in home: No Firearms in home: Yes Firearms unloaded and locked: Yes Do you feel safe at home: Yes Do you feel safe in your relationship?: Yes Victim of physical abuse: No Victim of emotional abuse: No Victim of sexual abuse: No Would you like helpful sources: No
[2023-08-20] MEDS: Albuterol HFA 8 GM 60 PUFF INH IH (14:51)
[2023-08-20] MEDS: Dexamethasone 10 MG/ML VIAL PO (14:51)
[2023-08-20 14:58] VITALS: BP 130/102; PULSE 90; RESP 18; TEMP 36.9; O2SAT 96
[2023-08-20 15:38] LABS: COVID-19 PCR Negative (Negative); Influenza A PCR Negative (Negative); Influenza B PCR Negative (Negative); RSV PCR Negative (Negative)
[2023-08-20 15:44] LABS: Source Nasopharynx
== END 2023-08-20 16:18 | disposition home or self-care (01) ==
PROVIDERS: Emergency Provider Emergency Medicine; PCP Family Medicine
DX: J02.9 Acute pharyngitis, unspecified (principal); R05.9 Cough, unspecified; E11.9 Type 2 diabetes mellitus without complications; Z87.891 Personal history of nicotine dependence
CPT/HCPCS: 87637; 87880; 99284; 71046; 87081; 99283; J1100

== ENCOUNTER 2023-08-27 08:57 | Outpatient (RCR) | payer SELFPAY ==
[2023-08-01 00:07] VITALS: BP 129/70; PULSE 71
[2023-08-04 09:22] VITALS: BP 145/73; PULSE 64
[2023-08-06 09:14] VITALS: BP 126/79; PULSE 66
--- OUTSIDE RECORDS SUMMARY | 2023-08-11 09:00 | XMS_ITS | Patient Health Record ---
Author Name Unknown [facility] Address [address] [place] [address] Care Team Providers Care Eclectic Doctor Name Role Phone Evan Ballesteros Unavailable [phone] REASON FOR REFERRAL No Information PLAN OF TREATMENT No Information Insurance Providers Payer Name Payer Address Payer Phone Subscriber Number Group Number Insured Name Patient Relationship to Insured Coverage Start Date Coverage End Date MEDICARE [address] [place], [place] [id number] OLIVER NEWELL Self - patient is the insured S-[employer] [address] [place] [id number] [phone] MAIN [id number] OLIVER NEWELL Self - patient is [place] [address] OLIVER NEWELL Self - patient is the insured
[2023-08-11 09:08] VITALS: BP 158/73; PULSE 63
[2023-08-18 09:16] VITALS: BP 131/71; PULSE 72
[2023-08-27 09:14] VITALS: BP 108/67; PULSE 72
== END 2023-08-30 23:59 | disposition home or self-care (01) ==
LOC: CR 08:57
PROVIDERS: PCP Family Medicine; Visit Provider Internal Medicine Cardiovascular Disease
DX: R69 Illness, unspecified (principal)

== ENCOUNTER 2023-09-24 09:00 | Outpatient (RCR) | payer SELFPAY ==
[2023-08-31 00:17] VITALS: BP 129/70; PULSE 71
[2023-09-01 09:52] VITALS: BP 137/71; PULSE 70
[2023-09-08 08:53] VITALS: BP 127/68; PULSE 69; O2SAT 98
[2023-09-15 09:23] VITALS: BP 148/72; PULSE 66
[2023-09-17 12:57] VITALS: BP 156/70; PULSE 67
[2023-09-22 09:05] VITALS: BP 146/77; PULSE 67
[2023-09-24 09:00] VITALS: BP 141/76; PULSE 69
== END 2023-09-30 23:59 | disposition home or self-care (01) ==
LOC: CR 09:00
PROVIDERS: PCP Family Medicine; Visit Provider Internal Medicine Cardiovascular Disease
DX: R69 Illness, unspecified (principal)

== ENCOUNTER 2023-10-29 09:00 | Outpatient (RCR) | payer SELFPAY ==
[2023-10-01 00:11] VITALS: BP 129/70; PULSE 71
[2023-10-01 08:58] VITALS: BP 140/69; PULSE 69
[2023-10-06 09:18] VITALS: BP 133/70; PULSE 62
[2023-10-08 10:20] VITALS: BP 139/77; PULSE 64
[2023-10-13 09:18] VITALS: BP 141/72; PULSE 61
[2023-10-20 10:06] VITALS: BP 159/72; PULSE 66
[2023-10-22 08:56] VITALS: BP 143/68; PULSE 67
[2023-10-27 09:11] VITALS: BP 144/72; PULSE 66
[2023-10-29 09:08] VITALS: BP 130/70; PULSE 71
== END 2023-10-31 23:59 | disposition home or self-care (01) ==
LOC: CR 09:00
PROVIDERS: PCP Family Medicine; Visit Provider Internal Medicine Cardiovascular Disease
DX: R69 Illness, unspecified (principal)

== ENCOUNTER 2023-11-26 08:56 | Outpatient (RCR) | payer SELFPAY ==
[2023-11-01 00:23] VITALS: BP 129/70; PULSE 71
[2023-11-03 09:22] VITALS: BP 140/63; PULSE 60
[2023-11-05 09:13] VITALS: BP 132/66; PULSE 68; O2SAT 97
[2023-11-10 09:10] VITALS: BP 170/68; PULSE 70
[2023-11-12 09:20] VITALS: BP 130/74; PULSE 71
[2023-11-17 09:16] VITALS: BP 144/71; PULSE 67
[2023-11-19 09:20] VITALS: BP 133/76; PULSE 68
[2023-11-24 10:23] VITALS: BP 147/76; PULSE 66
[2023-11-26 08:58] VITALS: BP 168/86; PULSE 73
== END 2023-11-30 23:59 | disposition home or self-care (01) ==
LOC: CR 08:56
PROVIDERS: PCP Family Medicine; Visit Provider Internal Medicine Cardiovascular Disease
DX: R69 Illness, unspecified (principal)

== ENCOUNTER → 2023-12-15 13:25 | Outpatient (BNVA) | payer MEDICARE, SELFPAY | PROVIDERS: PCP Family Medicine; Referring Provider Family Medicine; Visit Provider Surgery | DX: K43.2 Incisional hernia without obstruction or gangrene (principal) | CPT/HCPCS: 99214 ==

== ENCOUNTER 2023-12-30 00:48 | Outpatient (CLI) | payer MEDICARE, SELFPAY ==
--- NOTE | 2023-12-30 07:00 | DI.CT_ITS ---
Exam(s) CT ABDOMEN PELVIS W EXAM: CT ABDOMEN PELVIS W CLINICAL HISTORY: Surgical planning for massive incisional hernia,K43.2. TECHNIQUE: Imaging Protocol: Axial computed tomography images with coronal and sagittal reformatted images were created and reviewed CONTRAST MATERIAL: Intravenous: Omnipaque 350 Contrast volume:85 ml Oral: yes / COMPARISON: CT CT ABDOMEN PELVIS W from 08/01/2019 FINDINGS: ABDOMEN and PELVIS: Lung Bases: No acute findings. Large hiatal hernia. Liver: Normal density. No suspicious mass. Gallbladder and biliary tract: Status post cholecystectomy. No biliary dilation. Pancreas: Normal density. No abnormal calcifications or inflammatory process. No evidence of mass. Spleen: Normal. Kidneys: Normal size, contour and axis. No radiodense stones. No obstructive uropathy. No suspicious masses seen. Adrenal glands: No masses seen. Vasculature: Abdominal aorta non-dilated. Atherosclerotic changes. Soft tissues: Large defect in the midline anterior abdominal wall with wide defect on measuring 8 x 1 0 cm. There is herniation the cecum, terminal ileum as well as portion of the transverse colon. Add itional hernia seen directly beneath this level, containing multiple loops of nonobstructed small bow el. Bladder: No gross wall thickening. No calculi.No focal mass. Bowel: No obstruction. No bowel wall thickening. Appendix normal. Mild diverticulosis in the sigmo id and descending colon. Peritoneal cavity: No ascites. No focal collection. No mesenteric inflammatory response. Bones: Advanced degenerative changes in the lumbar spine. Reproductive organs: Status post hysterectomy. Pessary. Lymph nodes: No pathologically enlarged lymph nodes. IMPRESSION:: Two large anterior abdominal wall hernias containing colon and small bowel. No evidenc e of obstruction. RADIATION DOSE DELIVERED: 422.86mGy.cm Total DLP DATA REPOSITORY: All CT scans at this facility are submitted to the National Radiology Data Registry (NRDR) Dose Index Registry (DIR) with the [employer] (A[employer]). RADIATION OPTIMIZATION: All CT scans at this facility use at least one of these dose optimization te chniques: automated exposure control; mA and/or kV adjustment per patient size (includes targeted exa ms where dose is matched to clinical indication); or iterative reconstruction.
[2023-12-30] MEDS: Barium Sulfate 2% W/V-Berry Smoothie 450 ML BTL PO ×2 (08:18→08:19)
[2023-12-30 10:02] LABS: Albumin 3.5 g/dL (3.4-5.0); Anion Gap 11.3 mmol/L (3-11); BUN 20 mg/dL (7-18); CO2 23.7 mmol/L (21.0-32.0); CREATININE 0.9 mg/dL (0.55-1.02); Calcium 9.6 mg/dL (8.5-10.1); Chloride 110 mmol/L (98-107); Estimated GFR 65.84 (mL/min/1.73m2); Glucose 93 mg/dL (74-106); Potassium 4.1 mmol/L (3.5-5.1); Sodium 145 mmol/L (136-145)
[2023-12-30] MEDS: Normal Saline - Diluent 50 ML VIAL IJ (10:23)
[2023-12-30] MEDS: Omnipaque 350 MG/ML 500 ML BTL-Imaging package 85 ML IJ (10:23)
== END 2023-12-30 01:08 ==
LOC: DI 00:48
PROVIDERS: PCP Family Medicine; Visit Provider Surgery
DX: K43.2 Incisional hernia without obstruction or gangrene (principal); Z01.818 Encounter for other preprocedural examination
CPT/HCPCS: 80048; 74177; 82040

== ENCOUNTER 2023-12-31 08:59 | Outpatient (RCR) | payer SELFPAY ==
[2023-12-01 11:46] VITALS: BP 143/70; PULSE 62
[2023-12-03 08:55] VITALS: BP 146/68; PULSE 64; O2SAT 98
[2023-12-08 09:06] VITALS: BP 127/71; PULSE 64
[2023-12-10 09:32] VITALS: BP 141/82; PULSE 66
[2023-12-15 09:17] VITALS: BP 151/63; PULSE 65
[2023-12-24 08:55] VITALS: BP 164/80; PULSE 67
[2023-12-29 09:03] VITALS: BP 160/84; PULSE 70
== END 2023-12-31 23:59 | disposition home or self-care (01) ==
LOC: CR 08:59
PROVIDERS: PCP Family Medicine; Visit Provider Internal Medicine Cardiovascular Disease
DX: R69 Illness, unspecified (principal)

== ENCOUNTER → 2024-01-04 13:14 | Outpatient (BNVA) | payer MEDICARE, SELFPAY | PROVIDERS: PCP Family Medicine; Referring Provider Family Medicine; Visit Provider Physician Assistant Surgical | DX: J45.909 Unspecified asthma, uncomplicated (principal); J47.9 Bronchiectasis, uncomplicated | CPT/HCPCS: 99214 ==

== ENCOUNTER 2024-01-19 09:27 | Outpatient (RCR) | payer SELFPAY ==
[2024-01-01 00:35] VITALS: BP 160/84; PULSE 70
[2024-01-12 08:57] VITALS: BP 162/72; PULSE 62
[2024-01-14 09:05] VITALS: BP 135/78; PULSE 68
[2024-01-19 09:34] VITALS: BP 118/67; PULSE 70
== END 2024-01-30 23:59 | disposition home or self-care (01) ==
LOC: CR 09:27
PROVIDERS: PCP Family Medicine; Visit Provider Internal Medicine Cardiovascular Disease
DX: R69 Illness, unspecified (principal)

== ENCOUNTER 2024-01-20 15:35 | Outpatient (CLI) | payer MEDICARE, SELFPAY ==
--- NOTE | 2024-01-20 06:00 | DI.RAD_ITS ---
Exam(s) XR PAIN CLINIC LUMBAR SP 2V EXAM: XR PAIN CLINIC LUMBAR SP 2V CLINICAL HISTORY: DX: Lumbar Spondylosis TECHNIQUE: 2D and realtime digital imaging was performed. Radiologist not present. CONTRAST MATERIAL: None. COMPARISON: No exams were available for comparison FINDINGS: Fluoroscopy was provided for pain management therapy. Please refer to procedure report or details. Radiation Exposure Index: Ka,r=7.9 mGy IMPRESSION: As above. RADIATION DOSE DELIVERED:
[2024-01-20 15:52] VITALS: BP 140/99; PULSE 84; RESP 18; TEMP 36.7; O2SAT 98
--- NOTE | 2024-01-20 15:53 | PDOC.PAIN ---
Date of service: 01/20/24 Time of Service: 16:41 Pain Managment Procedure Note Procedure Note Procedure Note: Lumbar Medial Branch Block ? Location: Bilateral Medial Branches ? Levels: L3,4,5? (L4-5, L5-S1 FACET) ? Pre-procedure Diagnosis: M47.817 Spondylosis without myelopathy or radiculopathy, lumbosacral region M47.816 Spondylosis without myelopathy or radiculopathy, lumbar region ? Post-procedure Diagnosis:? The same as above ? Sedation: NONE? Estimated blood loss:? less than 2 cc ? Surgeon:? Moris Riggs MD COMMENT: PRE PROCEDURE PAIN SCORE: 6/10 ? Procedure Detail:? The procedure and potential risks were explained to the patient and informed written consent was obtained. The patient was escorted to the procedure room and placed in the prone position. Pillows were utilized for proper positioning and comfort.? Time out was performed in procedure room with nursing staff confirming the patient's identity, procedure to be performed, allergies, and any blood thinning or anti-platelet medications. The patient's lower back was prepped with chlorhexidine and draped in a sterile fashion. Sterile technique was maintained throughout the procedure.? Sterile gloves were used, a face mask was worn, and new single dose vials of all medications were used with the top being swabbed with alcohol and given time to dry prior to withdrawal of medication.? A left AND right-sided oblique fluoroscopic view was obtained, with visualization of the: ?RIGHT and LEFT L3,4 and DORSAL RAMUS L5 AT SACRAL ALA ? junction of the transverse process and superior articular process. Lidocaine 1% was used to anesthetize the skin. A 22-gauge Quincke needle was advanced along the superior margin of the transverse process and lateral to the articular process.? It was directed inferiorly and medially so that the tip struck the junction of the base of the transverse process and the superior articular process. The needle was then walked over the superior aspect of the transverse process and advanced slightly along the course of the [Medial Branch] medial branch nerves. Proper placement was verified in A/P, oblique and lateral views under fluoroscopy. At this location, following negative aspiration, 0.5cc 0.5% bupivacaine was injected.? The patient tolerated the procedure well and was transported to the recovery area for observation and discharge instructions. Permanent images saved and recorded. Follow-up:? The patient will return in 2 weeks for confirmatory LMBBs if they? meet the criteria from today's procedure lasting for at least 2 hours.? COMMENT:Pain went from 6/10 to 0/10. Before the patient left patient had greater than 100% pain relief.
[2024-01-20 16:17] VITALS: O2SAT 96
[2024-01-20 16:20] VITALS: O2SAT 99
[2024-01-20 16:30] VITALS: O2SAT 100
[2024-01-20] MEDS: Bupivacaine 0.5% Pres-Free 10 ML VIAL IJ (16:43)
[2024-01-20] MEDS: Nerve Block Tray 1 EACH MC (16:44)
== END 2024-01-20 15:36 | disposition home or self-care (01) ==
LOC: PC 15:36
PROVIDERS: PCP Family Medicine; Visit Provider Anesthesiology Pain Medicine
DX: M54.50 Low back pain, unspecified (principal); M47.817 Spondylosis without myelopathy or radiculopathy, lumbosacral region; M47.816 Spondylosis without myelopathy or radiculopathy, lumbar region
CPT/HCPCS: 00123; 64493; 64494; 72100; J0665

== ENCOUNTER 2024-01-26 08:21 | Outpatient (CLI) | payer MEDICARE, SELFPAY ==
[2024-01-26 13:04] LABS: ALT 23 U/L (14-59); AST 17 U/L (15-37); Albumin 3.6 g/dL (3.4-5.0); Alkaline Phosphatase 141 U/L (46-116); BUN 24 mg/dL (7-18); Bilirubin, Total 0.32 mg/dL (0.2-1.0); Calcium 9.2 mg/dL (8.5-10.1); Chloride 109 mmol/L (98-107); Estimated GFR 58.02 (mL/min/1.73m2); Glucose 102 mg/dL (74-106); Potassium 4.5 mmol/L (3.5-5.1); Sodium 142 mmol/L (136-145); TSH (W/Ref FT4) 2.31 uIU/mL (0.36-3.74); Total Protein 7.1 g/dL (6.4-8.2)
[2024-01-26 13:13] LABS: Hemoglobin A1C 5.2 % (<5.7)
== END 2024-01-26 08:22 | disposition home or self-care (01) ==
LOC: LOS 08:22
PROVIDERS: PCP Family Medicine; Referring Provider Family Medicine; Visit Provider Family Medicine
DX: E11.9 Type 2 diabetes mellitus without complications (principal); E03.9 Hypothyroidism, unspecified; I10 Essential (primary) hypertension; N76.0 Acute vaginitis
CPT/HCPCS: 36415; 80053; 83036; 84443; 87480; 87510; 87660

== ENCOUNTER 2024-02-03 11:11 | Outpatient (CLI) | payer MEDICARE, SELFPAY ==
--- NOTE | 2024-02-03 11:00 | DI.RAD_ITS ---
Exam(s) XR LUMBAR SPINE FLEX/EXT ONLY EXAM: XR LUMBAR SPINE FLEX/EXT ONLY INDICATION: Bilateral L5 pars defects and LBP M54.50 LOW BACK PAIN M43.06 SPONDYLOLYSIS. COMPARISON: CR XR LUMBAR SPINE COMPLETE from 08/05/2023 TECHNIQUE: 2D digital imaging was performed. Two images were obtained. Lateral flexion and extensi on views were obtained. FINDINGS: The degree of anterolisthesis of L5 on S1 is stable with both flexion and extension views. There is again seen disc space narrowing at T12-L1 through L3-L4. T12 through L4. Facet arthropathy is prese nt particularly at L4-5 and L5-S1. Extensive atherosclerotic calcification is present. Endplate ost eophytes are seen throughout the lumbar spine particularly from L1 through L4. Stable mild retrolist hesis of L1 on L2, L2 on L3 and L3 on L4. IMPRESSION: 1. Stable marked degenerative changes seen in the lumbar spine. 2. Stable alignment of the lumbar spine with flexion and extension. DATA REPOSITORY: RADIATION DOSE DELIVERED:
== END 2024-02-03 11:31 ==
LOC: DI 11:12
PROVIDERS: PCP Family Medicine; Visit Provider Preventive Medicine Occupational Medicine
DX: M43.06 Spondylolysis, lumbar region
CPT/HCPCS: 72120

== ENCOUNTER 2024-02-11 09:27 | Outpatient (RCR) | payer SELFPAY ==
[2024-01-31 00:12] VITALS: BP 160/84; PULSE 70
[2024-02-04 08:59] VITALS: BP 148/67; PULSE 64
[2024-02-09 09:32] VITALS: BP 141/68; PULSE 61
[2024-02-11 12:35] VITALS: BP 135/80; PULSE 67
== END 2024-03-01 23:59 | disposition home or self-care (01) ==
LOC: CR 09:27
PROVIDERS: PCP Family Medicine; Visit Provider Internal Medicine Cardiovascular Disease
DX: R69 Illness, unspecified (principal)

== ENCOUNTER 2024-03-29 09:12 | Outpatient (RCR) | payer SELFPAY ==
[2024-03-02 00:22] VITALS: BP 160/84; PULSE 70
[2024-03-17 09:36] VITALS: BP 159/84; PULSE 73
[2024-03-22 09:50] VITALS: BP 129/67; PULSE 69
[2024-03-24 09:08] VITALS: BP 157/78; PULSE 72
[2024-03-29 09:16] VITALS: BP 127/72; PULSE 64
== END 2024-04-01 23:59 | disposition home or self-care (01) ==
LOC: CR 09:12
PROVIDERS: PCP Family Medicine; Visit Provider Internal Medicine Cardiovascular Disease
DX: R69 Illness, unspecified (principal)

== ENCOUNTER 2024-04-07 09:45 | Outpatient (CLI) | payer MEDICARE, SELFPAY ==
--- NOTE | 2024-04-07 06:00 | DI.RAD_ITS ---
Exam(s) XR PAIN CLINIC LUMBAR SP 2V EXAM: XR PAIN CLINIC LUMBAR SP 2V CLINICAL HISTORY: Dx: pars defect of the lumbar spine TECHNIQUE: 2D and realtime digital imaging was performed. CONTRAST MATERIAL: Refer to procedure report. COMPARISON: No exams were available for comparison FINDINGS: Fluoroscopy was provided for Dr. Garcia during the performance of a bilateral pars block. Please refe r to the procedure report for complete details. Ka,r=7.63 mGy IMPRESSION: RADIATION DOSE DELIVERED: 0.0 0.0 0
[2024-04-07 09:55] VITALS: BP 133/73; PULSE 71; RESP 20; TEMP 36.6; O2SAT 99
[2024-04-07 10:23] VITALS: PULSE 74; RESP 13; O2SAT 98
[2024-04-07 10:24] VITALS: BP 158/80; PULSE 72; RESP 17; O2SAT 98
[2024-04-07 10:30] VITALS: BP 131/87; PULSE 75; RESP 20; O2SAT 97
[2024-04-07 10:31] VITALS: PULSE 71; PULSE 72; RESP 18; O2SAT 97
--- NOTE | 2024-04-07 10:34 | PDOC.PAIN ---
Date of service: 04/07/24 Time of Service: 10:34 Pain Managment Procedure Note Procedure Note Procedure Note: PROCEDURE NOTE Bilateral Lumbar L5 Pars Interacticularis Blocks Date of Service: April 07, 2024 Patient: Kaycee Miles Provider: Javier Garcia DO, MPH Kaycee Miles has been referred to the [facility] for lumbar pars blocks. 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 Rajat was interviewed and the medical records were reviewed. There were no medical, pharmacologic, radiographic or other structural contraindications to attempting fluoroscopically guided local anesthetic lumbar pars blocks at bilateral L5. Risks and potential side effects were discussed. I also discussed the potential benefit(s) of the procedure with Kaycee, and voiced concerns were addressed. After Kaycee was completely informed about the procedure, the printed consent form was signed. A standard time-out procedure was performed. Kaycee was placed in the prone position on the fluoroscopy table. Automated blood pressure cuff and pulse oximeter were applied. The skin entry points for approaching the anatomic target points of the pars defects of bilateral L5 were identified with fluoroscopy and marked. The skin at the target site area was thoroughly prepared with Chlorhexadine. The skin was then draped. Next, a 22 gauge 3.5 spinal needle was placed under fluoroscopic guidance down on to the target point at the bilateral L5. Position was confirmed in A/P views. Aspiration revealed no blood or clear fluid. Next, 1 ml of omnipaque 240 was injected at each level. No contrast following a vascular or neural pattern was visualized under continuous fluoroscopy. Next, 0.25 ml of preservative-free 2% Lidocaine was injected at each level. There was no unusual discomfort expressed by Kaycee. The needles were withdrawn without difficulty. (48 mls of Omnipaque was wasted) Kaycee was observed and was without hemodynamic, neurologic, or allergic reactions.? Fluoroscopic images were digitally archived. Provacative testing Left side Right Side Directly before the block - low back pain VAS (0-10) = 9/10 VAS (0-10) = 9/10 Five minutes after the block - low back pain VAS (0-10) = 0/10 VAS (0-10) = 0/10 Percentage relief obtained with this diagnostic block 100% 100% Any improved physical functioning directly after the blocks? Able to move around with ease. She still had a little pain to the right anterior thigh. Follow up plans and appointments were discussed with Kaycee. Kaycee was instructed to keep careful note of how the usual pain was modified by these injections. Specifically, to keep a pain diary for the next 2 hours using a numeric pain scale of 0-10 and report these results. Post procedure instruction was given as documented in the nursing documentation and having met discharge criteria, the patient was [facility]. Her results from this procedure will help determine if surgery would be helpful for her. COMMENTS: No apparent complications. Post-procedure low back pain: VAS= 0/10 Kaycee will call back with 0-4 hour post-procedure pain scores. I personally performed the entire procedure. JAVIER GARCIA DO, MPH ABPM&R-subspecialty board certification in Pain Medicine [facility] [facility]
[2024-04-07] MEDS: Nerve Block Tray 1 EACH MC (10:40)
[2024-04-07] MEDS: Lidocaine 2% Pres-Free 5 ML VIAL IJ (10:40)
[2024-04-07] MEDS: Omnipaque 240 MG/ML 50 ML BTL IJ (10:41)
[2024-04-07] MEDS: methylPREDNISolone ACETATE 40 MG/ML VIAL IJ (10:41)
== END 2024-04-07 09:46 | disposition home or self-care (01) ==
LOC: PC 09:45
PROVIDERS: PCP Family Medicine; Visit Provider Preventive Medicine Occupational Medicine
DX: M54.50 Low back pain, unspecified (principal); M47.897 Other spondylosis, lumbosacral region
CPT/HCPCS: 64493; 72100; J1010; Q9967

== ENCOUNTER 2024-04-26 09:15 | Outpatient (RCR) | payer SELFPAY ==
[2024-04-05 09:17] VITALS: BP 129/75; PULSE 73
[2024-04-12 09:26] VITALS: BP 132/79; PULSE 68
[2024-04-19 09:24] VITALS: BP 150/67; PULSE 67
[2024-04-21 09:02] VITALS: BP 127/78; PULSE 69
[2024-04-26 09:43] VITALS: BP 145/70; PULSE 70
== END 2024-04-29 23:59 | disposition home or self-care (01) ==
LOC: CR 09:15
PROVIDERS: PCP Family Medicine; Visit Provider Internal Medicine Cardiovascular Disease
DX: R69 Illness, unspecified (principal)

== ENCOUNTER 2024-04-28 21:20 | Outpatient (REF) | payer MEDICARE, SELFPAY ==
[2024-04-28 21:20] LABS: Bilirubin Negative (Negative); Blood Negative (Negative); Clarity Clear (Clear); Glucose Negative (Negative); Ketones Negative (Negative); Leukocyte Esterase Negative (Negative); Nitrite Negative (Negative); Urobilinogen 0.2 mg/dL (Up to 0.2); pH 6.5 (5-8)
== END 2024-04-28 21:21 | disposition home or self-care (01) ==
LOC: LBN 21:20
PROVIDERS: PCP Family Medicine; Visit Provider Family Medicine
DX: R10.9 Unspecified abdominal pain (principal); N95.2 Postmenopausal atrophic vaginitis
CPT/HCPCS: 81003

== ENCOUNTER 2024-05-26 08:57 | Outpatient (RCR) | payer SELFPAY ==
[2024-04-30 00:20] VITALS: BP 145/70; PULSE 70
[2024-05-03 09:08] VITALS: BP 144/73; PULSE 70
[2024-05-05 09:18] VITALS: BP 139/78; PULSE 69
[2024-05-10 09:36] VITALS: BP 132/73; PULSE 68
[2024-05-17 09:34] VITALS: BP 122/76; PULSE 66
[2024-05-19 09:15] VITALS: BP 151/73; PULSE 70
[2024-05-24 09:05] VITALS: BP 129/71; PULSE 69
[2024-05-26 09:10] VITALS: BP 117/71; PULSE 70; O2SAT 97
== END 2024-05-30 23:59 | disposition home or self-care (01) ==
LOC: CR 08:57
PROVIDERS: PCP Family Medicine; Visit Provider Internal Medicine Cardiovascular Disease
DX: R69 Illness, unspecified (principal)

== ENCOUNTER 2024-05-27 00:46 | Outpatient (CLI) | payer MEDICARE, SELFPAY ==
--- NOTE | 2024-05-27 07:15 | DI.MRI_ITS ---
Exam(s) MR LUMBAR SPINE WO EXAM: MR LUMBAR SPINE WO CLINICAL HISTORY: low back pain,worsening;failed PT, lumbar radicular pain,m54.50,m43.06,. TECHNIQUE: Multiplanar multisequence MRI of the Lumbar spine was performed. COMPARISON: MR MR LUMBAR SPINE WO from 05/01/[address] ABDOMEN PELVIS W from 12/30/2023 CR XR LUMBAR SPINE FLEX/EXT ONLY from 02/03/2024 FINDINGS: Conus medullaris is at normal level. There is no evidence of conus mass nor subjacent clumping of in trathecal nerve roots to suggest arachnoiditis. The distal thecal sac appears unremarkable.There is no evidence of Tarlov intrasacral cysts nor other significant findings within the sacral canal Bones:There are no fractures nor ominous osseous lesions in the lumbar vertebral bodies and visualize d sacrum. With respect to the individual levels... T12-L1: Unremarkable L1-2: There is advanced disc space narrowing on the right side of the disc space and moderate amount of narrowing on the left side of the disc space. There are Modic type 2 sub endplate fatty marrow ch anges on the right side at this level, similar to previous. There is again noted posterior bony ridg ing and an element of mild retrolisthesis of L1 upon L2, unchanged. There is annular bulging but wit hout a distinct focal disc herniation. Central canal dimensions lower normal. No foraminal stenosis evident on the left side. There is mild foraminal stenosis on the right sidemoderate facet arthropa thy evident. L2-3: This level also exhibits advanced disc space narrowing. Anterior osteophytes. Posterior bony ridging noted there is no distinct focal disc herniation but there is moderate central spinal canal s tenosis related to the annular bulging, short AP dimensions the pedicles and posterior bony ridging w ith mild retrolisthesis of L3 upon L4 at this level noted. There is mild-moderate central spinal can al stenosis at this level. There is mild foraminal stenosis on the right side. Lesser foraminal dannielle nosis seen on the right side at this level.Significant bilateral facet arthropathy. L3-4: This level again exhibits advanced asymmetric disc space narrowing on the left side; less so on the right side. There is also some posterior bony ridging at this level and annular bulging. There is a superimposed posterolateral left disc protrusion at this level which indents the anterior theca l sac and exists within the left lateral recess at this level, similar to previous. There is mild ce ntral canal stenosis. There is significant foraminal stenosis on the left side at this level. Only milder foraminal stenosis on the right side. Advanced facet arthropathy again noted. L4-5: This level exhibits relatively preserved disc height. No listhesis. No Modic-type sub endplat e marrow signal changes. Posteriorly there are no disc herniations. Mild central canal stenosis not ed. There is mild bilateral foraminal stenosis also evident related to short AP dimensions the pedic les and advanced facet arthropathy. L5-S1: This level again exhibits relatively preserved disc height but again noted is anterolisthesis L5 upon S1 which appears to be related to pars defects this results in increased AP dimension of the central canal. There are advanced degenerative changes in both facet joints. Minimal if any signifi cant foraminal narrowing. Soft tissues: Atherosclerotic involvement of the abdominal aorta with mild aneurysmal dilatation pos teriorly and just above the aortic bifurcation. IMPRESSION: 1. Multilevel findings as described above but with minimal if any significant change compared to prio r MRI scan of April 2021. DATA REPOSITORY:
== END 2024-05-27 01:06 ==
LOC: DI 00:46
PROVIDERS: PCP Family Medicine; Visit Provider Family Medicine
DX: M43.06 Spondylolysis, lumbar region
CPT/HCPCS: 72148

== ENCOUNTER 2024-06-17 00:06 | Outpatient (CLI) | payer MEDICARE, SELFPAY ==
--- NOTE | 2024-06-17 08:00 | DI.CT_ITS ---
Exam(s) CT CHEST WO EXAM: CT CHEST WO CLINICAL HISTORY: persistent cough,bronchiolectasis, j47.9,r05.9. TECHNIQUE: Imaging protocol: Axial computed tomography images were obtained and coronal and sagittal reformatted images were created and reviewed. Computer aided detection (CAD) was utilized. CONTRAST MATERIAL: Noncontrast COMPARISON: CT CHEST WITH CONTRAST from 11/24/2016 CR XR CHEST 2V PA LATERAL from 08/20/2023 FINDINGS: Pulmonary parenchyma: No consolidation. No suspicious nodules. Stable tiny nodule peripherally in th e anterior right lower lobe. Bibasilar scarring/atelectasis. Interstitial changes: None. Emphysema: Mild centrilobular emphysema throughout. Mild paraseptal emphysema at the upper lobes. Tracheobronchial tree: Mild diffuse bronchiectasis, greatest in the right lower lobe. Mild diffuse b ilateral lower lobe bronchial wall thickening. Some mucous plugging of a few peripheral bronchi. Pleura: No effusion or pneumothorax. Heart: The heart is mildly dilated. The coronary arteries show moderate calcifications. Aorta: Thoracic aorta non-dilated. Moderate atherosclerotic changes. Mediastinum: Moderate to large size hiatal hernia. No enlarged lymph nodes. Bones: Degenerative changes are seen. No evidence of compression fracture. Upper abdomen: Unremarkable. Soft tissues: Benign calcifications in the left breast. IMPRESSION: Bronchiectasis greater in the right lower lobe. Bilateral lower lobe bronchial wall thickening and m ild mucous plugging. RADIATION DOSE DELIVERED: Total DLP Total DLP DATA REPOSITORY: All CT scans at this facility are submitted to the National Radiology Data Registry (NRDR) Dose Index Registry (DIR) with the [employer] (ACR). RADIATION OPTIMIZATION: All CT scans at this facility use at least one of these dose optimization te chniques: automated exposure control; mA and/or kV adjustment per patient size (includes targeted exa ms where dose is matched to clinical indication); or iterative reconstruction.
== END 2024-06-17 00:26 ==
LOC: DI 00:06
PROVIDERS: PCP Family Medicine; Visit Provider Family Medicine
DX: J47.9 Bronchiectasis, uncomplicated (principal); R05.9 Cough, unspecified
CPT/HCPCS: 71250

== ENCOUNTER 2024-06-28 09:06 | Outpatient (RCR) | payer SELFPAY ==
[2024-05-31 00:20] VITALS: BP 145/70; PULSE 70
[2024-05-31 09:31] VITALS: BP 130/71; PULSE 65
[2024-06-07 09:04] VITALS: BP 129/73; PULSE 63
[2024-06-14 09:43] VITALS: BP 143/75; PULSE 67
[2024-06-16 09:41] VITALS: BP 161/80; PULSE 65
[2024-06-21 09:15] VITALS: BP 144/79; PULSE 66
[2024-06-23 09:10] VITALS: BP 151/76; PULSE 71
[2024-06-28 09:11] VITALS: BP 150/76; PULSE 66
== END 2024-06-29 23:59 | disposition home or self-care (01) ==
LOC: CR 09:06
PROVIDERS: PCP Family Medicine; Visit Provider Internal Medicine Cardiovascular Disease
DX: R69 Illness, unspecified (principal)

== ENCOUNTER → 2024-07-04 10:38 | Outpatient (BNVA) | payer MEDICARE, SELFPAY | PROVIDERS: PCP Family Medicine; Referring Provider Family Medicine; Visit Provider Physician Assistant Surgical | DX: J45.909 Unspecified asthma, uncomplicated (principal); J47.9 Bronchiectasis, uncomplicated | CPT/HCPCS: 99214; 94618; 99205 ==

== ENCOUNTER 2024-07-25 00:31 | Outpatient (CLI) | payer MEDICARE, SELFPAY ==
[2024-07-25] MEDS: Methacholine 100 MG VIAL IH (12:05)
[2024-07-25] MEDS: Inhaler, Assist Device 1 EACH MC (12:05)
[2024-07-25] MEDS: Albuterol HFA 18 GM 200 PUFF INH IH (12:06)
--- NOTE | 2024-08-21 09:03 | W.PFT ---
Date of service: 07/25/24 Time of Service: 10:03 Pulmonary Function Test Result Indications: Asthma Interpretation Spirometry: No airflow limitation at baseline. There was a 3% decrease in FEV1 with administration of 16.0mg/mL methacholines. Lung Volumes: Normal lung volumes Diffusion Capacity: Decreased diffusion Airway Pressure: Normal airways resistance Impression Reduced diffusion with a negative methacholine. Clinical Correlation therefore is recommended.
== END 2024-07-25 00:32 | disposition home or self-care (01) ==
LOC: RT 00:31
PROVIDERS: PCP Family Medicine; Visit Provider Student in an Organized Health Care Education/Training Program
DX: J45.909 Unspecified asthma, uncomplicated (principal)
CPT/HCPCS: 94070; 94726; 94729; 95070; J7674

== ENCOUNTER 2024-07-28 09:23 | Outpatient (RCR) | payer SELFPAY ==
[2024-06-30 00:21] VITALS: BP 145/70; PULSE 70
[2024-06-30 09:09] VITALS: BP 154/78; PULSE 69
[2024-07-05 09:33] VITALS: BP 136/73; PULSE 72
[2024-07-07 10:14] VITALS: BP 144/89; PULSE 74
[2024-07-12 09:45] VITALS: BP 140/68; PULSE 72
[2024-07-26 09:07] VITALS: BP 132/66; PULSE 70
[2024-07-28 09:33] VITALS: BP 144/77; PULSE 67
== END 2024-07-30 23:59 | disposition home or self-care (01) ==
LOC: CR 09:23
PROVIDERS: PCP Family Medicine; Visit Provider Internal Medicine Cardiovascular Disease
DX: R69 Illness, unspecified (principal)

== ENCOUNTER 2024-08-25 09:00 | Outpatient (RCR) | payer SELFPAY ==
[2024-07-31 00:12] VITALS: BP 145/70; PULSE 70
[2024-08-02 09:14] VITALS: BP 145/66; PULSE 65
[2024-08-23 09:15] VITALS: BP 146/75; PULSE 68
[2024-08-25 09:00] VITALS: BP 154/79; PULSE 68
== END 2024-08-29 23:59 | disposition home or self-care (01) ==
LOC: CR 09:00
PROVIDERS: PCP Family Medicine; Visit Provider Internal Medicine Cardiovascular Disease
DX: R69 Illness, unspecified (principal)

== ENCOUNTER 2024-09-14 02:48 | Outpatient (CLI) | payer MEDICARE, SELFPAY ==
[2024-09-14 13:13] LABS: Hemoglobin A1C 5.2 % (<5.7)
[2024-09-14 13:44] LABS: ALT 24 U/L (14-59); AST 18 U/L (15-37); Albumin 4.0 g/dL (3.4-5.0); Alkaline Phosphatase 117 U/L (46-116); Anion Gap 14.0 mmol/L (3-11); BUN 25 mg/dL (7-18); Bilirubin, Total 0.5 mg/dL (0.2-1.0); CO2 23.0 mmol/L (21.0-32.0); Calcium 9.6 mg/dL (8.5-10.1); Calculated LDL 73 mg/dL (<100); Chloride 104 mmol/L (98-107); Cholesterol 161 mg/dL (<200); Estimated GFR 57.66 (mL/min/1.73m2); Glucose 85 mg/dL (74-106); HDL Cholesterol 61 mg/dL (>or=50); Potassium 4.1 mmol/L (3.5-5.1); Sodium 141 mmol/L (136-145); Total Protein 7.0 g/dL (6.4-8.2); Triglyceride 137 mg/dL (<150)
[2024-09-14 19:24] LABS: Hepatitis C Ab w Rflx HCV PCR Negative (Negative)
== END 2024-09-14 02:49 | disposition home or self-care (01) ==
LOC: LOS 02:48
PROVIDERS: PCP Family Medicine; Visit Provider Family Medicine
DX: Z11.59 Encounter for screening for other viral diseases (principal); E11.9 Type 2 diabetes mellitus without complications; I10 Essential (primary) hypertension
CPT/HCPCS: 36415; 80053; 80061; 86803; 83036

== ENCOUNTER 2024-09-27 09:00 | Outpatient (RCR) | payer SELFPAY ==
[2024-08-30 00:06] VITALS: BP 154/79; PULSE 68
[2024-09-01 09:10] VITALS: BP 159/82; PULSE 72; O2SAT 96
[2024-09-06 09:26] VITALS: BP 141/75; PULSE 73
[2024-09-13 09:19] VITALS: BP 146/73; PULSE 67
[2024-09-15 09:17] VITALS: BP 147/77; PULSE 72
[2024-09-20 09:07] VITALS: BP 135/72; PULSE 69
[2024-09-27 09:09] VITALS: BP 139/72; PULSE 68
== END 2024-09-29 23:59 | disposition home or self-care (01) ==
LOC: CR 09:00
PROVIDERS: PCP Family Medicine; Visit Provider Internal Medicine Cardiovascular Disease
DX: R69 Illness, unspecified (principal)

== ENCOUNTER → 2024-10-03 11:17 | Outpatient (BNVA) | payer MEDICARE, SELFPAY | PROVIDERS: PCP Family Medicine; Referring Provider Family Medicine; Visit Provider Internal Medicine Pulmonary Disease | DX: J47.9 Bronchiectasis, uncomplicated (principal); J43.9 Emphysema, unspecified; J18.9 Pneumonia, unspecified organism; Z23 Encounter for immunization; Z87.891 Personal history of nicotine dependence | CPT/HCPCS: 99215; 90471; 90684 ==

== ENCOUNTER 2024-10-03 12:50 | Outpatient (CLI) | payer MEDICARE, SELFPAY | END 2024-10-03 12:51 | disposition home or self-care (01) | LOC: LBO 12:51 | PROVIDERS: PCP Family Medicine; Visit Provider Internal Medicine Pulmonary Disease | DX: J47.9 Bronchiectasis, uncomplicated (principal) | CPT/HCPCS: 36415; 82784; 82785; 86003 ==

== ENCOUNTER 2024-10-17 11:52 | Day surgery (SDC) | payer MEDICARE, SELFPAY ==
[2024-10-17] VITALS (18 sets, daily range): BP systolic 93–167; BP diastolic 50–85; PULSE 61–93; RESP 14–24; TEMP 36.2–36.6; O2SAT 93–98; BMI 29.0
--- NOTE | 2024-10-17 12:19 | ROE_ITS ---
Operative Note Operative Note PRE-OP DIAGNOSIS: Pulmonary infiltrates, bronchiectasis POST-OP DIAGNOSIS: same PROCEDURE: Flexible fiberoptic bronchoscopy, diagnostic SURGEON: Mello Sethi ANESTHESIA TYPE: General LMA/ETT (Under the direction the anesthesiology team and as per anesthesia record) Refer to Anesthesia Record PATHOLOGY: other (Bronchoalveolar lavage were obtained in posterior segment of the right lower lobe and posterior segment of the left lower lobe. Samples were sent for bacterial/fungal/afb cultures, cell count, cytopathology and asper gillus antigen. Biopsies taken: none) Procedure Description: The risks (including bleeding, respiratory failure, and pneumothorax), benefits, and alternatives of the procedure were discussed with the patient and consent was obtained.? A Time Out was held and the above information confirmed. Following the induction of genearl anesthesia, the patient was ventilation through an LMA. The bronchoscope was passed through the LMA. The vocal cords were visualized and lidocaine was topically placed onto the cords. The cords were normal. The scope was then passed into the trachea.?Additional lidocaine was used topically.? A full endobronchial examination was performed.? There were bilateral, thick, opaque secretions in the right and left lower lobe subsegments. Thick secretions were also present in the left mainstem bronchus. The right upper and middle lobes were normal. The left upper lobe was normal. No endobronchial lesions or masses were seen. 100 mL of saline was injected into the posterior segment of the right lower lobe and 20 mL was aspirated. The fluid appeared opaque and cloudy. 50 mL of saline was injected into the posterior segment of the left lower lobe ant ~ 12 mL of cloudy fluid was aspirated. The Patient was taken to the Endoscopy Recovery area in satisfactory condition. Date of Procedure: 10/17/24
[2024-10-17] MEDS: Lactated Ringers 1,000 ML 30 ML IV (12:50)
--- NOTE | 2024-10-17 13:09 | W.ANESPRE ---
General Info Date of Service Date Performed: 10/17/24 Height: 4 ft 10.5 in Weight: 64 kg Body Mass Index (BMI): 29.0 Surgical Procedure: Operation Date: 10/17/24 13:10 Proposed Procedure Side Surgeon p Bronchoscopy Mello Sethi MD Actual Procedure Side Surgeon p Bronchoscopy Not Applicable Mello Sethi MD Pre-Op Diagnosis Post-Op Diagnosis (1) Bronchiectasis: (2) Emphysema lung: (3) Recurrent pneumonia: Meds Allergies and Home Medications Allergies Allergy/AdvReac Type Severity Reaction Status Date / Time pneumococcal vaccine Allergy Intermediate red & itchy Verified 10/17/24 12:23 enalapril Allergy Unknown SKIN RASH Verified 10/17/24 12:23 hydrochlorothiazide Allergy Unknown Unknown Verified 10/17/24 12:23 nitrofurantoin Allergy SKIN RASH Verified 10/17/24 12:23 Sulfa (Sulfonamide Allergy RASH Verified 10/17/24 12:23 Antibiotics) oxycodone AdvReac Intermediate VOMITING Verified 10/17/24 12:23 Home Medication ?Medication ?Instructions ?Recorded calcium 500 mg-vitamin D3 500 1 ea PO DAILY 05/14/12 unit-vitamin K 40 mcg chewable tablet (Viactiv) cholecalciferol (vitamin D3) 25 2 cap PO DAILY 05/14/12 mcg (1,000 unit) capsule docusate sodium 100 mg capsule 100 mg PO .2x/week 05/14/20 cetirizine 10 mg chewable tablet 10 mg PO DAILY 11/19/21 magnesium oxide 500 mg capsule 1,000 mg PO DAILY 11/19/21 triamcinolone acetonide 0.1 % 1 applic topical BID PRN rash #80 08/04/23 topical cream grams dexlansoprazole 60 mg 60 mg PO DAILY #90 caps 01/26/24 capsule,biphase delayed release fluticasone fur. 100 mcg-umeclid 1 inh inhalation Q24H #120 ea 01/26/24 62.5 mcg-vilant 25 mcg inhalat.powder (Trelegy Ellipta) levothyroxine 25 mcg tablet 25 mcg PO DAILY #90 tab-caps 04/18/24 estradiol 2 mg (7.5 mcg/24 hour) 1 vag ring vaginal [id number] #1 ea 04/29/24 vaginal ring (Estring) tirzepatide 10 mg/0.5 mL 10 mg (0.5 mL) subcut QWEEK #8 mL 06/09/24 subcutaneous pen injector albuterol sulfate 90 mcg/actuation 2 puff inhalation Q6H PRN 06/20/24 aerosol inhaler shortness of breath or wheezing #18 grams fluticasone furoate 27.5 1 spray NS BID #47.4 mL 07/09/24 mcg/actuation nasal spray,suspension (Flonase Sensimist) losartan 25 mg tablet 25 mg PO DAILY #90 tab-caps 07/09/24 metoprolol succinate 100 mg 100 mg PO DAILY #90 tabs 07/09/24 tablet,extended release 24 hr sertraline 100 mg tablet 100 mg PO DAILY #90 tabs 07/09/24 mirabegron 50 mg tablet,extended 50 mg PO DAILY #90 tab-caps 07/27/24 release 24 hr atorvastatin 40 mg tablet 40 mg PO QPM #90 tabs 08/29/24 clonazepam 0.5 mg tablet 0.5 mg PO DAILY PRN anxiety #60 08/29/24 tabs nystatin 100,000 unit/gram topical 1 applic topical BID PRN rash #30 08/29/24 cream grams Current Visit Medications: Current Medications Generic Name Dose Route Start Last Admin Trade Name Freq PRN Reason Stop Dose Admin Ringer's Solution 1,000 mls @ 30 mls/hr 10/17/24 06:00 10/17/24 12:50 IV 10/17/24 23:59 30 mls/hr INFUSION LUCERO Administration IV Miscellaneous Supplies 1 each 10/17/24 06:00 Iv Access IV 10/17/24 23:59 DIRECTED LUCERO Sodium Chloride 0 ml 10/17/24 06:00 Normal Saline Flush 10 Ml Syr IV 10/17/24 23:59 PRN PRN Sodium Chloride 0 ml 10/17/24 06:00 Normal Saline 10 Ml Vial IJ 10/17/24 23:59 DIRECTED PRN Sterile Water 0 ml 10/17/24 06:00 Water,Injection,Sterile 10 Ml Vial IJ 10/17/24 23:59 DIRECTED PRN PFSH Active Problems Active Problems: Problem Status Onset Code Muscle pain Acute M79.10 Sacroiliac joint dysfunction of right side Acute M53.3 Recurrent pneumonia Acute J18.9 Emphysema lung Acute J43.9 Lumbar radiculopathy, chronic Acute M54.16 Lumbar radicular pain Acute M54.16 Pars defect of lumbar spine Acute M43.06 Incisional hernia Acute K43.2 Severe low back pain Acute M54.50 DDD (degenerative disc disease), lumbar Acute M51.36 Abdominal hernia Acute K46.9 Thoracic back pain Acute M54.6 Decreased hearing Acute H91.90 Low back pain Acute M54.50 Bronchiectasis Acute J47.9 Vaginal discharge Acute N89.8 Lumbosacral spondylosis without myelopathy Acute M47.817 Breast lump in female Acute N63.0 URI (upper respiratory infection) Acute J06.9 Left knee pain Acute M25.562 Atrophy of vagina Acute N95.2 Obesity, morbid (more than 100 lbs over ideal weight or BMI > 40) Acute E66.01 Anxiety Chronic F41.9 Balance problems Acute 01/02/15 R26.89 Diabetes mellitus with diabetic nephropathy Acute 03/28/14 E11.21 Gout Acute M10.9 Hiatal hernia Chronic K44.9 Bronchiolectasis Acute J47.9 Synovial cyst of left knee Chronic 10/23/15 M71.22 Organic sleep apnea, 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 Multinodular goiter Chronic 10/22/16 E04.2 Hypothyroid Chronic E03.9 Hyperlipidemia Chronic E78.5 Essential hypertension Chronic 11/30/12 I10 Esophageal reflux Chronic K21.9 Depressive disorder Chronic F32.9 Medical History Medical History Tremor SOB (shortness of breath) Sacroiliac joint dysfunction of right side Iliotibial band syndrome, right leg Pelvic floor dysfunction DJD (degenerative joint disease), lumbar Knee pain Degenerative joint disease of right hip Mild Trochanteric bursitis, right hip Depo-Medrol injection: 02/15/2021 Degenerative joint disease of right knee Depo-medrol injection: 01/04/21 Urinary incontinence Piriformis syndrome Knee pain Lesion of tongue Arthritis of right shoulder region Hypoalbuminemia Due to multiple recent surgeries and having open chronic wound Anemia Multifactorial in nature. Partially from chronic disease. Partially from iron deficiency anemia. Partially from renal issues Postoperative stitch abscess Ventral hernia Abdominal wall abscess Abdominal abscess Rupture of left long head biceps tendon Impingement syndrome of left shoulder Bursitis of left shoulder Left rotator cuff tear Ear lesion Wound dehiscence Ovarian mass, right Social anxiety disorder Chronic left shoulder pain Asthma (05/17/12) Bronchitis (04/07/16) First degree hemorrhoids (01/02/15) Giardiasis Hypokalemia Impaired renal function disorder (01/29/03) Irritable colon (01/29/97) Left anterior knee pain (10/01/15) Osteoarthritis (05/30/06) Primary fibromyalgia syndrome Shoulder pain Smoker Strain of gastrocnemius muscle of left lower extremity (12/10/15) Primary fibromyalgia syndrome Hypokalemia secondary to HCTZ Giardiasis Smoker quit 1982 Gout secondary to HCTZ Irritable colon 01/29/97 w/lactose intolerance Impaired renal function disorder 01/29/03 Osteoarthritis 05/30/06 right thumb Edema 06/29/06 left leg; neg u/s Acute gastritis without mention of hemorrhage 10/31/09 Nuclear sclerosis 05/11/12 DM (diabetes mellitus) 05/11/12 A1C 6.6 03/16 Asthma 05/17/12 Diabetes mellitus with nephropathy 03/28/14 First degree hemorrhoids 01/02/15 Rash and nonspecific skin eruption 02/01/15 Strain of gastrocnemius muscle of left lower extremity 12/10/15 subsequent encounter Vaginal atrophy (01/02/15) Shoulder pain MRI 05/05 NEG ROTATOR CUFF TEAR. MILD BRUSITIS-?DEGENERATION OF LABRUM S/P OPERATION rotator cuff repair x 2 Neck pain bilateral foraminal narrowing at C5-C6; C4-C-5 s/p back surgery Low back pain (11/29/05) 1 cm. ant. and lat. mass ? disc/synovial cyst; marked compression of nerve root; 07/06-Post surgery MRI=scarring left; multi level DJD/ sm. extended disc L2-3; L4-5 Left anterior knee pain (10/01/15) Increased body mass index Incontinence in female (10/19/17) Chronic cough (11/20/16) Balance problem (01/02/15) Medical History Comments:: headache 10/09 Surgical History Surgical History History of bladder suspension procedure History of bilateral breast reduction surgery (01/09/14) History of bilateral ligation of fallopian tubes History of spinal surgery Status post cataract extraction and insertion of intraocular lens Status post cholecystectomy Status post rotator cuff repair History of bladder suspension procedure laproscopic History of bilateral tubal ligation S/P cholecystectomy 03/02/94 History of back surgery 04/30/06 excision of spinal cord lesion S/P cataract extraction and insertion of intraocular lens 08/30/12 Dr. Garcia; OD H/O bilateral breast reduction surgery 01/09/14 difficult healing History of reduction mammoplasty (02/07/14) back surgery (~04/2006) EXCIS SPINAL CORD LESION Ligation of fallopian tube (~1976) Rotator Cuff Repair x 2 Colonoscopy - MAC (~2003) Cholecystectomy (~1994) 1995 Extraction of cataract (09/07/12) DR. GARCIA; RIGHT EYE/LEFT EYE Reduction mammoplasty (~2013) Bladder Surgery laparoscopic Bladder suspension Tobacco Smoking/Tobacco Use Status: Former Tobacco Use Passive smoking exposure: Yes Second hand exposure: Yes Alcohol Alcohol Intake: current Alcohol intake frequency: a few times a month Alcohol type: wine Substance Use Substance use: Never Substance use type: does not use Vital Signs and Lab Results Vital Signs Most Recent Vital Signs in EMR: Most Recent Vital Signs Temp Pulse Resp BP Pulse Ox 36.6 C 61 18 165/85 H 98 10/17/24 12:04 10/17/24 12:04 10/17/24 12:04 10/17/24 12:04 10/17/24 12:04 Point of Care Results Point of Care Results: Finger Stick Blood Glucose 100 10/17/24 12:18 Anesthesia Assessment and Plan Anesthesia History Personal History: No History of Anesthesia Complications Family History: No Family History of Anesthesia Complications Exercise Tolerance Exercise Tolerance: Metabolic Equivalents>4 Pertinent Negatives Pertinent Negatives: No Symptoms of GERD Cardiac & Pulmonary Exam Cardiac Exam: Normal S1/S2 Heart Sounds Pulmonary Exam: Clear Bilateral Breath Sounds Implantable Cardiac Device Does patient have a Pacemaker or an ICD?: No Airway Exam Known Difficult Airway: No Mallampati Class: 2 Mouth Opening: Normal (> 3cm) Thyromental Distance: Greater than 3 cm Neck Range of Motion: Full ROM Neck Circumference: Normal Teeth Condition: Normal Dentition ASA Classification ASA Score: ASA 3 Emergency Case?: No NPO Status NPO Status: NPO Clears >2 hours, Solids >8 hours Anesthesia Plan Resuscitation Status: Full Code Anesthesia Technique: General Anesthesia Airway Planned: LMA Monitors Used: Standard Monitors
--- NOTE | 2024-10-17 13:30 | PAPNONF_PTH ---
PATIENT: Kaycee Miles LOC: [facility] U#:[id number] AGE/SX: 79/F ROOM: RE10/17/[address]: Mello Sethi : 1945 BED: DIS: 10/17/2024 SPEC #: [id number] RECD: 10/17/24 18:13 STATUS: TIMO RESteven #: [id number] IAIN: 10/17/24 13:[address]: Mello Sethi DEPT: [facility] Cytology RECD BY: Velvet Ortiz ENTERED: 10/17/24 18:15 SP TYPE: SUNI EDWARD DR: Khalida Cole MD, DC Tissues: 1 - BODY FLUID CYTO(NOT S/U/N/EM)[facility] 2 - BODY FLUID CYTO(NOT S/U/N/EM)[facility] Procedures: BODY FLUID CYTO(NOT SPU/UR/NIP/ENDOM)[facility] Comments: [id number] (SENT FRESH) (REFRIGERATED)
[2024-10-17] MEDS: Lidocaine 1% Pres-Free 5 ML VIAL (13:36)
[2024-10-17] MEDS: Acetaminophen 325 MG TAB 650 MG PO (15:24)
--- NOTE | 2024-10-17 15:37 | W.ANESPOSTOP ---
Postoperative Evaluation Date, Time and Location Date Performed: 10/17/24 Time Performed: 15:37 Patient Location: Day Surgery Unit Vital Signs Most Recent Imported Vital Signs: Most Recent Vital Signs Temp Pulse Resp BP Pulse Ox 36.3 C L 68 16 140/74 95 10/17/24 15:12 10/17/24 15:12 10/17/24 15:12 10/17/24 15:12 10/17/24 15:12 Pain Score Most Recent Pain Score: Most Recent Pain Score Pain Level 8 10/17/24 14:31 Assessment Mental Status: Awake (Alert & Oriented to Patient Baseline) Airway and Respiratory Function: Patent airway with normal (patient baseline) respiratory exam Cardiovascular Function: Hemodynamically Stable Hydration Status: Adequately Hydrated Nausea & Vomiting: No Nausea or Vomiting Pain: Pt. Denies Any Pain Peripheral Nerve Block: Patient did not receive a nerve block
== END 2024-10-17 15:40 | disposition home or self-care (01) ==
PROVIDERS: PCP Family Medicine; Visit Provider Internal Medicine Pulmonary Disease
PROC: 0BJ08ZZ Inspection of Tracheobronchial Tree, Via Natural or Artificial Opening Endoscopic (ICD-10-PCS; CPT 31622; principal; 2024-10-17 13:00)
DX: J47.9 Bronchiectasis, uncomplicated (principal); R91.8 Other nonspecific abnormal finding of lung field
CPT/HCPCS: 31624; 00123; 80162; 87070; 87102; 87116; 87205; 87206; 87305; 88104; J2003; J2704

== ENCOUNTER 2024-10-27 09:00 | Outpatient (RCR) | payer SELFPAY ==
[2024-09-30 00:05] VITALS: BP 139/72; PULSE 68
[2024-10-04 09:14] VITALS: BP 140/73; PULSE 63
[2024-10-06 09:41] VITALS: BP 156/85; PULSE 71
[2024-10-11 09:00] VITALS: BP 134/75; PULSE 67
[2024-10-13 09:18] VITALS: BP 135/73; PULSE 68
[2024-10-20 09:03] VITALS: BP 151/84; PULSE 71
[2024-10-25 09:20] VITALS: BP 143/79; PULSE 74
[2024-10-27 09:02] VITALS: BP 151/85; PULSE 70
== END 2024-10-30 23:59 | disposition home or self-care (01) ==
LOC: CR 09:00
PROVIDERS: PCP Family Medicine; Visit Provider Internal Medicine Cardiovascular Disease
DX: R69 Illness, unspecified (principal)

== ENCOUNTER 2024-11-29 09:00 | Outpatient (RCR) | payer SELFPAY ==
[2024-11-01 09:39] VITALS: BP 140/83; PULSE 68
[2024-11-03 09:26] VITALS: BP 146/80; PULSE 72
[2024-11-08 09:28] VITALS: BP 138/78; PULSE 66
[2024-11-10 09:25] VITALS: BP 136/80; PULSE 69
[2024-11-15 10:42] VITALS: BP 150/80; PULSE 68
[2024-11-17 15:13] VITALS: BP 143/82; PULSE 72
[2024-11-22 09:11] VITALS: BP 139/76; PULSE 67
[2024-11-29 09:13] VITALS: BP 161/84; PULSE 70
== END 2024-11-29 23:59 | disposition home or self-care (01) ==
LOC: CR 09:00
PROVIDERS: PCP Family Medicine; Visit Provider Internal Medicine Cardiovascular Disease
DX: R69 Illness, unspecified (principal)

== ENCOUNTER 2024-12-08 16:19 | Outpatient (CLI) | payer MEDICARE, SELFPAY | END 2024-12-08 16:20 | disposition home or self-care (01) | LOC: LBO 16:23 | PROVIDERS: PCP Family Medicine; Visit Provider Internal Medicine Pulmonary Disease | DX: J47.9 Bronchiectasis, uncomplicated (principal) | CPT/HCPCS: 36415; 86317; 82784; 82787 ==

== ENCOUNTER 2024-12-26 00:31 | Outpatient (CLI) | payer MEDICARE, SELFPAY ==
[2024-12-26 14:40] LABS: Abs Immature Grans 0.01 10^3/uL (0.0-0.06); HCT 38.0 % (36.0-46.0); HGB 11.9 g/dL (11.2-15.7); Immature Grans % 0.2 %; MCH 29.9 pg (27.0-33.0); MCHC 31.3 % (32.0-36.0); MCV 96 fL (80-95); MPV 10.6 fL (8.0-11.0); Platelet Count 233 10^3/uL (130-400); RBC 3.98 10^6/uL (3.93-5.22); RDW 14.0 % (11.7-14.6); RDW-SD 48.8 fL; WBC 6.33 10^3/uL (4.4-10.8)
[2024-12-26 14:55] LABS: ALT 20 U/L (14-59); AST 15 U/L (15-37); Albumin 3.7 g/dL (3.4-5.0); Alkaline Phosphatase 127 U/L (46-116); Anion Gap 7.6 mmol/L (3-11); BUN 22 mg/dL (7-18); Bilirubin, Total 0.4 mg/dL (0.2-1.0); CO2 27.4 mmol/L (21.0-32.0); Calcium 9.3 mg/dL (8.5-10.1); Chloride 104 mmol/L (98-107); Estimated GFR 51.43 (mL/min/1.73m2); Glucose 72 mg/dL (74-106); Potassium 4.2 mmol/L (3.5-5.1); Sodium 139 mmol/L (136-145); Total Protein 7.2 g/dL (6.4-8.2)
== END 2024-12-26 00:32 | disposition home or self-care (01) ==
LOC: LOS 00:31
PROVIDERS: PCP Family Medicine; Visit Provider Family Medicine
DX: I10 Essential (primary) hypertension (principal); R19.7 Diarrhea, unspecified
CPT/HCPCS: 36415; 80053; 85025

== ENCOUNTER 2024-12-29 09:00 | Outpatient (RCR) | payer SELFPAY ==
[2024-11-30 00:20] VITALS: BP 161/84; PULSE 70
[2024-12-13 09:29] VITALS: BP 147/73; PULSE 65
[2024-12-20 09:10] VITALS: BP 156/71; PULSE 64
[2024-12-27 09:22] VITALS: BP 144/78; PULSE 65
[2024-12-29 09:08] VITALS: BP 165/82; PULSE 69; O2SAT 98
== END 2024-12-30 23:59 | disposition home or self-care (01) ==
LOC: CR 09:00
PROVIDERS: PCP Family Medicine; Visit Provider Internal Medicine Cardiovascular Disease
DX: R69 Illness, unspecified (principal)

== ENCOUNTER 2025-01-09 13:54 | Outpatient (REF) | payer MEDICARE, SELFPAY ==
[2025-01-09 15:58] LABS: EPI 027-NAP1-B1 PRESUMPTIVE NEGATIVE
[2025-01-10 13:20] LABS: Helicobacter pylori Ag, Feces Negative (Negative)
[2025-01-10 15:09] LABS: Campylobacter PCR Negative (Negative); Shiga Toxin PCR Negative (Negative); Shigella/Enteroinvasive Ecoli Negative (Negative)
== END 2025-01-09 13:55 | disposition home or self-care (01) ==
LOC: LBN 13:54
PROVIDERS: PCP Family Medicine; Visit Provider Family Medicine
DX: R19.7 Diarrhea, unspecified (principal)
CPT/HCPCS: 87015; 87269; 87272; 87338; 87505; 83630; 83993

== ENCOUNTER 2025-01-11 10:30 | Outpatient (CLI) | payer MEDICARE, SELFPAY ==
--- NOTE | 2025-01-11 06:00 | DI.RAD_ITS ---
Exam(s) XR PAIN CLINIC SACRIOILIAC 2V EXAM: XR PAIN CLINIC SACRIOILIAC 2V CLINICAL HISTORY: DX: Sacroiliac Dysfunction. TECHNIQUE: Fluoroscopy was provided for the referring physician for guidance with performing pain clinic injection procedure. COMPARISON: No exams were available for comparison FINDINGS: Please see procedure note for details. Fluoro time: 22.2 seconds RADIATION DOSE DELIVERED: Ka,r=3.9 mGy
[2025-01-11 10:40] VITALS: BP 145/73; PULSE 69; RESP 18; TEMP 36.5; O2SAT 99
--- NOTE | 2025-01-11 11:07 | PDOC.PAIN ---
Date of service: 01/11/25 Time of Service: 11:07 Pain Managment Procedure Note Procedure Note Procedure Note: PROCEDURE NOTE RIGHT INTRA-ARTICULAR SACROILIAC JOINT INJECTION Date of Service: January 11, 2025 Patient: Kaycee Miles Provider: Javier Garcia DO, MPH COMMENTS: I previously evaluated the patient in the office and their symptoms in relation to the sacroiliac joint pain have remained the same. 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 Kaycee was interviewed and the medical record reviewed. There were no medical, pharmacologic, radiographic or other structural contraindications to attempting a fluoroscopically-guided, contrast-enhanced, intra-articular Sacroiliac joint injection. The risks, benefits, and potential side effects of this procedure were reviewed with the patient. Questions and concerns were addressed. After it was clear that Kaycee was fully informed about the procedure, the printed consent form was signed by the patient and myself. Kaycee was placed in the prone position on the fluoroscopy table and an automated blood pressure cuff, 3 lead EKG, and pulse oximeter were applied. The skin entry point for approaching the Right sacroiliac joint was identified under the most advantageous fluoroscopic view and marked. Following thorough Chlorhexadine preparation of the skin and draping with sterile surgical drapes, 2 mls of 1% lidocaine was infiltrated into the skin at the entry point and the surrounding subcutaneous tissues. Next, a 3.5 22G spinal needle was placed under fluoroscopic guidance into the Right sacroiliac joint. Intra-articular placement was confirmed by a clear arthrogram resulting from the injection of 0.25ml of Omnipaque-240. Next, 2 ml of Depo- Medrol 40 mg/ml was injected intra-articularly with an initial reproduction of a significant component of the usual pain. This was followed with 1 ml of 1% Lidocaine. The needle was then removed without difficulty. (49 ml of Omnipaque-240 was wasted). Kaycee's vital signs were stable throughout the procedure and were as recorded in nursing records. Follow up plans and appointments were discussed with Kaycee. Post procedure instructions were given as documented in nursing records. Having met discharge criteria, Kaycee was [facility] from the [facility] COMMENTS: Post-procedure pain: VAS= 0/10. If the patient receives at least 50% improvement in pain and/or function for at least 3 months, this procedure can be repeated if needed. I personally performed this entire procedure. JAVIER GARCIA DO, MPH ABPMR-subspecialty board certification in Pain Medicine [facility] Coding Conscious Sedation used for procedure: No CPT Codes: SI Joint Inj; incl Fluoro - 78309 ([id number] ~G) Additional Codes: Date of Service (13978) Diagnoses: Sacroiliac joint dysfunction
[2025-01-11] MEDS: Nerve Block Tray 1 EACH MC (11:12)
[2025-01-11] MEDS: Omnipaque 240 MG/ML 50 ML BTL IJ (11:15)
[2025-01-11] MEDS: methylPREDNISolone ACETATE 40 MG/ML VIAL IJ (11:15)
[2025-01-11 11:18] VITALS: BP 144/77; PULSE 71; RESP 15; O2SAT 99
== END 2025-01-11 10:31 | disposition home or self-care (01) ==
LOC: PC 10:31
PROVIDERS: PCP Family Medicine; Visit Provider Preventive Medicine Occupational Medicine
DX: M54.50 Low back pain, unspecified (principal); M53.3 Sacrococcygeal disorders, not elsewhere classified
CPT/HCPCS: 27096; 72200; J1010; Q9967

== ENCOUNTER 2025-01-24 09:00 | Outpatient (RCR) | payer SELFPAY ==
[2024-12-31 00:24] VITALS: BP 165/82; PULSE 69
[2025-01-03 09:16] VITALS: BP 136/74; PULSE 69
[2025-01-05 09:31] VITALS: BP 139/77; PULSE 73
[2025-01-10 09:12] VITALS: BP 151/78; PULSE 73
[2025-01-17 09:16] VITALS: BP 148/79; PULSE 64
[2025-01-19 09:25] VITALS: BP 138/77; PULSE 66
[2025-01-24 09:35] VITALS: BP 147/77; PULSE 67
== END 2025-01-29 23:59 | disposition home or self-care (01) ==
LOC: CR 09:00
PROVIDERS: PCP Family Medicine; Visit Provider Internal Medicine Cardiovascular Disease
DX: R69 Illness, unspecified (principal)

== ENCOUNTER 2025-02-01 10:28 | Outpatient (CLI) | payer MEDICARE, SELFPAY ==
[2025-02-01 10:33] VITALS: BP 121/65; PULSE 67; RESP 18; TEMP 36.7; O2SAT 98
[2025-02-01 11:24] VITALS: PULSE 75; O2SAT 98
[2025-02-01 11:30] VITALS: PULSE 71; O2SAT 100
[2025-02-01 11:40] VITALS: PULSE 71; O2SAT 99
[2025-02-01] MEDS: Nerve Block Tray 1 EACH MC (11:50)
[2025-02-01] MEDS: Lidocaine 2% Multi-Dose 20 ML VIAL IJ (11:50)
[2025-02-01] MEDS: methylPREDNISolone ACETATE 40 MG/ML VIAL IJ (11:50)
--- NOTE | 2025-02-01 15:26 | PDOC.PAIN_ITS ---
Date of service: 02/01/25 Time of Service: 11:11 US Guided Injections Type of Ultrasound Guided Injection: Middle back Bilateral Paraspinous muscle Trigger Point Injection Pre-Procedural Evaluation Tenderness to palpation at the middle of the mid-back paraspinous muscles Referral Patient has been referred to the Pain Management Center for Bilateral Paraspinous muscle Middle back Trigger Point Injection for a chief complaint of Bilateral mid-back pain Pre-Procedural Pain Score Pre-procedural pain score: 8/10 Reason for Exam Mid-back pain Patient Interview Patient was interviewed and medical record reviewed: Yes There were no contraindications to performing an US guided procedure. Risks,expected side effects, potential benefits were reviewed. The patient consent form was signed and witnessed. Standard time out procedure was performed. Patient Safety No significant skin abnormalities at the proposed injection sites Procedure Description No sedation given for procedure Patient was placed in the prone position and the following Pulse Ox applied. Pre-Procedure ultrasound scanning performed using a Linear 9 MHz probe Site Preparation Chloroprep Local Anesthesia Skin and subcutaneous tissues anesthetized with: 5 mL of Lidocaine 2%. A Other (1.5 25G skin needle) was placed under live US guidance using an in-plane approach to the target area. After visualization of the needle tip at the target area Depo-Medrol 40mg per cc and Lidocaine 2% were used. Total of Injectate/Medication Note: 8 cc 2% Lidocaine and 1 cc of Depomedrol Negative aspiration for blood. [place] were removed without difficulty. Ultrasound images were captured and stored. Patient Mental Status Patient was alert during procedure Vital Signs Vital signs were stable throughout the procedure Follow Up/Discharge Follow up plans and appointments were discussed with patient. Post procedure instruction was given as documented in nursing documentation. Discharge criteria met and patient discharged from Pain Management Center: Yes Post Procedure Pain Post Procedure Pain: 0/10 Patient tolerated procedure well Procedure Outcome: Successful Non US Guided Injections Procedure Description Patient was placed in the prone position Post Procedure Pain Post Procedure Pain: 0/10 Coding Conscious Sedation used for procedure: No CPT Codes: TPI Single/Multi 1 or 2 Muscles *BILATERAL* - [id number] ([id number]~G5) Additional Codes: Date of Service (51800) Visualization of the needle tip - Ultrasound images captured/stored: Yes ([id number]) Diagnoses: Muscle pain
== END 2025-02-01 10:29 | disposition home or self-care (01) ==
LOC: PC 10:28
PROVIDERS: PCP Family Medicine; Visit Provider Preventive Medicine Occupational Medicine
DX: M54.6 Pain in thoracic spine (principal); M79.18 Myalgia, other site
CPT/HCPCS: 20552; 20553; 76942; J1010; J2003

== ENCOUNTER → 2025-02-09 01:07 | Outpatient (CLI) | payer MEDICARE, SELFPAY ==
--- NOTE | 2025-02-09 06:45 | DI.US_ITS ---
Exam(s) US ABDOMEN EXAM: US ABDOMEN CLINICAL HISTORY: epigastric abd pain, change in stool color, nausea,r10.9 TECHNIQUE: Ultrasound abdomen performed using standard protocol. COMPARISON: CT CT ABDOMEN PELVIS W from 12/30/2023 FINDINGS: LIVER: Normal size and echogenicity. No focal liver lesions are seen. GALLBLADDER: Status post cholecystectomy. BILIARY SYSTEM: No intrahepatic or extrahepatic biliary ductal dilation. KIDNEYS: Kidneys are symmetric in size. No evidence of renal calculi. No evidence of hydronephrosis. Stable simple cyst at the lower pole of the left kidney. No suspicious renal mass is identified. PANCREAS: Normal where visualized. SPLEEN: Not enlarged. Heavy atherosclerotic calcifications. ABDOMINAL AORTA AND IVC: Visualized portions normal caliber. ASCITES: None seen. IMPRESSION: Status post cholecystectomy. No acute abnormality. DATA REPOSITORY:
== END ==
LOC: DI 01:08
PROVIDERS: PCP Family Medicine; Visit Provider Family Medicine
DX: R10.9 Unspecified abdominal pain (principal)
CPT/HCPCS: 76700

== ENCOUNTER 2025-02-28 09:00 | Outpatient (RCR) | payer SELFPAY ==
[2025-01-30 00:10] VITALS: BP 147/77; PULSE 67
[2025-02-02 09:39] VITALS: BP 141/76; PULSE 70
[2025-02-07 09:28] VITALS: BP 141/72; PULSE 63
[2025-02-14 09:01] VITALS: BP 151/68; PULSE 65
[2025-02-16 09:24] VITALS: BP 153/72; PULSE 63
[2025-02-21 09:36] VITALS: BP 158/76; PULSE 61
[2025-02-28 09:27] VITALS: BP 140/71; PULSE 58
== END 2025-03-01 23:59 | disposition home or self-care (01) ==
LOC: CR 09:00
PROVIDERS: PCP Family Medicine; Visit Provider Internal Medicine Cardiovascular Disease
DX: R69 Illness, unspecified (principal)